=== PATIENT | male | born 1945 | race Caucasian/White ===

== ENCOUNTER → 2016-10-23 | Outpatient (CLI) | payer MEDICARE ==
[~2016-10-23] VITALS: Ht 177.8 cm; Wt 70.3 kg
[~2016-10-23] MED LIST: ACET325T49 PEG; BACI28.4 TOP; CYAN250010 PO; DOCU-143 PO; FAMO20TA5 PEG; FOLI1TAB24 PEG; HYDR-3820 PO; LIDOCAINE 1% INJ 20 ML (XYLOCAINE) VIAL ONE; LISI10TA2 PO; MAGN420T PO; NYST15CR TP; POTA20PA28 PO; PYRI50TA10 PO; SERT50TA2 PO; TAMS0.4C98 PO; THIA100T12 PO; TRAM-42 PO
--- NOTE | 2016-10-23 16:08 | Diagnostic Imaging Report ---
EXAMINATION: Ultrasound guided thoracentesis-right. INDICATION: Right pleural effusion. CONSENT: Informed consent was obtained from the patient. The risks, benefits, potential complications and alternatives were reviewed and all questions answered to the patient's satisfaction. FINDINGS: Moderate right pleural effusion with mild degree and minimal septation seen. PROCEDURE: After sterile preparation and draping, 1% lidocaine was utilized for local anesthesia. An appropriate intercostal approach is selected based on preliminary scanning with ultrasound. Under live visualization with ultrasound, 6.5 Maltese drainage catheter is introduced with trocar technique into the right pleural space. Image of proper location of the needle is documented. The needle is removed and the sheath is left in the pleural space. A total of 0.8 L of serous yellow fluid is drained. The sheath is removed at the end of the drainage procedure. The fluid is sent to the lab for Analysis. The patient tolerated the procedure well with no immediate complications. IMPRESSION: Successful ultrasound-guided thoracentesis on the right. Dictated by: Dictated on workstation # [id number]
[2016-10-23 16:26] LABS: GLUCOSE,BODY FLUID 99 MG/DL
[2016-10-23 16:27] LABS: LDH,BODY FLUID 202 U/L; TOTAL PROTEIN,BODY FLUID 2.9 G/DL
--- NOTE | 2016-10-23 18:01 | Diagnostic Imaging Report ---
EXAMINATION: AP and lateral views of the chest. INDICATION: Chronic back pain. Status post thoracentesis. FINDINGS: There is a mild opacity in the right lung base may relate to atelectasis. The left lung is clear. The heart size is normal. No effusion or pneumothorax. The mediastinum and nicolas appear unremarkable. IMPRESSION: Mild right basilar opacity might relate to atelectasis. Dictated by: Dictated on workstation # [id number]
== END ==
LOC: RAD 14:59 → EDBD 14:59
PROVIDERS: ATTEND Internal Medicine Critical Care Medicine
DX: J90 Pleural effusion, not elsewhere classified (principal); R91.8 Other nonspecific abnormal finding of lung field; M54.9 Dorsalgia, unspecified
CPT/HCPCS: 32555; 71020; 82945; 83615; 84157; 87070; 87075; 87205; 88112; 88305; 89051

== ENCOUNTER → 2016-10-30 | Outpatient (CLI) | payer MEDICARE, OTHER ==
[~2016-10-30] MED LIST changes: +CATHETER FLUSH 10 ML SYR IV PRN; +IOHEXOL 350 MG/ML 100 ML (OMNIPAQUE 350) VIAL IV ONE; -LIDOCAINE 1% INJ 20 ML (XYLOCAINE) VIAL ONE; +NS 100 ML (IVPB) BAG IV ONE
[2016-10-30 10:12] LABS: BLOOD UREA NITROGEN 6 MG/DL (7-18); BUN/CREATININE RATIO 12; CREATININE SERUM 0.51 MG/DL (0.60-1.30); GFR ESTIMATED > 60
--- NOTE | 2016-10-30 11:08 | Diagnostic Imaging Report ---
PROCEDURE: CT chest with contrast only. TECHNIQUE: Multiple contiguous axial images were obtained through the chest after administration of intravenous contrast. INDICATION: Lung nodule, pleural fluid. Thoracentesis one week ago. There is no pneumothorax. Comparison limited to an outside study performed 10/12/2016 with only its coronal and sagittal reconstructions. The axial data not submitted. When differing modalities taken into account the right pleural fluid volume present today is likely at least mildly decreased from the previous. Layers to an AP depth of 3.1 cm subjacent dependent basilar atelectasis noted. Ectasia in the ascending aorta 4.4 cm present. The arch and descending thoracic aorta nonaneurysmal. No dissection, mural hemorrhage or vessel rupture. There is no pericardial effusions. Coronary arterial calcifications chronic. There is no hilar or mediastinal lymphadenopathy. Some air trapping and features of COPD. A few scattered micronodules are noted in the right middle lobe. Tiny nodule measuring 3 mm present. An additional right upper lobe nodule anteriorly is 3.8 mm. A few minute 2-3 mm subpleural nodular foci bilaterally are noted. There was no dominant or spiculated lung mass. No acute soft tissue or osseous chest wall pathology. The visualized upper abdomen shows no focal acute abnormality. IMPRESSION: Pleural fluid probably decreased in volume from recent outside study. There is no pneumothorax. There is no thoracic adenopathy. There is mild basilar atelectasis. There are a few tiny micronodules in the lungs with no dominant or suspicious appearing mass. Followup in 6-12 months recommended. Ascending aortic ectasia 4.4 cm without rupture or dissection. Coronary arterial atherosclerotic vascular calcifications noted. Dictated by: Dictated on workstation # [id number]
== END ==
LOC: RAD 09:39
PROVIDERS: ATTEND Internal Medicine Critical Care Medicine
DX: R91.8 Other nonspecific abnormal finding of lung field (principal); I25.10 Atherosclerotic heart disease of native coronary artery without angina pectoris; I77.811 Abdominal aortic ectasia; J90 Pleural effusion, not elsewhere classified
CPT/HCPCS: 36415; 71260; 82565; 84520

== ENCOUNTER 2016-11-11 09:55 | Outpatient (CLI) | payer MEDICARE, OTHER ==
[~2016-11-11] VITALS: Ht 177.8 cm; Wt 65.8 kg
[2016-11-11 10:05] VITALS: BP 103/55
[2016-11-11 10:47] LABS: BASOPHILS % (AUTO) 1 % (0-10); EOSINOPHILS # (AUTO) 0.2 10^3/uL (0.0-0.3); EOSINOPHILS % (AUTO) 3 % (0-10); LYMPHOCYTES # (AUTO) 1.1 X 10^3 (1.0-4.0); LYMPHOCYTES % (AUTO) 18 % (12-44); MEAN CORPUSCULAR HEMOGLOBIN 29 PG (25-34); MEAN CORPUSCULAR HGB CONC 33 G/DL (32-36); MEAN CORPUSCULAR VOLUME 86 FL (80-99); MEAN PLATELET VOLUME 9.6 FL (7.4-10.4); MONOCYTES # (AUTO) 0.7 X 10^3 (0.0-1.0); MONOCYTES % (AUTO) 11 % (0-12); NEUTROPHILS # (AUTO) 4.1 X 10^3 (1.8-7.8); NEUTROPHILS % (AUTO) 66 % (42-75); PLATELET COUNT 364 10^3/uL (130-400); RED BLOOD COUNT 3.98 10^6/uL (4.35-5.85); RED CELL DISTRIBUTION WIDTH 13.7 % (10.0-14.5); WHITE BLOOD COUNT 6.2 10^3/uL (4.3-11.0)
[2016-11-11] MEDS ORDERED: SERT50TA2 PO (10:49)
[2016-11-11] MEDS ORDERED: TRAM-42 PO (10:49)
[2016-11-11] MEDS ORDERED: DOCU-143 PO (10:49)
[2016-11-11] MEDS ORDERED: THIA100T12 PO (10:49)
[2016-11-11] MEDS ORDERED: LISI10TA2 PO (10:49)
[2016-11-11] MEDS ORDERED: PYRI50TA10 PO (10:49)
[2016-11-11] MEDS ORDERED: CYAN250010 PO (10:49)
[2016-11-11] MEDS ORDERED: TAMS0.4C98 PO (10:49)
[2016-11-11 11:06] LABS: ANION GAP 11 MMOL/L (5-14); BLOOD UREA NITROGEN 14 MG/DL (7-18); BUN/CREATININE RATIO 25; CALCIUM 8.4 MG/DL (8.5-10.1); CARBON DIOXIDE 23 MMOL/L (21-32); CHLORIDE 102 MMOL/L (98-107); CREATININE SERUM 0.55 MG/DL (0.60-1.30); GFR ESTIMATED > 60; GLUCOSE 105 MG/DL (70-105); POTASSIUM 4.2 MMOL/L (3.6-5.0); SODIUM 136 MMOL/L (135-145)
[2016-11-28] MEDS ORDERED: POTA20PA28 PO (12:35)
[2016-11-28] MEDS ORDERED: FAMO20TA5 PEG (12:35)
[2016-11-28] MEDS ORDERED: FOLI1TAB24 PEG (12:35)
[2016-11-28] MEDS ORDERED: BACI28.4 TOP (12:35)
[2016-11-28] MEDS ORDERED: NYST15CR TP (12:35)
[2016-11-28] MEDS ORDERED: ACET325T49 PEG (12:35)
== END 2016-11-11 10:35 | disposition home or self-care (01) ==
LOC: PREOP 09:55
PROVIDERS: ATTEND Orthopaedic Surgery Orthopaedic Surgery of the Spine
DX: Z01.812 Encounter for preprocedural laboratory examination (principal); Z11.2 Encounter for screening for other bacterial diseases; M48.02 Spinal stenosis, cervical region; Z22.322 Carrier or suspected carrier of Methicillin resistant Staphylococcus aureus
CPT/HCPCS: 36415; 80048; 85025; 87081

== ENCOUNTER 2016-11-17 09:32 | Inpatient (IN) | payer MEDICARE, OTHER ==
[~2016-11-17] VITALS: Ht 177.8 cm; Wt 65.8 kg
[~2016-11-17 09:32] MED LIST changes: -ACET325T49 PEG; -BACI28.4 TOP; -CATHETER FLUSH 10 ML SYR IV PRN; -FAMO20TA5 PEG; -FOLI1TAB24 PEG; -HYDR-3820 PO; -IOHEXOL 350 MG/ML 100 ML (OMNIPAQUE 350) VIAL IV ONE; -MAGN420T PO; -NS 100 ML (IVPB) BAG IV ONE; -NYST15CR TP; -POTA20PA28 PO
--- OUTSIDE RECORDS SUMMARY | 2016-11-17 09:38 | XMS REPORT | Continuity of Care Document ---
Author Author [facility] Organization [facility] Address Unknown Phone Unavailable Care Team Providers Care Machine Bender Name Role Phone MARIANA GIBBS DO PCP Insurance Providers Payer Name Policy Number Subscriber Name Relationship [employer] [id number] Anthony Grider 20 Self / Same As Patient [facility] [id number] Anthony Grider Self / Same As Patient Advance Directives Directive Response Recorded Date/Time Advance Directives Yes 11/11/16 10:06am Health Care Power of Repairer Helper Yes 11/11/16 10:06am Organ Donor Yes 11/11/16 10:06am Resuscitation Status Full Code 11/11/16 10:06am Problems No problem information available. Medications Current Home Medications Medication Dose Units Route Directions Days/Qty Instructions Start Date Cyanocobalamin (Vitamin B-12) Unknown Strength 1,000 Mcg Oral Daily 11/11/16 Docusate Sodium 100 Mg 100 Mg Oral Twice A Day 11/11/16 Lisinopril 10 Mg 10 Mg Oral Daily 11/11/16 Pyridoxine Hcl 50 Mg 50 Mg Oral Daily 11/11/16 Sertraline Hcl 50 Mg 50 Mg Oral Daily 11/11/16 Thiamine Hcl 100 Mg 100 Mg Oral Daily 11/11/16 Tramadol Hcl 50 Mg 100 Mg Oral Three Times A Day take 2 (50mg) tabs Tamsulosin Hcl 0.4 Mg 0.4 Mg Oral Bedtime 11/11/16 Social History Social History Problem Response Recorded Date/Time Alcohol Use Denies Use 11/11/2016 10:07am Recreational Drug Use No 11/11/2016 10:07am Recent Foreign Travel No 11/11/2016 10:04am Recent Infectious Disease Exposure No 11/11/2016 10:04am Smoking Status Former Smoker 11/11/2016 10:06am Recent Hopitalizations No 11/11/2016 10:07am Query Response Start Date Stop Date Smoking Status Former Smoker Hospital Discharge Instructions No hospital discharge instructions. Plan of Care Discharge Date 11/11/16 10:35am Prescriptions See Medication Section Functional Status No functional status results. Allergies, Adverse Reactions, Alerts Allergen Type Severity Reaction Status Last Updated Morphine Allergy Unknown HIVES Active 11/11/16 adhesive tape Allergy Unknown Active 11/11/16 Immunizations No immunization records. Vital Signs Acute Vital Signs Vital Response Date/Time Pulse Rate (adult) 73 bpm (60 - 90) 11/11/2016 10:05am O2 Sat by Pulse Oximetry 97 % (88 - 100) 11/11/2016 10:05am Blood Pressure 103/55 mm Hg 11/11/2016 10:05am Blood Pressure Mean 71 mm Hg 11/11/2016 10:05am Pain Numeric Pain Scale 10-Worst Possible Pain 11/11/2016 10:05am Height (Feet) 5 feet 11/11/2016 10:04am Height (Inches) 10.00 inches 11/11/2016 10:04am Height (Calculated Centimeters) 177.357298 cm 11/11/2016 10:04am Weight (Pounds) 145 pounds 11/11/2016 10:04am Weight (Ounces) 0.0 oz 11/11/2016 10:04am Weight (Calculated Grams) 09030.89 gm 11/11/2016 10:04am Weight (Calculated Kilograms) 65.281677 kilograms 11/11/2016 10:04am Calculated BMI 20.8 11/11/2016 10:04am Results Laboratory Results Test Name Result Units Flags Reference Collection Date/Time Result Date/ Time Comments Body Fluid Source PLEURAL 10/23/2016 3:50pm 10/23/2016 4:38pm Body Fluid Color PALE YELLOW 10/23/2016 3:50pm 10/23/2016 4:38pm Body Fluid Appearance MOD CLDY 10/23/2016 3:50pm 10/23/2016 4:38pm Body Fluid WBC 550 /uL 10/23/2016 3:50pm 10/23/2016 4:38pm Body Fluid RBC 5500 /uL 10/23/2016 3:50pm 10/23/2016 4:38pm Body Fluid Polynuclear WBCs 21 % 10/23/2016 3:50pm 10/23/2016 7:07pm Body Fluid Mononuclear WBCs 26 % 10/23/2016 3:50pm 10/23/2016 7:07pm Body Fluid Lymphocytes 53 % 10/23/2016 3:50pm 10/23/2016 7:07pm Body Fluid Other Cells 0 % 10/23/2016 3:50pm 10/23/2016 7:07pm Body Fluid Glucose 99 MG/DL 10/23/2016 3:50pm 10/23/2016 4:27pm BODY FLUID SOURCE PLEURAL FLUID. Body Fluid Total Protein 2.9 G/DL 10/23/2016 3:50pm 10/23/2016 4: 27pm BODY FLUID SOURCE PLEURAL FLUID. Body Fluid Lactate Dehydrogenase 202 U/L 10/23/2016 3:50pm 2016 4:27pm BODY FLUID SOURCE PLEURAL FLUID. Pending Laboratory Results Test Name Collection Date/Time Microbiology Results Procedure Source Result Collection Date/Time Result Date/Time Anaerobic Culture Pleural Fluid No growth 10/23/2016 3:50pm 10/25/2016 1: 25pm Body Fluid Culture Pleural Fluid No growth 10/23/2016 3:50pm 10/24/2016 8: 57am Procedures Procedure Status Date Provider(s) ASPIRATE PLEURA W/ IMAGING Completed 10/23/16 SANIYA JESUS MD Encounters Encounter Location Arrival/Admit Date Discharge/Depart Date Attending Provider Departed Clinic [facility] 11/11/16 9:55am 11/11/16 10: 35am JUDY MERLOS MD Registered Clinic [facility] 10/30/16 9:39am VIDAL TOMLINSON DO Registered Clinic [facility] 10/23/16 2:59pm VIDAL TOMLINSON DO
[2016-11-17] MEDS: LACTATED RINGERS 1,000 ML IV PRN ×2 (09:50→12:23)
[2016-11-17] MEDS ORDERED: ceFAZolin 1 GM/NS 50 ML IVPB IV ONE ×2 (10:00)
[2016-11-17] MEDS ORDERED: GENTAMICIN 40 MG/ML 2 ML INJ SDV ONE (10:11)
[2016-11-17] MEDS ORDERED: DEXMEDETOMIDINE PRE-MIX (OR) 50 ML IV ONE (10:16)
[2016-11-17] MEDS ORDERED: LIDOCAINE JELLY 2% (XYLOCAINE) 5 ML TUBE ONE (10:29)
[2016-11-17] MEDS ORDERED: fentaNYL INJECTION 100 MCG/2 ML AMP ONE (10:29)
[2016-11-17] MEDS ORDERED: LIDOCAINE PF 2% 10 ML (XYLOCAINE) AMP ONE (10:29)
[2016-11-17] MEDS ORDERED: proPOfol 200 MG/20 ML (DIPRIVAN) VIAL IV ONE (10:29)
[2016-11-17] MEDS ORDERED: ONDANSETRON 4 MG/2 ML (SDV) Z0FRAN ONE (10:29)
[2016-11-17] MEDS ORDERED: LACTATED RINGERS 1,000 ML IV ONE ×2 (10:29→12:38)
[2016-11-17] MEDS ORDERED: ROCURONIUM 50 MG/5 ML (ZEMURON) VIAL IV ONE (10:29)
[2016-11-17] MEDS ORDERED: MIDAZOLAM 2 MG/2 ML (VERSED) VIAL ONE (10:30)
[2016-11-17 10:41] VITALS: BP 134/66
[2016-11-17] MEDS ORDERED: DOCUSATE SODIUM 100 MG (COLACE) CAP PO PRN (10:45)
[2016-11-17] MEDS ORDERED: ONDANSETRON 4 MG/2 ML (SDV) Z0FRAN IV PRN (10:45)
[2016-11-17] MEDS ORDERED: PROMETHAZINE 12.5 MG (PHENERGAN) SUPP PR PRN (10:45)
[2016-11-17] MEDS ORDERED: PROMETHAZINE 25 MG (PHENERGAN) TAB PO PRN (10:45)
[2016-11-17] MEDS ORDERED: PROMETHAZINE INJ 25 MG/ML (PHENERGAN) AMP IM PRN (10:45)
[2016-11-17] MEDS ORDERED: ACETAMINOPHEN 325 MG TABLET/CAPLET (TYLENOL) PO PRN (10:45)
[2016-11-17] MEDS ORDERED: SUCCINYLCHOLINE INJ 100 MG/5 ML SYR ONE (12:38)
[2016-11-17] MEDS ORDERED: SEVOFLURANE (ULTANE) 15 ML INHAL SOLN ONE ×10 (12:38→13:05)
--- NOTE | 2016-11-17 12:39 | Progress Note-Post Operative ---
Post-Operative Progess Note Metallurgical Analyst HUEY Miles Pre-Operative Diagnosis Cervical Spondylosis with Myelopathy Post-Operative Diagnosis Same Post-Op Procedure Note Date of Procedure: Nov 17, 2016 Name of Procedure: C5 Corpectomy and C3-4 and C6-7 ACDF and reconstruction Procedure Note/Findings Severe Stenosis Anesthesia Type GETA Estimated blood loss (mL): 100 JUDY MERLOS MD Nov 17, 2016 12:39 pm
[2016-11-17] MEDS ORDERED: morphine INJ 10 MG/ML 1ML (SYR OR VIAL) ONE (12:53)
[2016-11-17] MEDS ORDERED: DEXAMETHASONE PF 10 MG/ML (DECADRON) VIAL ONE (13:05)
[2016-11-17] MEDS: fentaNYL INJECTION 100 MCG/2 ML AMP IVP PRN ×8 (13:06→22:48)
[2016-11-17] MEDS: MEPERIDINE (DEMEROL) INJ 50 MG/ML IVP PRN ×2 (13:14→13:30)
[2016-11-17] MEDS ORDERED: ONDANSETRON 4 MG/2 ML (SDV) Z0FRAN IVP PRN (13:15)
[2016-11-17] MEDS ORDERED: HYDROmorphone (DILAUDID) 2 MG/ML VIAL IVP PRN (13:30)
[2016-11-17] MEDS ORDERED: LORazepam INJ 2 MG/ML (ATIVAN) VIAL IVP ONE (13:45)
[2016-11-17] MEDS: NS IV 1000 ML 1,000 ML IV SCH (14:40)
--- NOTE | 2016-11-17 15:12 | Diagnostic Imaging Report ---
EXAMINATION: Fluoroscopy. INDICATION: Cervical spine fusion. TECHNIQUE: Fluoroscopic assistance was provided for Dr. Alexander Lee during his cervical spine fusion procedure. 7.5 seconds of fluoroscopy time was utilized. FINDINGS: AP and lateral spot films of the cervical spine were received from the OR. There is an orthopedic plate and screw fixation device along the anterior aspect of the cervical spine extending from C3 to what appears to be C7 or T1. The inferior most portion of the orthopedic hardware is not included on the lateral view. There also appears to have been a corpectomy at C4 and C5. IMPRESSION: Fluoroscopic assistance was provided for Dr. Lee during his cervical spine fusion procedure. A followup AP and lateral study would be recommended for continued evaluation. Dictated by: Dictated on workstation # [id number]
[2016-11-17 15:25] VITALS: BP 135/67
[2016-11-17] MEDS: HYDROcodone/APAP 5 MG/325 MG (LORTAB) TAB PO PRN ×2 (15:41→21:08)
[2016-11-17] MEDS ORDERED: FAMOTIDINE 20MG/2ML IV (PEPCID) ONE (15:41)
[2016-11-17] MEDS ORDERED: FAMOTIDINE 20MG/2ML IV (PEPCID) IV PRN (16:15)
[2016-11-17] MEDS ORDERED: MAGN420T PO (16:25)
[2016-11-17] MEDS: FAMOTIDINE 20MG/2ML IV (PEPCID) IV SCH ×2 (16:50→20:03)
[2016-11-17] MEDS ORDERED: FAMOTIDINE 20 MG (PEPCID) TABLET PO SCH (18:00)
[2016-11-17] MEDS: ceFAZolin INJECTION 1,000 MG in NS (IVPB) 50 ML IV SCH (18:07)
[2016-11-17 19:01] VITALS: BP 144/67
[2016-11-17 23:59] VITALS: BP 141/65
[2016-11-18] MEDS: ceFAZolin INJECTION 1,000 MG in NS (IVPB) 50 ML IV SCH ×2 (01:08→09:26)
[2016-11-18] MEDS: HYDROcodone/APAP 5 MG/325 MG (LORTAB) TAB PO PRN ×4 (01:49→18:55)
[2016-11-18 04:00] VITALS: BP 161/71
[2016-11-18] MEDS: NS IV 1000 ML 1,000 ML IV SCH ×2 (04:19→16:10)
[2016-11-18] MEDS: MULTIVIT W/MINERALS TAB (THERAGRAN M) PO SCH (06:03)
--- NOTE | 2016-11-18 07:29 | OPERATIVE REPORT ---
PROCEDURE PHYSICIAN: JUDY LEE DATE OF PROCEDURE: 11/17/3016 PREOPERATIVE DIAGNOSES: 1. Severe cervical stenosis, neural canal and neural foramina due to disk and osseous structures. 2. Cervical spondylosis with myelopathy. 3. Previous cervical fusion and cervical myelomalacia. 4. Gait disturbance. 5. Bladder incontinence. POSTOPERATIVE DIAGNOSES: 1. Severe cervical stenosis, neural canal and neural foramina due to disk and osseous structures. 2. Cervical spondylosis with myelopathy. 3. Previous cervical fusion and cervical myelomalacia. 4. Gait disturbance. 5. Bladder incontinence. PROCEDURE PERFORMED: 1. C5 corpectomy with decompression of the 4-5 and C5-6 levels. 2. C5 cage reconstruction for corpectomy defect. 3. C3-4 anterior cervical diskectomy and fusion. 4. C6-7 anterior cervical diskectomy and fusion. 5. C3-4 and C6-7 interbody cage instrumentation without interval fixation. 6. Removal of C2-3 anterior instrumentation. 7. C3-7 anterior cervical plate instrumentation. 8. Autograph for spine surgery local. DATE AND TIME OF SURGERY: Please see anesthesia record. IMPLANTS USED: 1. Medtronic [place] elite plate. 2. Medtronic pure mesh cage. 3. K2M peek cervical cages. SURGEON: Dr. Lee. STALLION KEEPER: KATY Miles. ROLE OF SAP BASIS CONSULTANT: Aid in retraction of procedure, aid in implantation of instrumentation and wound closure. ANESTHESIA: General endotracheal. ESTIMATED BLOOD LOSS: 100 mL. IV FLUIDS: Please see anesthesia record. ANTIBIOTICS: Ancef. COMPLICATIONS: None. INDICATION FOR PROCEDURE: Mr. Grider is a 71-year-old male with progressively intolerable myelopathy features, high-grade cervical stenosis with cord compression, myelomalacia, failure of conservative therapy, desires operative treatment. DESCRIPTION OF PROCEDURE: The patient was taken to the preoperative holding area and brought back to the operating suite. After adequate induction of general anesthetic, preoperative antibiotics were placed, and spinal monitoring, sterile prep and draped, the anterior cervical spine, standard. Left-sided Mack-Swan approach through an oblique incision from C2-C7 was carried out. Full exposure performed and starting at C4-5 and 5-6 [place] [facility] pins were placed from C4-6 and a full midline corpectomy and vertebrectomy greater than 16 mm wide was performed of C5, full decompression down the posterior longitudinal ligament was carried out. Significant stenosis was removed and then a Pyramesh 60 mm round was fashioned and fit into the defect, filled with allograft bone and impacted in position to replace the entire C5 body. Once this was performed then a C3-4 and C6-7 anterior cervical diskectomy and fusion was carried out. Peek cage was filled with allograft bone were packed in to these levels well. Plate was removed from the 2-3 level and then a new Larrabee elite plate was fixed to the spine from C3-7 with variable angle screws. Locking mechanism was deployed. Wound was copiously irrigated. Deep drain was placed. The wound was closed in layers. Neural monitoring was stable. The patient was transferred to the recovery room in stable condition having tolerated the procedure well. Job ID: [id number] Dictated Date: 11/17/2016 12:42:57 Social Worker Clinical Date: 11/17/2016 13:02:36 / mare
[2016-11-18 08:00] VITALS: BP 161/71
[2016-11-18] MEDS: FAMOTIDINE 20 MG (PEPCID) TABLET PO SCH ×2 (09:25→20:06)
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
--- NOTE | 2016-11-18 10:12 | Consultation-Hospitalist ---
HPI History of Present Illness: HPI/Chief Complaint CC: Cervical spine surgery POD # 1 HPI: This is a 71yoWM pt with hx of COPD that presents after extensive cervical spine surgery that was uncomplicated by Dr. Lee. I have reconciled all home meds and will order Duoneb TID. Patient Interview: Pt states that he did not speak with Dr. Malik yesterday. Dr. Devine informs pt that she has reconciled all home meds. Pt states that he has been using IS. Pt does not wear O2 or nivia breathing treatments at home. Pt states that he is a former smoker. Pt states that PCP is Dr. Bolanos. Pt states that he worked at the [employer] department for 30 years in [place]. Physical exam stable. Pt states that he lives with his son and daughter-in- law. Pt requests pain medicine Scribed by Talib Walker under the direct supervision of Dr. Devine. Source: patient Exam Limitations: no limitations Date Seen 11/18/16 Attending Physician Alexander Lee MD PCP Vishal Bolanos DO Referring Physician Date of Admission Nov 17, 2016 at 09:32 Home Medications & Allergies Home Medications Reviewed patient Home Medication Reconciliation Form Allergies Coded Allergies: adhesive tape (Verified Allergy, Unknown, 11/11/16) morphine (Verified Allergy, Unknown, HIVES, 11/11/16) Past Ydhuwbb-Tgjkrk-Sqbbse Hx Patient Social History Marrital Status: Employed/Student: retired ([employer] for 30 years) Alcohol Use: Denies Use Recreational Drug Use: No Smoking Status: Former Smoker Type Used: Cigarettes Physical Abuse Screen: No Sexual Abuse: No Recent Foreign Travel: No Contact w/other who traveled: No Recent Hopitalizations: No Recent Infectious Disease Expo: No Immunizations Up To Date Date of Pneumonia Vaccine: Oct 20, 2012 Date of Influenza Vaccine: Jun 18, 2017 Seasonal Allergies Seasonal Allergies: No Surgeries HX Surgeries: Yes Respiratory Hx Respiratory Disorders: Yes Respiratory Disorders: COPD Cardiovascular Hx Cardiovascular Disorders: Yes Cardiac Disorders: High Cholesterol, Hypertension Neurological Hx Neurological Disorders: Yes Neurological Disorders: Neuropathy Genitourinary Hx Genitourinary Disorders: Yes Genitourinary Disorders: Benign Prostatic Hyperpl Gastrointestinal Hx Gastrointestinal Disorders: No Musculoskeletal Hx Musculoskeletal Disorders: Yes Musculoskeletal Disorders: Arthritis, Chronic Back Pain Endocrine Hx Endocrine Disorders: No HEENT HEENT Disorders: Cataract Cancer Hx Cancer: No Psychosocial Hx Psychiatric Problems: No Family Medical History Family Hx: Arthritis 19 MOTHER G8 SISTER Completed stroke 19 MOTHER Hypertension 19 FATHER 19 MOTHER G8 BROTHER G8 SISTER Myocardial infarction G8 SISTER Review of Systems Constitutional: see HPI EENTM: no symptoms reported Respiratory: no symptoms reported Cardiovascular: no symptoms reported Gastrointestinal: no symptoms reported Genitourinary: no symptoms reported Musculoskeletal: no symptoms reported Skin: no symptoms reported Psychiatric/Neurological: No Symptoms Reported All Other Systems Reviewed Negative Unless Noted: Yes Physical Exam Physical Exam Vital Signs Vital Sign - Last 12Hours 11/17/16 11/17/16 10:41 15:25 Temp 98.2 Pulse 68 Resp 16 B/P 134/66 Pulse Ox 99 O2 Delivery Room Air O2 Flow Rate 1.50 Capillary Refill : General Appearance: No Apparent Distress WD/WN Chronically ill Thin Eyes: Bilateral Eye Normal Inspection, Bilateral Eye PERRL HEENT: PERRL/EOMI Normal ENT Inspection Pharynx Normal Neck: Full Range of Motion Normal Inspection Non Tender Supple Carotid Bruit Respiratory: Chest Non Tender Lungs Clear No Accessory Muscle Use No Respiratory Distress Decreased Breath Sounds Cardiovascular: Regular Rate, Rhythm No Edema No Gallop No JVD No Murmur Normal Peripheral Pulses Gastrointestinal: Normal Bowel Sounds No Organomegaly No Pulsatile Mass Non Tender Soft Back: Normal Inspection No CVA Tenderness No Vertebral Tenderness Extremity: Normal Capillary Refill Normal Inspection Normal Range of Motion Non Tender No Calf Tenderness No Pedal Edema Neurologic/Psychiatric: Alert Oriented x3 No Motor/Sensory Deficits Normal Mood/Affect Skin: Normal Color Warm/Dry Lymphatic: No Adenopathy Assessment/Plan Admission Diagnosis Assessment: Cervical spine surgery uncomplicated performed by Dr. Lee POD # 1 COPD Hypertension BPH Assessment and Plan Plan: Pain meds Reconciled all home meds Duoneb TID Monitor BP Monitor for urinary retention since he does have a catheter Clinical Quality Measures DVT/VTE Risk/Contraindication: Risk Factor Score Per Nursin RFS Level Per Nursing on Admit: 4+=Very High BRIJESH DEVINE DO Nov 18, 2016 10:11
[2016-11-18] MEDS: fentaNYL INJECTION 100 MCG/2 ML AMP IVP PRN ×2 (11:22→16:10)
--- NOTE | 2016-11-18 11:29 | Diagnostic Imaging Report ---
INDICATION: Postoperative neck fusion. COMPARISON STUDY: Intraoperative fluoroscopy from November 17. FINDINGS: There is 5 mm of anterolisthesis of C2 on C3. This appears to be fused. Corpectomy of C5 and C6 is present. ACDF of C3 and C4 with a bar connecting the ACDF of C7 and T1 are present. The hardware appears to be well-positioned. IMPRESSION: There are post operative changes of the cervical spine as above. Dictated by: Dictated on workstation # [id number]
--- NOTE | 2016-11-18 11:38 | Anesthesia-General Post-Op ---
General Patient Condition Mental Status/LOC: Same as Preop Cardiovascular: Satisfactory Nausea/Vomiting: Absent Respiratory: Satisfactory Pain: Controlled Complications: Absent Post Op Complications Complications None Follow Up Care/Instructions Patient Instructions None needed. Anesthesia/Patient Condition Patient Condition Patient is doing well, no complaints, stable vital signs, no apparent adverse anesthesia problems. No complications reported per nursing. LOBITO ACOSTA CRNA Nov 18, 2016 11:38
[2016-11-18 12:00] VITALS: BP 145/67
--- NOTE | 2016-11-18 12:56 | Occupational Therapy Eval ---
OT Evaluation-General/PLF Medical Diagnosis Admission Date Nov 17, 2016 at 09:32 Medical Diagnosis: cervical spondylosis with myelopathy Onset Date: Nov 17, 2016 Therapy Diagnosis Therapy Diagnosis: impaired self care skills Height/Weight Height (Feet): 5 Height (Inches): 10.00 Weight (Pounds): 145 Weight (Ounces): 0.0 Precautions Precautions/Isolations: Fall Prevention, Standard Precautions Safety Interventions: None Comments cervical collar Weight Bear Status Weight Bearing Restriction: Weight Bearing/Tolerated Location Restriction: LE Bilateral Referral Physician: Rosa Medical History Pertinent Medical History: Arthritis, COPD, CVA, HTN Additional Medical History high cholesterol, neuropathy, chronic back pain, arthritis Current History s/p C3-4 and C6-7 ACDF; C5 Corpectomy Reviewed History: Yes Social History Home: Senior Living Current Living Status: Children (son and daughter in law) Pt states he was recently at [facility] for 3 weeks, but had returned home for 1.5 weeks prior to surgery. ADL-Prior Level of Function ADL PLOF Comments Pt states he required assist for all ADLs and was mostly in bed at home. Pt states he has been non-ambulatory. Was getting home health care. DME/Equipment: Bath Chair, Bedside Commode, Shower, Toilet/Riser DME/Equipment Comments Hospital bed, w/c, FWW OT Current Status Subjective Pt sitting in chair, agrees to therapy. Pt reports 9/10 back pain, RN present and aware. Mental Status/Objective Patient Orientation: Person, Place Attachments: Drains, Jones Catheter, IV Current Dentures/Partials: Yes (upper) Hand Dominance: Right Upper Extremity ROM Mildly decreased right shoulder ROM. Upper Extremity Coordination Impaired Upper Extremity Sensation Impaired Upper Extremity Strength Pt has impaired strength bilateral UE ADL-Treatment ADL-Current Pt participated in UE assessment while seated. Pt has difficulty picking up or holding onto items. Pt states he has been using built up utensils. Pt was issued red foam for eating utensils while in hospital. Pt performed sit to stand x2 with moderate assistance. Pt stood with FWW. Pt requires cues for safety during mobility. Pt sitting in chair with needs met and brother present after session. Functional [place] Measure 0=Not Assessed/NA 4=Minimal Assistance 1=Total Assistance 5=Supervision or Setup 2=Maximal Assistance 6=Modified [place] 3=Moderate Assistance 7=Complete IndependenceIRFPAI Quality Coding Scale 6 Independent with activity with or without an assistive device 5 Patient requires set up or clean up by helper. Patient completes activity by themselves 4 Supervision or touching assist (CGA). [place] provide cues , steadying assist 3 The helper provides less than half the effort to complete the activity 2 The helper provides more than half the effort to complete the activity 1 Dependent. The helper does all the effort to complete an activity 7 Patient refused to complete or attempt activity 9 The patient did not perform the activity before the current illness or injury 88 Not attempted due to Medical conditions or safety concerns Education OT Patient Education: Rehab process Teaching Recipient: Patient Teaching Methods: Discussion Response to Teaching: Verbalize Understanding OT Short Term Goals Short Term Goals 1=Demonstrate adherence to instructed precautions during ADL tasks. 2=Patient will verbalize/demonstrate understanding of assistive devices/ modifications for ADL. 3=Patient will improve strength/tolerance for activity to enable patient to perform ADL's. OT Deputy Sheriff Generalist/Bailiff Goals Deputy Sheriff Generalist/Bailiff Goals Time Frame: Dec 02, 2016 Eating (FIM): 5 Grooming(FIM): 5 Upper Body Dressing(FIM): 4 Lower Body Dressing(FIM): 3 Toilet/Commode Transfer(FIM): 4 Additional Goals: 1-Demonstrate ADL Tasks, 2-Verbalize Understanding, 3- ImproveStrength/Xochilt 1=Demonstrate adherence to instructed precautions during ADL tasks. 2=Patient will verbalize/demonstrate understanding of assistive devices/ modifications for ADL. 3=Patient will improve strength/tolerance for activity to enable patient to perform ADL's. OT Education/Plan Problem List/Assessment Assessment: Decreased Activ Tolerance, Decreased Safety Aware, Decreased UE Strength, Dependent Transfers, Impaired Coordination, Impaired Funct Balance, Impaired Self-Care Skills Pt s/p C3-4 and C6-7 ACDF; C5 Corpectomy. Pt demonstrates impaired bilateral UE strength, coordination, transfers,and ADL functioning. Pt to benefit from skilled OT intervention for ADL training, transfers, strengthening, coordination , and safety education to maximize level of function and allow safe discharge plan. Discharge Recommendations Plan/Recommendations: Continue POC Treatment Plan/Plan of Care Treatment,Training & Education: Yes Patient would benefit from OT for education, treatment and training to promote independence in ADL's, mobility, safety and/or upper extremity function for ADL' s. Plan of Care: ADL Retraining, Functional Mobility, UE Funct Exercise/Act, UE Neuromus Re-Ed/Coord Treatment Duration: Dec 09, 2016 # of days/week 5 Visits Per Week: 5 Agreement: Yes Rehab Potential: Fair Time/GCodes Start Time: 10:57 Stop Time: 11:25 Total Time Billed (hr/min): 28 Billed Treatment Time 1 visit, LANDON(28minutes) GEE GOMEZ OT Nov 18, 2016 12:56
[2016-11-18] MEDS: SERTRALINE 50 MG (ZOLOFT) TABLET PO SCH (14:15)
[2016-11-18] MEDS: MAGNESIUM OXIDE (MAG-OX)400 MG TAB PO SCH (14:15)
--- NOTE | 2016-11-18 14:23 | Progress Note (SOAP) ---
Subjective Subjective/Events-last exam Feeling hands better already and walking better Objective Exam Vital Signs Date Time Temp Pulse Resp B/P Pulse Ox O2 Delivery O2 Flow Rate FiO2 11/18/16 12:00 98.7 80 20 145/67 100 Nasal Cannula 1.00 11/18/16 09:22 Nasal Cannula 1.00 11/18/16 08:24 1.00 11/18/16 08:00 98.0 78 16 161/71 99 Nasal Cannula 1.00 11/18/16 04:00 98.0 78 16 161/71 99 Nasal Cannula 1.00 11/17/16 23:59 97.9 76 20 141/65 98 Room Air 11/17/16 21:00 Nasal Cannula 1.00 11/17/16 19:01 98.4 76 18 144/67 97 Nasal Cannula 1.50 11/17/16 15:25 97.0 59 18 135/67 98 Nasal Cannula 1.50 I & O 11/18/16 07:00 Intake Total 4270 ml Output Total 2310 ml Balance 1960 ml Capillary Refill : General Appearance: No Apparent Distress HEENT: Other (Phonation normal, no stridor, ROSA in place) Neck: Supple Respiratory: No Accessory Muscle Use No Respiratory Distress Cardiovascular: Normal Peripheral Pulses Neurologic/Psychiatric: Alert Oriented x3 Other (Neuro unchanged) Assessment/Plan Assessment/Plan Assess & Plan/Chief Complaint Cervical Myelopathy Cervical Stenosis Plan: Continue current care Clinical Quality Measures DVT/VTE Risk/Contraindication: Risk Factor Score Per Nursin RFS Level Per Nursing on Admit: 4+=Very High JUDY MERLOS MD Nov 18, 2016 2:23 pm
--- NOTE | 2016-11-18 14:26 | Physical Therapy Daily Note ---
PT Daily Note-Current Subjective Patient is very agreeable to participate with PT. Pain Numeric Pain Scale: 5-Moderate Pain Location: Lower Location Body Site: Back Pain Description: Ache, Pressure Mental Status Patient Orientation: Normal For Age Attachments: Jones Catheter, IV Transfers Functional [place] Measure 0=Not Assessed/NA 4=Minimal Assistance 1=Total Assistance 5=Supervision or Setup 2=Maximal Assistance 6=Modified [place] 3=Moderate Assistance 7=Complete IndependenceIRFPAI Quality Coding Scale 6 Independent with activity with or without an assistive device 5 Patient requires set up or clean up by helper. Patient completes activity by themselves 4 Supervision or touching assist (CGA). [place] provide cues , steadying assist 3 The helper provides less than half the effort to complete the activity 2 The helper provides more than half the effort to complete the activity 1 Dependent. The helper does all the effort to complete an activity 7 Patient refused to complete or attempt activity 9 The patient did not perform the activity before the current illness or injury 88 Not attempted due to Medical conditions or safety concerns Transfers (B, C, W/C) (FIM): 3 Scootin Sit to/from Stand: 3 mod assist with all mobility Gait Training Gait (FIM): 2 Distance (FIM): 4=818-61 ft Distance: 75' Gait Level of Assist: 3 Gait Persons Needed: 1 Gait Assistive Device: FWW skilled verbal instruction to slow mariano to improve safe mobility Exercises Seated Therapy Exercises: Ankle pumps, Long arc quads, Hip flexion Seated Reps: 15 (x 2 sets) Assessment Patient tolerated treatment well and returned to up in recliner. PT to increase activity as tolerated by patient. PT Curb Supervisor Goals Usp Goals PT Usp Goals Time Frame: Nov 25, 2016 Transfers (B,C,W/C) (FIM): 3 Gait (FIM): 1 Gait distance (FIM): 1=up to 49 ft Distance: 15' Gait Level of Assist: 3 Gait Assistive Device: FWW PT Plan Treatment/Plan Treatment Plan: Continue Plan of Care Treatment Plan: Bed Mobility, Education, Functional Activity Xochilt, Functional Strength, Gait, Safety, Therapeutic Exercise, Transfers Treatment Duration: Nov 25, 2016 Visits Per Week: 11 Time/GCodes Time In: 1335 Time Out: 1358 Total Billed Treatment Time: 23 Total Billed Treatment 1 visit GT 15 min EX 8 min GALLITO WOODARD PT Nov 18, 2016 14:26
[2016-11-18] MEDS: RT-ALBUTEROL/IPRATROPIUM 3 ML (DUONEB) VIAL INH SCH ×3 (14:38→19:55)
[2016-11-18 16:28] VITALS: BP 171/76
[2016-11-18] MEDS: ALFUZOSIN HCL 10 MG TAB (UROXATRAL) PO SCH (18:52)
[2016-11-18] MEDS: DOCUSATE SODIUM 100 MG (COLACE) CAP PO SCH ×2 (20:06→22:13)
[2016-11-18 20:45] VITALS: BP 141/66
[2016-11-18 23:01] VITALS: BP 127/60
[2016-11-19] MEDS: NS IV 1000 ML 1,000 ML IV SCH ×3 (03:10→19:25)
[2016-11-19] MEDS: HYDROcodone/APAP 5 MG/325 MG (LORTAB) TAB PO PRN (03:10)
[2016-11-19] MEDS: MULTIVIT W/MINERALS TAB (THERAGRAN M) PO SCH (06:10)
[2016-11-19] MEDS: MAGNESIUM OXIDE (MAG-OX)400 MG TAB PO SCH ×2 (06:10→15:21)
--- NOTE | 2016-11-19 07:28 | Progress Note (SOAP) ---
Subjective Subjective/Events-last exam Pt continues to improve. States that he is walking better and the feeling is coming back into his hands. Objective Exam Vital Signs Date Time Temp Pulse Resp B/P Pulse Ox O2 Delivery O2 Flow Rate FiO2 11/18/16 23:01 98.3 89 20 127/60 96 Room Air 11/18/16 20:45 98.7 87 18 141/66 98 Nasal Cannula 1.00 11/18/16 20:15 Room Air 11/18/16 19:55 94 11/18/16 16:28 98.8 82 18 171/76 98 Nasal Cannula 1.00 11/18/16 14:38 1.00 11/18/16 12:00 98.7 80 20 145/67 100 Nasal Cannula 1.00 11/18/16 09:22 Nasal Cannula 1.00 11/18/16 08:24 1.00 11/18/16 08:00 98.0 78 16 161/71 99 Nasal Cannula 1.00 I & O 11/19/16 07:00 Intake Total 3602 ml Output Total 2400 ml Balance 1202 ml Capillary Refill : General Appearance: No Apparent Distress WD/WN Respiratory: No Accessory Muscle Use Extremity: Normal Capillary Refill Normal Range of Motion Neurologic/Psychiatric: Oriented x3 Sensory Deficit Skin: Normal Color Assessment/Plan Assessment/Plan Assess & Plan/Chief Complaint Cervical Myelopathy Cervical Stenosis Continue PT and pain control Probably transfer to inpatient rehab tomorrow Clinical Quality Measures DVT/VTE Risk/Contraindication: Risk Factor Score Per Nursin RFS Level Per Nursing on Admit: 4+=Very High HARRIET ORTEGA Nov 19, 2016 07:28
[2016-11-19] MEDS: RT-ALBUTEROL/IPRATROPIUM 3 ML (DUONEB) VIAL INH SCH ×3 (07:55→19:50)
[2016-11-19 08:00] VITALS: BP 159/72
[2016-11-19] MEDS ORDERED: MAGNESIUM OXIDE (MAG-OX)400 MG TAB PO SCH (08:00)
[2016-11-19] MEDS: DOCUSATE SODIUM 100 MG (COLACE) CAP PO SCH ×2 (09:46→20:19)
[2016-11-19] MEDS: FAMOTIDINE 20 MG (PEPCID) TABLET PO SCH ×2 (09:46→20:19)
[2016-11-19] MEDS: PYRIDOXINE (VITAMIN B-6) 50 MG TABLET PO SCH (09:46)
[2016-11-19] MEDS: CYANOCOBALAMIN 500 MCG TAB (VITAMIN B-12) PO SCH (09:46)
[2016-11-19] MEDS: THIAMINE 100 MG (VITAMIN B-1) TAB PO SCH (09:46)
[2016-11-19] MEDS: THERAPEUTIC MULTIVITAMINS LIQUID 5 ML UDC PO SCH (09:46)
[2016-11-19] MEDS: FOLIC ACID 1 MG TAB PO SCH (09:47)
[2016-11-19] MEDS: lisINopril 10 MG (PRINIVIL) TAB PO SCH (09:47)
--- NOTE | 2016-11-19 10:59 | Occupational Ther Daily Note ---
OT Current Status-Daily Note Subjective Pt sitting in chair, agrees to treatment. Pt reports 9/10 pain in back/hips. RN is present and provided pain medication. Mental Status/Objective Functional [place] Measure 0=Not Assessed/NA 4=Minimal Assistance 1=Total Assistance 5=Supervision or Setup 2=Maximal Assistance 6=Modified [place] 3=Moderate Assistance 7=Complete [place] Other Treatment Pt performed bilateral UE activity while seated to increase strength and activity tolerance. Pt performed AROM x15 reps at elbows, forearm, wrist, and fingers. Pt attempted to perform opposition exercises to increase coordination. Pt unable to oppose 4th and 5th digits to thumb and pt has impaired coordination during task. Pt used bilateral UE to stack small cones to increase coordination and grasp/release skills. Pt has difficulty fully opening right hand for grasp/release, but is able to do so with increased time. Bilateral hand woodwork teacher exercises x20 reps with minimal resistance therapy foam to increase woodwork teacher strength. Pt then used bilateral hands to orange picker machine operator and stack small blocks to increase coordination skills. Pt requires increased time for task, but is able to stack 8 blocks. Pt sitting in chair with needs met after session. OT Short Term Goals Short Term Goals 1=Demonstrate adherence to instructed precautions during ADL tasks. 2=Patient will verbalize/demonstrate understanding of assistive devices/ modifications for ADL. 3=Patient will improve strength/tolerance for activity to enable patient to perform ADL's. OT Prison Goals Prison Goals Time Frame: Dec 02, 2016 Eating (FIM): 5 Grooming(FIM): 5 Upper Body Dressing(FIM): 4 Lower Body Dressing(FIM): 3 Toilet/Commode Transfer(FIM): 4 Additional Goals: 1-Demonstrate ADL Tasks, 2-Verbalize Understanding, 3- ImproveStrength/Xochilt 1=Demonstrate adherence to instructed precautions during ADL tasks. 2=Patient will verbalize/demonstrate understanding of assistive devices/ modifications for ADL. 3=Patient will improve strength/tolerance for activity to enable patient to perform ADL's. OT Education/Plan Problem List/Assessment Pt s/p C3-4 and C6-7 ACDF; C5 Corpectomy. Pt demonstrates impaired bilateral UE strength, coordination, transfers,and ADL functioning. Pt to benefit from skilled OT intervention for ADL training, transfers, strengthening, coordination , and safety education to maximize level of function and allow safe discharge plan. Discharge Recommendations Plan/Recommendations: Continue POC Treatment Plan/Plan of Care Patient would benefit from OT for education, treatment and training to promote independence in ADL's, mobility, safety and/or upper extremity function for ADL' s. Plan of Care: ADL Retraining, Functional Mobility, UE Funct Exercise/Act, UE Neuromus Re-Ed/Coord Treatment Duration: Dec 09, 2016 Visits Per Week: 5 Agreement: Yes Rehab Potential: Fair Time/GCodes Start Time: 09:26 Stop Time: 09:55 Total Time Billed (hr/min): 29 Billed Treatment Time 1 visit, EXx2(29minutes) GEE GOMEZ OT Nov 19, 2016 10:59
--- NOTE | 2016-11-19 11:31 | Physical Therapy Daily Note ---
PT Daily Note-Current Subjective Pt sitting in recliner upon arrival. Pt reports pain of 6/10 in back. Pt agrees to PT. Pain Numeric Pain Scale: 6 Location: Dorsal Location Body Site: Back Pain Description: Ache Mental Status Patient Orientation: Person, Place, Situation Attachments: Jones Catheter, IV Transfers Functional [place] Measure 0=Not Assessed/NA 4=Minimal Assistance 1=Total Assistance 5=Supervision or Setup 2=Maximal Assistance 6=Modified [place] 3=Moderate Assistance 7=Complete IndependenceIRFPAI Quality Coding Scale 6 Independent with activity with or without an assistive device 5 Patient requires set up or clean up by helper. Patient completes activity by themselves 4 Supervision or touching assist (CGA). [place] provide cues , steadying assist 3 The helper provides less than half the effort to complete the activity 2 The helper provides more than half the effort to complete the activity 1 Dependent. The helper does all the effort to complete an activity 7 Patient refused to complete or attempt activity 9 The patient did not perform the activity before the current illness or injury 88 Not attempted due to Medical conditions or safety concerns Transfers (B, C, W/C) (FIM): 4 Scootin Sit to/from Stand: 4 Weight Bearing Weight Bearing Restriction: Full Weight Bearing Location Restriction: LE Bilateral Gait Training Gait (FIM): 4 Distance (FIM): 3=150 ft Distance: 150' Gait Level of Assist: 4 Gait Persons Needed: 1 Gait Assistive Device: FWW Pt's mariano is slow and pt fatigues easy. Pt flops in chair upon return due to fatigue. Treatments Pt transfers using FWW at CGA as well as ambulates CGA for safety and fatigues easy. Pt flops into recliner due to fatigue. Pt discusses wanting to come to ARU and what that would take. Pt will speak with Conference Center Coordinator. Pt is left in recliner with all needs met at end of tx. Assessment Current Status: Fair Progress Pt fatigues easy with ambulation. Pt is wanting to come to ARU for continued tx. Pt discussed with PT what that would mean. PT Residential Goals Residential Goals PT Residential Goals Time Frame: Nov 25, 2016 Transfers (B,C,W/C) (FIM): 3 Gait (FIM): 1 Gait distance (FIM): 1=up to 49 ft Distance: 15' Gait Level of Assist: 3 Gait Assistive Device: FWW PT Plan Problem List Problem List: Activity Tolerance, Functional Strength, Safety, Balance, Gait, Transfer Treatment/Plan Treatment Plan: Continue Plan of Care Treatment Plan: Bed Mobility, Education, Functional Activity Xochilt, Functional Strength, Gait, Safety, Therapeutic Exercise, Transfers Treatment Duration: Nov 25, 2016 Visits Per Week: 11 Safety Risks/Education Patient Education: Gait Training, Transfer Techniques, Correct Positioning, Safety Issues Teaching Recipient: Patient Teaching Methods: Discussion Response to Teaching: Verbalize Understanding Time/GCodes Time In: 825 Time Out: 848 Total Billed Treatment Time: 23 Total Billed Treatment visit, FA (10m) & GT (13m) GARCIA CEJA PTA Nov 19, 2016 11:31
--- NOTE | 2016-11-19 12:00 | Progress Note-Hospitalist ---
Progress Note HPI/CC on Admission CC: Cervical spine surgery POD # 1 HPI: This is a 71yoWM pt with hx of COPD that presents after extensive cervical spine surgery that was uncomplicated by Dr. Lee. I have reconciled all home meds and will order Duoneb TID. Patient Interview: Pt states that he did not speak with Dr. Malik yesterday. Dr. Devine informs pt that she has reconciled all home meds. Pt states that he has been using IS. Pt does not wear O2 or nivia breathing treatments at home. Pt states that he is a former smoker. Pt states that PCP is Dr. Bolanos. Pt states that he worked at the [employer] for 30 years in [place]. Physical exam stable. Pt states that he lives with his son and daughter-in- law. Pt requests pain medicine Scribed by Talib Walker under the direct supervision of Dr. Devine. Progress Notes/Assess & Plan Date Seen 11/19/16 Admission Dx/Process Assessment: Cervical spine surgery uncomplicated performed by Dr. Lee POD # 1 COPD Hypertension BPH Diagonsis/Assessment & Plan Chart Review: No fever Vitals stable BP 127/60 to 159/72 Patient Interview: Pt states that he will be staying for rehab. Pt states that his lungs feel fine. Pt is receiving breathing treatments and using IS. Pt uses a catheter all the time at home due to incontinence. Pt changes catheter once a month, and last change was 3 weeks ago. Pt does not have a leg bag. Pt cannot remember urologist, but thinks that his name is Conor. Pt reports having regular BMs. Physical exam stable. Pt has no requests at this time. AFVSS, pleasant, oriented 3, improved, up in chair Regular rate and rhythm, clear to auscultation bilaterally Assessment: Cervical spine surgery uncomplicated performed by Dr. Lee POD # 2 COPD Hypertension BPH with chronic urinary retention and neurogenic bladder requiring indwelling catheter hopefully to DC and future after cervical spine issues resolve Plan: 2nd floor rehab Pain meds Reconciled all home meds Duoneb TID Monitor BP Scribed by Talib Walker under the direct supervision of Dr. Devine. BRIJESH DEVINE DO Nov 19, 2016 11:59
[2016-11-19] MEDS: SERTRALINE 50 MG (ZOLOFT) TABLET PO SCH (15:21)
--- NOTE | 2016-11-19 16:03 | Physical Therapy Daily Note ---
PT Daily Note-Current Subjective Pt sitting in recliner upon arrival. Pt agrees to Seated Ex. Pain Numeric Pain Scale: 6 Location Body Site: Back Pain Description: Ache Mental Status Patient Orientation: Person, Place, Time, Situation Attachments: Jones Catheter Transfers Functional [place] Measure 0=Not Assessed/NA 4=Minimal Assistance 1=Total Assistance 5=Supervision or Setup 2=Maximal Assistance 6=Modified [place] 3=Moderate Assistance 7=Complete IndependenceIRFPAI Quality Coding Scale 6 Independent with activity with or without an assistive device 5 Patient requires set up or clean up by helper. Patient completes activity by themselves 4 Supervision or touching assist (CGA). [place] provide cues , steadying assist 3 The helper provides less than half the effort to complete the activity 2 The helper provides more than half the effort to complete the activity 1 Dependent. The helper does all the effort to complete an activity 7 Patient refused to complete or attempt activity 9 The patient did not perform the activity before the current illness or injury 88 Not attempted due to Medical conditions or safety concerns Exercises Seated Therapy Exercises: Ankle pumps, Long arc quads, Hip flexion, Kicking activity, Hip abd/add Seated Reps: 20 Treatments Pt completes Seated Ex in recliner. Pt is left with all needs met at end of tx. Assessment Current Status: Good Progress Pt completes Ex and informs PT that he is excited about coming to [facility] tomorrow. Pt is motivated to get better and get home. PT Halfway Goals Shoe Stitcher Odd Goals PT Shoe Stitcher Odd Goals Time Frame: Nov 25, 2016 Transfers (B,C,W/C) (FIM): 3 Gait (FIM): 1 Gait distance (FIM): 1=up to 49 ft Distance: 15' Gait Level of Assist: 3 Gait Assistive Device: FWW PT Plan Problem List Problem List: Activity Tolerance, Functional Strength, Safety, Balance, Gait, Transfer Treatment/Plan Treatment Plan: Continue Plan of Care Treatment Plan: Bed Mobility, Education, Functional Activity Xochilt, Functional Strength, Gait, Safety, Therapeutic Exercise, Transfers Treatment Duration: Nov 25, 2016 Visits Per Week: 11 Safety Risks/Education Patient Education: Transfer Techniques, Correct Positioning, Safety Issues Teaching Recipient: Patient Teaching Methods: Discussion Response to Teaching: Verbalize Understanding Time/GCodes Time In: 1445 Time Out: 1500 Total Billed Treatment Time: 15 Total Billed Treatment visit, EX (15m) GARCIA CEJA PTA Nov 19, 2016 16:03
[2016-11-19 16:13] VITALS: BP 130/63
[2016-11-19] MEDS: ALFUZOSIN HCL 10 MG TAB (UROXATRAL) PO SCH (18:46)
[2016-11-20] VITALS: BP 117/75
[2016-11-20 04:55] VITALS: BP 136/63
[2016-11-20] MEDS: MULTIVIT W/MINERALS TAB (THERAGRAN M) PO SCH (06:22)
[2016-11-20] MEDS: MAGNESIUM OXIDE (MAG-OX)400 MG TAB PO SCH (06:24)
[2016-11-20] MEDS: RT-ALBUTEROL/IPRATROPIUM 3 ML (DUONEB) VIAL INH SCH (07:20)
[2016-11-20 08:00] VITALS: BP 153/67
[2016-11-20] MEDS: NS IV 1000 ML 1,000 ML IV SCH (08:10)
[2016-11-20] MEDS ORDERED: FAMOTIDINE 20MG/2ML IV (PEPCID) ONE (10:01)
[2016-11-20] MEDS: DOCUSATE SODIUM 100 MG (COLACE) CAP PO SCH (10:06)
[2016-11-20] MEDS: FOLIC ACID 1 MG TAB PO SCH (10:06)
[2016-11-20] MEDS: THERAPEUTIC MULTIVITAMINS LIQUID 5 ML UDC PO SCH (10:06)
[2016-11-20] MEDS: FAMOTIDINE 20 MG (PEPCID) TABLET PO SCH (10:07)
[2016-11-20] MEDS: THIAMINE 100 MG (VITAMIN B-1) TAB PO SCH (10:07)
[2016-11-20] MEDS: CYANOCOBALAMIN 500 MCG TAB (VITAMIN B-12) PO SCH (10:07)
[2016-11-20] MEDS: PYRIDOXINE (VITAMIN B-6) 50 MG TABLET PO SCH (10:07)
[2016-11-20] MEDS: lisINopril 10 MG (PRINIVIL) TAB PO SCH (10:08)
--- NOTE | 2016-11-20 10:41 | Discharge Summary-Hospitalist ---
Diagnosis/Chief Complaint Date of Admission Nov 17, 2016 at 09:32 Date of Discharge Nov 20, 2016 at 10:20 Admission Diagnosis Assessment: Cervical spine surgery uncomplicated performed by Dr. Lee POD # 1 COPD Hypertension BPH Discharge Diagnosis Chart Review: No fever Vitals stable BP 127/60 to 159/72 Patient Interview: Pt states that he will be staying for rehab. Pt states that his lungs feel fine. Pt is receiving breathing treatments and using IS. Pt uses a catheter all the time at home due to incontinence. Pt changes catheter once a month, and last change was 3 weeks ago. Pt does not have a leg bag. Pt cannot remember urologist, but thinks that his name is Conor. Pt reports having regular BMs. Physical exam stable. Pt has no requests at this time. AFVSS, pleasant, oriented 3, improved, up in chair Regular rate and rhythm, clear to auscultation bilaterally Assessment: Cervical spine surgery uncomplicated performed by Dr. Lee POD # 3 COPD Hypertension BPH with chronic urinary retention and neurogenic bladder requiring indwelling catheter hopefully to DC and future after cervical spine issues resolve Postoperative crackles and rales on right lower lobe noted prior to transfer to rehabilitation presumed pneumonia considering severity of COPD Possible aspiration per patient so placed nothing by mouth and speech therapy to work on Severe debility Plan: 2nd floor rehab Pain meds Reconciled all home meds Duoneb TID Monitor BP Scribed by Talib Walker under the direct supervision of Dr. Devine. Reason Hospital Visit/Course CC: Cervical spine surgery POD # 1 HPI: This is a 71yoWM pt with hx of COPD that presents after extensive cervical spine surgery that was uncomplicated by Dr. Lee. I have reconciled all home meds and will order Duoneb TID. Patient Interview: Pt states that he did not speak with Dr. Malik yesterday. Dr. Devine informs pt that she has reconciled all home meds. Pt states that he has been using IS. Pt does not wear O2 or nivia breathing treatments at home. Pt states that he is a former smoker. Pt states that PCP is Dr. Bolanos. Pt states that he worked at the [employer] for 30 years in [place]. Physical exam stable. Pt states that he lives with his son and daughter-in- law. Pt requests pain medicine Scribed by Talib Walker under the direct supervision of Dr. Devine. Notes from 11/20/2016: Patient Interview: Pt states that he is having difficulty with swallowing. Pt is coughing up significant mucus and believes that it is due to the po medication. Physical exam reveals possible right sided pneumonia. No fever, vital signs stable, pleasant but chronically debilitated impale Regular rate and rhythm, clear to auscultation bilaterally but did note new rales and crackles in the right lower lobe but no tachypnea and he is coughing up yellow sputum No edema Plan: npo CXR Blood Cx Antibiotics Speech therapist Scribed by Talib Walker under the direct supervision of Dr. Devine. Hospital course: Patient had an uneventful hospital course after cervical spine surgery but overall chronic debility along with now acute lung issues required rehabilitation placement in close monitoring. Crackles noted on right lower lobe prior to transfer to rehabilitation so will empirically lace-on antibiotics for presumed pneumonia in addition adding on inhaled corticosteroids along with nothing by mouth status since he thinks he is aspirating his food. overall his very debilitated status will require close monitoring and close lung checks along with chest x-ray and labs today and repeat tomorrow with incentive spirometer to try to minimize risk of further lung complications. Discharge Summary Discharge Physical Examination Allergies: Coded Allergies: adhesive tape (Verified Allergy, Unknown, 11/11/16) morphine (Verified Allergy, Unknown, HIVES, 11/11/16) Vitals & I&Os Vital Signs Date Time Temp Pulse Resp B/P Pulse Ox O2 Delivery O2 Flow Rate FiO2 11/20/16 09:00 96 2.00 11/20/16 08:00 96.5 86 20 153/67 Nasal Cannula Discharge Home Medications: Active Scripts Active Reported Magnesium Oxide 420 Mg Tablet 420 Mg PO DAILY Flomax (Tamsulosin HCl) 0.4 Mg Cap 0.4 Mg PO HS Ultram (Tramadol HCl) 50 Mg Tablet 100 Mg PO TID take 2 (50mg) tabs Thiamine HCl 100 Mg Tablet 100 Mg PO DAILY Zoloft (Sertraline HCl) 50 Mg Tablet 50 Mg PO DAILY@1400 Vitamin B-6 (Pyridoxine HCl) 50 Mg Tablet 50 Mg PO DAILY Lisinopril 10 Mg Tablet 10 Mg PO DAILY Colace (Docusate Sodium) 100 Mg Capsule 100 Mg PO BID Vitamin B12 (Cyanocobalamin (Vitamin B-12)) Unknown Strength Tablet 1,000 Mcg PO DAILY Instructions to patient/family Please see electonic discharge instructions given to patient. Clinical Quality Measures DVT/VTE Risk/Contraindication: Risk Factor Score Per Nursin RFS Level Per Nursing on Admit: 4+=Very High BRIJESH DEVINE DO Nov 20, 2016 10:41
[2016-11-28] MEDS ORDERED: POTA20PA28 PO (12:35)
[2016-11-28] MEDS ORDERED: ACET325T49 PEG (12:35)
[2016-11-28] MEDS ORDERED: FAMO20TA5 PEG (12:35)
[2016-11-28] MEDS ORDERED: BACI28.4 TOP (12:35)
[2016-11-28] MEDS ORDERED: NYST15CR TP (12:35)
[2016-11-28] MEDS ORDERED: FOLI1TAB24 PEG (12:35)
== END 2016-11-20 10:20 | DRG 472 ==
LOC: 4TH 09:32 → SURG 09:33 → 4TH 14:10
PROVIDERS: ADMIT Orthopaedic Surgery Orthopaedic Surgery of the Spine; ATTEND Orthopaedic Surgery Orthopaedic Surgery of the Spine
PROC: 00NW0ZZ Release Cervical Spinal Cord, Open Approach (ICD-10-PCS; 2016-11-17)
PROC: 0RP104Z Removal of Internal Fixation Device from Cervical Vertebral Joint, Open Approach (ICD-10-PCS; 2016-11-17)
PROC: 0RH104Z Insertion of Internal Fixation Device into Cervical Vertebral Joint, Open Approach (ICD-10-PCS; 2016-11-17)
PROC: 0RG20A0 Fusion of 2 or more Cervical Vertebral Joints with Interbody Fusion Device, Anterior Approach, Anterior Column, Open Approach (ICD-10-PCS; principal; 2016-11-17 10:30)
DX: M50.021 Cervical disc disorder at C4-C5 level with myelopathy (principal); M50.022 Cervical disc disorder at C5-C6 level with myelopathy; M50.023 Cervical disc disorder at C6-C7 level with myelopathy; M47.12 Other spondylosis with myelopathy, cervical region; M48.02 Spinal stenosis, cervical region; M48.06 Spinal stenosis, lumbar region; G95.89 Other specified diseases of spinal cord; M99.51 Intervertebral disc stenosis of neural canal of cervical region; M99.31 Osseous stenosis of neural canal of cervical region; M99.61 Osseous and subluxation stenosis of intervertebral foramina of cervical region; R26.9 Unspecified abnormalities of gait and mobility; N40.1 Benign prostatic hyperplasia with lower urinary tract symptoms; R32 Unspecified urinary incontinence; J44.9 Chronic obstructive pulmonary disease, unspecified; M54.16 Radiculopathy, lumbar region; M43.17 Spondylolisthesis, lumbosacral region; I10 Essential (primary) hypertension; E78.00 Pure hypercholesterolemia, unspecified; R33.9 Retention of urine, unspecified; Z86.73 Personal history of transient ischemic attack (TIA), and cerebral infarction without residual deficits; Z87.891 Personal history of nicotine dependence
CPT/HCPCS: 72040; 87081; 94640; 94664; 94760

== ENCOUNTER 2016-11-20 10:20 | Inpatient (IN) | payer MEDICARE, OTHER ==
[~2016-11-20] VITALS: Ht 177.8 cm; Wt 64.6 kg
[~2016-11-20 10:20] MED LIST changes: +MAGN420T PO
[2016-11-20 11:00] VITALS: BP 147/75
--- OUTSIDE RECORDS SUMMARY | 2016-11-20 11:11 | XMS REPORT | Continuity of Care Document ---
Author Author [facility] Organization [facility] Address Unknown Phone Unavailable Care Team Providers Care Pick Up Driver Name Role Phone MARIANA GIBBS DO PCP Insurance Providers Payer Name Policy Number Subscriber Name Relationship s Medicare [id number] Anthony Grider 20 Self / Same As Patient [facility] [id number] Anthony Grider Self / Same As Patient Advance Directives Directive Response Recorded Date/Time Advance Directives Yes 11/17/16 10:44am Health Care Power of Warehouse Logistics Manager Yes 11/17/16 10:44am Organ Donor Yes 11/17/16 10:44am Resuscitation Status Full Code 11/17/16 10:44am Problems No problem information available. Medications Current Home Medications Medication Dose Units Route Directions Days/Qty Instructions Start Date Cyanocobalamin (Vitamin B-12) Unknown Strength 1,000 Mcg Oral Daily 11/11/16 Docusate Sodium 100 Mg 100 Mg Oral Twice A Day 11/11/16 Lisinopril 10 Mg 10 Mg Oral Daily 11/11/16 Pyridoxine Hcl 50 Mg 50 Mg Oral Daily 11/11/16 Sertraline Hcl 50 Mg 50 Mg Oral Daily@1400 11/11/16 Thiamine Hcl 100 Mg 100 Mg Oral Daily 11/11/16 Tramadol Hcl 50 Mg 100 Mg Oral Three Times A Day take 2 (50mg) tabs Tamsulosin Hcl 0.4 Mg 0.4 Mg Oral Bedtime 11/11/16 Magnesium Oxide 420 Mg 420 Mg Oral Daily 11/17/16 Social History Social History Problem Response Recorded Date/Time Alcohol Use Denies Use 11/17/2016 10:41am Recreational Drug Use No 11/17/2016 10:41am Recent Foreign Travel No 11/17/2016 10:38am Recent Infectious Disease Exposure No 11/17/2016 10:38am Smoking Status Former Smoker 11/17/2016 10:44am Type Used Cigarettes 11/17/2016 10:44am Recent Hopitalizations No 11/17/2016 10:41am Query Response Start Date Stop Date Smoking Status Former Smoker Hospital Discharge Instructions No hospital discharge instructions. Plan of Care Discharge Date 11/20/16 10:20am Disposition 09 ADMITTED INPATIENT Prescriptions See Medication Section Functional Status Query Response Date Recorded Patient Orientation Person Place Time Situation November 19, 2016 4:03pm Patient Orientation Person Place Time Situation Eyes Open November 20, 2016 10:37am Comprehension Ability Understands Concepts November 20, 2016 9:00am Allergies, Adverse Reactions, Alerts Allergen Type Severity Reaction Status Last Updated Morphine Allergy Unknown HIVES Active 11/11/16 adhesive tape Allergy Unknown Active 11/11/16 Immunizations No immunization records. Vital Signs Acute Vital Signs Vital Response Date/Time Temperature (Fahrenheit) 96.5 degrees F (97.6 - 99.5) 11/20/2016 8:00am Temperature (Calculated Celsius) 35.58322 degrees C (36.4 - 37.5) 11/20/2016 8:00am Temperature Source Tympanic 11/20/2016 8:00am Pulse Rate (adult) 86 bpm (60 - 90) 11/20/2016 8:00am Respiratory Rate 20 bpm (12 - 24) 11/20/2016 8:00am O2 Sat by Pulse Oximetry 96 % (88 - 100) 11/20/2016 9:00am Blood Pressure 153/67 mm Hg 11/20/2016 8:00am Blood Pressure Mean 95 mm Hg 11/20/2016 8:00am Pain Numeric Pain Scale 3 11/20/2016 8:00am Pain Numeric Pain Scale 6 11/20/2016 8:00am Height (Feet) 5 feet 11/17/2016 10:38am Height (Inches) 10.00 inches 11/17/2016 10:38am Height (Calculated Centimeters) 177.153928 cm 11/17/2016 10:38am Weight (Pounds) 145 pounds 11/17/2016 10:38am Weight (Ounces) 0.0 oz 11/17/2016 10:38am Weight (Calculated Grams) 33299.89 gm 11/17/2016 10:38am Weight (Calculated Kilograms) 65.291587 kilograms 11/17/2016 10:38am Calculated BMI 20.8 11/17/2016 10:38am Results Laboratory Results Test Name Result Units [...] No growth 10/23/2016 3:50pm 10/24/2016 8: 57am Pending Microbiology Results Procedure Source Collection Date/Time Procedures Procedure Status Date Provider(s) ASPIRATE PLEURA W/ IMAGING Completed 10/23/16 SANIYA JESUS MD Anterior cervical discectomy with fusion Completed 11/17/16 JUDY MERLOS MD Encounters Encounter Location Arrival/Admit Date Discharge/Depart Date Attending Provider Discharged Inpatient [facility] 11/17/16 9:32am 10:20am JUDY MERLOS MD Departed Clinic [facility] 11/11/16 9:55am 11/11/16 10: 35am JUDY MERLOS MD Registered Clinic [facility] 10/30/16 9:39am VIDAL TOMLINSON DO Registered Clinic [facility] 10/23/16 2:59pm VIDAL TOMLINSON DO
--- NOTE | 2016-11-20 11:45 | ST Dysphagia Evaluation ---
Speech Evaluation-General Medical Diagnosis s/p Cervical Spine Surgery Onset Date: Nov 17, 2016 Therapy Diagnosis Therapy Diagnosis: Severe Pharyngeal Dysphagia/Odynophagia Precautions Precautions: Aspiration Referral Referring Physician: Dr. Seymour Rivas Reason for Referral: Evaluation/Treatment Clinical Bedside Swallowing Evaluation Medical History Pertinent Medical History: Arthritis, COPD, CVA, HTN Reviewed History: Yes Speech PLF/Current-Dysphagia Prior Level of Function The patient denied swallowing challenges with regular consistencies and thin liquids prior to his cervical surgery on 11/17/16. Additionally, the patient denied voice difficulties prior to admission. Subjective The patient was recently admitted to [facility] following a cervical spine procedure/surgery on 11/17/2016. Per patient, he has been "coughing and choking" on all consistencies (thin liquid, puree, solids, and medications) since his procedure on Thursday (11/17/2016). The patient reported he intermittently coughs up medications "hours" after attempting to swallow them. The patient has a c-collar in place. The patient greeted the clinician appropriately and agreed to participate in the dysphagia evaluation. To note: The patient demonstrates diplophonia. Per patient, his voice has been weak since surgery. Due to this report, the clinician has recommended a consult to Otolaryngology for evaluation of the vocal cords. Cognitive Status Patient Orientation: Person, Place, Time, Situation Oral Motor Skills Dentition: Natural Current Food Consistancy: Regular, Thin Liquids Ability to Follow Directions: Excellent Oral Expression Ability: No Impairment Voice Voice Phonatory-Based Quality: Breathy, Weak, Phonation Breaks Voice Pitch: Normal Voice Loudness: Moderately Soft/Quiet Face Facial Symmetry: Symmetrical Oral-Facial Assessment Oral-Facial Dentition: Normal Labial Seal Description: Normal Smile: Normal Puff Cheeks: Normal Lingual Protrusion: Normal Lingual ROM: Normal Lingual Strength: Normal Pharynx Velopharyngeal Move.: Normal Volitional Dry Swallow: Yes (Odynophagia reported.) Dysphagia Evaluation Consistencies Presented: Thin Liquid, Honey Thick Liquid, Pureed 1. No oral impairments were noted throughout the evaluation. Pharyngeal Phase: Multiple Swallow Attempts, Clears Throat, C/O Globus Sensation 1. The patient grimaced and reported odynophagia upon all swallowing. The patient demonstrated multiple (three) swallows per bolus (thin, honey-thick, puree), as well as, throat clearing and coughing. Funct. Velo/Pharyngeal Symptom: Clears Throat, Cough After Swallow, Wet Voice 1. Thin liquid (via teaspoon), honey-thick liquid (via teaspoon), puree: The patient demonstrated immediate throat clearing, coughing, and a "wet" vocal quality following all boluses provided. Dietary Recommendations: NPO Liquid Recommendations: NPO The patient should remain NPO pending the results of a video swallow. The video swallow is scheduled for 11/21/16 at 9:30. Dysphagia Evaluation Summary The patient demonstrated severe pharyngeal dysphagia characterized by multiple swallow attempts per bolus, odynophagia, and reduced airway protection in the presence of bolus material. Speech Short Term Goals Short Term Goals Short Term Goals 1. The patient will participate in a modified barium swallow to definitively rule out aspiration with all consistencies tested. Time Frame-STG: Three Days Speech Penitentiary Goals Grade Setter Goals 1. The patient will tolerate the least restrictive diet without signs/symptoms of aspiration or laryngeal penetration. Time Frame: Three Weeks Speech-Plan Treatment Plan Speech Therapy Treatment Plan: Continue Plan of Care Skilled speech services to target severe pharyngeal dysphagia. Treatment Duration: Dec 11, 2016 # of days/week Five. Visits Per Week: Five. Minutes/Day (M-F): 30 Rehab Potential: Fair Safety Risks/Education Teaching Recipient: Patient Teaching Methods: Discussion Response to Teaching: Verbalize Understanding Education Topics Provided: Results, Recommendations Time Speech Therapy Time In: 10:20 Speech Therapy Time Out: 10:35 Total Billed Time: 15 Billed Treatment Time 1 GORDON SEQUEIRA Nov 20, 2016 11:45
--- NOTE | 2016-11-20 11:55 | ST Cognitive Linguistic Eval ---
Speech Evaluation-General Medical Diagnosis s/p Cervical Spine Surgery Onset Date: Nov 17, 2016 Therapy Diagnosis Therapy Diagnosis: Cognitive Linguistic Skills WNL Precautions Precautions: Aspiration Referral Referring Physician: Dr. Seymour Rivas Reason for Referral: Evaluation/Treatment Cognitive Screen Medical History Pertinent Medical History: Arthritis, COPD, CVA, HTN Reviewed History: Yes Speech PLF-Current Status Prior Level of Function The patient denied cognitive or linguistic challenges prior to admission. Subjective The patient was recently admitted to [facility] following a cervical spinal procedure. The patient greeted the clinician appropriately and agreed to participate in the cognitive screen on this date. Language Eval: Auditory Comprehends Simple Yes/No Ques: Functional Indent/Objects Multiple [place]: Functional Ident/Pics in Multiple [place]: Functional Follows 1-Step Commands: Functional Follows Complex Directions: Functional Follows General Conversations: Functional Language Eval: Verbal Language Completes Spontaneous Greeting: Functional Produces Auto, Serial Info: Functional Imitates Simple Words/Phrases: Functional Word Finding: Functional Requests Basic Needs: Functional States Basic Personal Info: Functional Expresses Complex Ideas: Functional Cognitive Patient Orientation The patient was oriented to month, date, year, day of week, and location ( independently). Objective Cognitive Domain Attention: WNL Memory: WNL Problem Solving: Functional Executive Functions: WNL Objective Impression The patient demonstrated cognitive linguistic skills grossly within functional limits for completion of ADL's. Communication/Social Cognition Comprehension: 6 Expression: 6 Social Interaction: 6 Problem Solvin Memory: 6 Speech Patient Assess Expression of Ideas/Wants: Expression (4) Understanding [place] Content: Understands (4) Brief Interview-Mental Status: Yes Repetition of Three Words: Three (3) Temporal Orientation: Year: Correct (3) Temporal Orientation: Month: Accurate within 5 days(2) Temporal Orientation: Day: Correct (1) Recall : Wear to say "Sock": Yes, no cue required (2) Recall : Color: Yes, no cue required (2) Recall : Bed: Yes, no cue required (2) Speech Short Term Goals Short Term Goals Short Term Goals 1. The patient will participate in a modified barium swallow to definitively rule out aspiration with all consistencies tested. Time Frame-STG: Three Days Speech Alf Goals Quality Control Analyst Goals 1. The patient will tolerate the least restrictive diet without signs/symptoms of aspiration or laryngeal penetration. Time Frame: Three Weeks Speech-Plan Treatment Plan Speech Therapy Treatment Plan: Discontinue ST Discontinue ST for cognition, only. Continue skilled services for dysphagia. Treatment Duration: Dec 11, 2016 Rehab Potential: Fair Safety Risks/Education Teaching Recipient: Patient Teaching Methods: Discussion Response to Teaching: Verbalize Understanding Education Topics Provided: Plan of Care Time Speech Therapy Time In: 10:35 Speech Therapy Time Out: 10:50 Total Billed Time: 15 Billed Treatment Time 1, GORDON KURTZ Nov 20, 2016 11:55
[2016-11-20] MEDS: NS IV 1000 ML 1,000 ML IV SCH (12:00)
[2016-11-20] MEDS ORDERED: PIPERACILLIN SODIUM/TAZOBACTAM 4.5 GM in NS (IVPB) 100 ML IV SCH (12:00)
[2016-11-20] MEDS ORDERED: NITROGLYCERIN 2% OINT 1 GM UNIT DOSE PACKET TOP PRN (12:00)
[2016-11-20 12:40] LABS: BASOPHILS % (AUTO) 0 % (0-10); EOSINOPHILS # (AUTO) 0.1 10^3/uL (0.0-0.3); EOSINOPHILS % (AUTO) 1 % (0-10); LYMPHOCYTES # (AUTO) 1.2 X 10^3 (1.0-4.0); LYMPHOCYTES % (AUTO) 12 % (12-44); MEAN CORPUSCULAR HEMOGLOBIN 29 PG (25-34); MEAN CORPUSCULAR HGB CONC 32 G/DL (32-36); MEAN CORPUSCULAR VOLUME 89 FL (80-99); MEAN PLATELET VOLUME 10.3 FL (7.4-10.4); MONOCYTES % (AUTO) 10 % (0-12); NEUTROPHILS # (AUTO) 7.9 X 10^3 (1.8-7.8); NEUTROPHILS % (AUTO) 77 % (42-75); PLATELET COUNT 203 10^3/uL (130-400); RED BLOOD COUNT 3.26 10^6/uL (4.35-5.85); RED CELL DISTRIBUTION WIDTH 15.1 % (10.0-14.5); WHITE BLOOD COUNT 10.3 10^3/uL (4.3-11.0)
[2016-11-20 13:02] LABS: ALANINE AMINOTRANSFERASE 20 U/L (0-55); ALBUMIN 3.3 G/DL (3.2-4.5); ANION GAP 11 MMOL/L (5-14); ASPARTATE AMINO TRANSFERASE 21 U/L (5-34); BILIRUBIN,TOTAL 0.7 MG/DL (0.1-1.0); BLOOD UREA NITROGEN 7 MG/DL (7-18); BUN/CREATININE RATIO 13; CALCIUM 8.6 MG/DL (8.5-10.1); CARBON DIOXIDE 24 MMOL/L (21-32); CHLORIDE 103 MMOL/L (98-107); CREATININE SERUM 0.53 MG/DL (0.60-1.30); GFR ESTIMATED > 60; GLUCOSE 91 MG/DL (70-105); POTASSIUM 3.9 MMOL/L (3.6-5.0); SODIUM 138 MMOL/L (135-145)
--- NOTE | 2016-11-20 13:50 | Physical Therapy Evaluation ---
PT Evaluation-General Medical Diagnosis Admission Date Nov 20, 2016 at 10:20 Medical Diagnosis: s/p Cervical Spine Surgery Onset Date: Nov 17, 2016 Therapy Diagnosis Therapy Diagnosis: general debility Height/Weight Height (Feet): 5 Height (Inches): 10.00 Weight (Pounds): 145 Weight (Ounces): 0.0 Weight Bear Status Location Restriction: LE Bilateral Referral Physician: Rob Reason for Referral: Evaluation/Treatment Medical History Pertinent Medical History: Arthritis, COPD, CVA, HTN Additional Medical History multiple back surgeries Current History transfer to ARU Reviewed History: Yes Social History Home: Single Level Current Living Status: Spouse Entry Into Home: Ramp Prior/Core FIM Prior Level of Function Functional [place] Measure 0=Not Assessed/NA 4=Minimal Assistance 1=Total Assistance 5=Supervision or Setup 2=Maximal Assistance 6=Modified Bryan 3=Moderate Assistance 7=Complete Bryan Bed Mobility: 4 Transfers (B,C,W/C) (FIM): 3 Gait: 1 Wheelchair Mobility: 4 Patient has been limited with mobility secondary to CVA and multiple back surgeries PT Evaluation-Current Subjective Patient is very agreeable to participate with PT. Pain Numeric Pain Scale: 0-No Pain Location: No Pain Reported Objective Patient Orientation: Normal For Age Problem Solving: Fair Attachments: Jones Catheter, IV ROM/Strength ROM Lower Extremities bilateral LE WFL Strenght Lower Extremities right knee flexion/extension 3-/5; hip flexion 2/5; ankle dorsi/plantarflexion 2 -/5 left knee flexion/extension 3/5; hip flexion 3/5; ankle dorsi/plantarflexion 3/5 Integumentary/Posture Integumentary refer to nursing notes Bowel Incontinence: Yes Bladder Incontinence: Jones Cath Posture flexed hip posture Neuromuscular (Tone, Coordination, Reflexes) extremely diminished tone, coordination and reflexes Sensory Vision: diminished peripherial vision right and left Hearing: Impaired Sensation Right Lower Extremit: Impaired Sensation Left Lower Extremity: Impaired Transfers Functional Bryan Measure 0=Not Assessed/NA 4=Minimal Assistance 1=Total Assistance 5=Supervision or Setup 2=Maximal Assistance 6=Modified Bryan 3=Moderate Assistance 7=Complete IndependenceIRFPAI Quality Coding Scale 6 Independent with activity with or without an assistive device 5 Patient requires set up or clean up by helper. Patient completes activity by themselves 4 Supervision or touching assist (CGA). [place] provide cues , steadying assist 3 The helper provides less than half the effort to complete the activity 2 The helper provides more than half the effort to complete the activity 1 Dependent. The helper does all the effort to complete an activity 7 Patient refused to complete or attempt activity 9 The patient did not perform the activity before the current illness or injury 88 Not attempted due to Medical conditions or safety concerns Transfers (B, C, W/C) (FIM): 4 Scootin Rollin Roll Left to Right (QC): 3 Supine to/from Sit: 4 Sit to/from Stand: 4 bed t/f WC(FIM only if WC use): 4 Sit to Lying (QC): 3 Lying to Sitting/Side of Bed(Q: 3 Sit to Stand (QC): 3 Chair/Eco-jr-Dvluw Xfer(QC): 3 Car Transfer (QC): 3 patient requires assistance for right LE and for safety Gait Does the Patient Walk?: Yes Mode of Locomotion: Both Anticipated Mode of Locomotion: Both Gait (FIM): 4 Distance (FIM): 3=150 ft Walk 10 feet (QC): 4 Walk 50 ft with 2 Turns(QC): 4 Walk 150 ft (QC): 4 Walking 10ft/uneven surface-QC: 4 Distance: 150' x 1; 50' x 1 Gait Level of Assist: 4 Gait Persons Needed: 1 Gait Assistive Device: FWW Comments/Gait Description noted right LE lag and terminal extension with decrease mariano and step length Wheelchair Training Does the Pt Use a Wheelchair?: Yes NT Stairs Stairs (FIM): 1 #of Steps: 1 Level of Assist: 3 1 Step (curb) (QC): 3 4 Steps (QC): 9 Assistive Device: Walker 12 Steps (QC): 9 Balance Sitting Static: Normal Sitting Dynamic: Normal Standing Static: Fair Standing Dynamic: Fair Assessment/Needs 71 y.o. male, will benefit from skilled PT to address functional strength and mobility to improve current LOF and to safely return to home at maximum LOF with family. Rehab Potential: Fair Post Rehab Potential-Barriers: multiple vertebral surgeries PT Short Term Goals Short Term Goals Time Frame: Dec 04, 2016 Transfers (B,C,W/C) (FIM): 5 Gait (FIM): 5 Distance (FIM): 3=150 ft Gait Distance Comment: 150' Gait Level of Assist: 5 Gait Assistive Device: FWW PT Chcf Goals Staff Command And Control Officer Goals PT Staff Command And Control Officer Goals Time Frame: Dec 18, 2016 Transfers (B,C,W/C) (FIM): 6 Sit to Lying (QC): 5 Lying-Sitting on Side/Bed(QC): 5 Sit to Stand (QC): 5 Rollin Roll Left to Right (QC): 5 Chair/Lxd-gt-Ogxsm Xfer(QC): 5 Car Transfer (QC): 5 Does the Patient Walk: Yes Gait (FIM): 6 Gait distance (FIM): 3=150 ft Distance: 150' Walk 10 feet (QC): 5 Walk 10ft-Uneven Surface(QC): 5 Walk 50ft with 2 Turns (QC): 5 Walk 150 ft (QC): 5 Gait Level of Assist: 6 Gait Assistive Device: FWW Stairs (FIM): 2 # of Steps: 4 1 Step (curb) (QC): 5 4 Steps (QC): 5 12 Steps (QC): 9 Stairs Level Of Assist: 5 Picking up an Object (QC): 5 PT Plan Problem List Problem List: Activity Tolerance, Functional Strength, Balance, Gait, Transfer Treatment/Plan Treatment Plan: Continue Plan of Care Treatment Plan: Bed Mobility, Education, Functional Activity [place], Functional Strength, Group Therapy, Gait, Safety, Therapeutic Exercise, Transfers Treatment Duration: Dec 18, 2016 # of days/week 5-6 Minutes/Day (M-F): 60-90 Minutes/Day (Sat/[place]): PRN Pt/Family Agrees w/Plan: Yes Safety Risks/Education Patient Education: Gait Training, Transfer Techniques, Safety Issues Teaching Recipient: Patient Teaching Methods: Demonstration, Discussion Response to Teaching: Verbalize Understanding, Return Demonstration Discharge Recommendations Therapy D/C Recommendations: Home w/ Family Support, Physical Therapy Home Care Time/GCodes Time In: 1010 Time Out: 1020 Total Billed Treatment Time: 10 Total Billed Treatment 1 visit EVModC 10 min GALLITO WOODARD PT Nov 20, 2016 13:50
[2016-11-20] MEDS: SERTRALINE 50 MG (ZOLOFT) TABLET PO SCH (13:58)
--- NOTE | 2016-11-20 13:59 | Physical Therapy Daily Note ---
PT Daily Note-Current Subjective Patient agrees to PT. Pain Numeric Pain Scale: 0-No Pain Location: No Pain Reported Mental Status Patient Orientation: Normal For Age Attachments: Jones Catheter, IV Transfers Functional [place] Measure 0=Not Assessed/NA 4=Minimal Assistance 1=Total Assistance 5=Supervision or Setup 2=Maximal Assistance 6=Modified [place] 3=Moderate Assistance 7=Complete IndependenceIRFPAI Quality Coding Scale 6 Independent with activity with or without an assistive device 5 Patient requires set up or clean up by helper. Patient completes activity by themselves 4 Supervision or touching assist (CGA). [place] provide cues , steadying assist 3 The helper provides less than half the effort to complete the activity 2 The helper provides more than half the effort to complete the activity 1 Dependent. The helper does all the effort to complete an activity 7 Patient refused to complete or attempt activity 9 The patient did not perform the activity before the current illness or injury 88 Not attempted due to Medical conditions or safety concerns Transfers (B, C, W/C) (FIM): 4 Scootin Sit to/from Stand: 4 Sit to Stand (QC): 4 Car Transfer (QC): 4 assist with right LE on simulated car transfer Gait Training Does the Patient Walk?: Yes Gait (FIM): 4 Distance (FIM): 3=150 ft Distance: 150' x 2 Gait Level of Assist: 4 Gait Persons Needed: 1 Gait Assistive Device: FWW right LE lag and demonstration of terminal extension Exercises NuStep Minutes: 15 NuStep Workload: 3 Treatments NuStep to address functional strength to improve current LOF. Assessment Patient is progressing with treatment and is highly motivate with treatment plan. PT Short Term Goals Short Term Goals Time Frame: Dec 04, 2016 Transfers (B,C,W/C) (FIM): 5 Gait (FIM): 5 Distance (FIM): 3=150 ft Gait Distance Comment: 150' Gait Level of Assist: 5 Gait Assistive Device: FWW PT Prison Goals Prison Goals PT Tabulating Machine Mechanic Goals Time Frame: Dec 18, 2016 Transfers (B,C,W/C) (FIM): 6 Sit to Lying (QC): 5 Lying-Sitting on Side/Bed(QC): 5 Sit to Stand (QC): 5 Rollin Roll Left to Right (QC): 5 Chair/Gfd-xe-Wkfkc Xfer(QC): 5 Car Transfer (QC): 5 Does the Patient Walk: Yes Gait (FIM): 6 Gait distance (FIM): 3=150 ft Distance: 150' Walk 10 feet (QC): 5 Walk 10ft-Uneven Surface(QC): 5 Walk 50ft with 2 Turns (QC): 5 Walk 150 ft (QC): 5 Gait Level of Assist: 6 Gait Assistive Device: FWW Stairs (FIM): 2 # of Steps: 4 1 Step (curb) (QC): 5 4 Steps (QC): 5 12 Steps (QC): 9 Stairs Level Of Assist: 5 Picking up an Object (QC): 5 PT Plan Treatment/Plan Treatment Plan: Continue Plan of Care Treatment Plan: Bed Mobility, Education, Functional Activity Xochilt, Functional Strength, Group Therapy, Gait, Safety, Therapeutic Exercise, Transfers Treatment Duration: Dec 18, 2016 Minutes/Day (M-F): 60-90 Minutes/Day (Sat/Lucero): PRN Time/GCodes Time In: 1135 Time Out: 1210 Total Billed Treatment Time: 35 Total Billed Treatment 1 visit GT 20 min EX 15 min GALLITO WOODARD PT Nov 20, 2016 13:59
[2016-11-20] MEDS ORDERED: PIPERACILLIN SODIUM/TAZOBACTAM 4.5 GM in NS (IVPB) 100 ML IV NR (14:00)
--- NOTE | 2016-11-20 14:04 | Occupational Therapy Eval ---
OT Evaluation-General/PLF Medical Diagnosis Admission Date Nov 20, 2016 at 10:20 Medical Diagnosis: s/p Cervical Spine Surgery Onset Date: Nov 17, 2016 Therapy Diagnosis Therapy Diagnosis: Impaired self care skills Height/Weight Height (Feet): 5 Height (Inches): 10.00 Weight (Pounds): 145 Weight (Ounces): 0.0 Weight Bear Status Location Restriction: LE Bilateral Referral Physician: Rob Medical History Pertinent Medical History: Arthritis, COPD, CVA, HTN Additional Medical History High cholesterol, neuropathy, chronic back pain, cervical and lumbar surgery Current History pt s/p C3-4 and C6-7 ACDF and C5 corpectomy Reviewed History: Yes Social History Home: Single Level Current Living Status: Spouse Entry Into Home: Ramp ADL-Prior Level of Function ADL PLOF Comments Pt recently spent 3 weeks in SNF. Had been home for ~1.5 weeks prior to surgery. Pt states he was assisted with all ADLs and transfers. Was getting home therapy. Pt states he has been non-ambulatory for several months. DME/Equipment: Bath Chair, Bedside Commode, Shower, Toilet/Riser DME/Equipment Comments FWW, manual w/c, hospital bed OT Current Status Subjective Pt agreeable to therapy this am. Pt reports 6/10 pain in lumbar area. Mental Status/Objective Patient Orientation: Person, Place, Situation Attachments: Jones Catheter, IV Current Glasses/Contacts: Yes Hearing Aids: No Dentures/Partials: Yes (upper) Hand Dominance: Right (Naturally right handed, but has been using left hand secondary to right side weakness/decreased coordination) Upper Extremity ROM Pt's ROM is grossly functional Upper Extremity Coordination Impaired bilateral UE Right >Left Upper Extremity Sensation Impaired bilateral UE Upper Extremity Strength Pt has impaired strength bilateral UE ADL-Treatment ADL-Current Pt participated in UE assessment while seated in chair. Unable to assess feeding as pt is currently NPO. Sit to stand with minimal assistance. Gait to restroom with FWW. Pt has slow pace and requires cues for safety. Pt stood at sink to brush hair. Pt has decreased balance, leans forward, requires assist to correct. Minimal assistance required to comb back of head. Pt washed face with set up. Pt used mouth swab to complete oral care with SBA. Pt demonstrated ability to perform transfer to [facility] over toilet with minimal assistance. Pt in restroom with PT and RN present after session. Functional [place] Measure 0=Not Assessed/NA 4=Minimal Assistance 1=Total Assistance 5=Supervision or Setup 2=Maximal Assistance 6=Modified [place] 3=Moderate Assistance 7=Complete IndependenceIRFPAI Quality Coding Scale 6 Independent with activity with or without an assistive device 5 Patient requires set up or clean up by helper. Patient completes activity by themselves 4 Supervision or touching assist (CGA). [place] provide cues , steadying assist 3 The helper provides less than half the effort to complete the activity 2 The helper provides more than half the effort to complete the activity 1 Dependent. The helper does all the effort to complete an activity 7 Patient refused to complete or attempt activity 9 The patient did not perform the activity before the current illness or injury 88 Not attempted due to Medical conditions or safety concerns Grooming (FIM): 4 Oral Hygiene (QC): 5 Toilet/Commode Transfer (FIM): 4 Education OT Patient Education: Rehab process Teaching Recipient: Patient Teaching Methods: Discussion Response to Teaching: Verbalize Understanding OT Short Term Goals Short Term Goals Time Frame: Dec 04, 2016 Grooming(FIM): 5 Bathing(FIM): 4 Upper Body Dressing(FIM): 5 Lower Body Dressing(FIM): 4 Toileting(FIM): 3 Toilet/Commode Transfer(FIM): 5 Shower Transfer(FIM): 4 Additional Short Term Goals: 1-Demonstrate ADL Tasks, 2-Verbalize Understanding , 3-ImproveStrength/Xochilt 1=Demonstrate adherence to instructed precautions during ADL tasks. 2=Patient will verbalize/demonstrate understanding of assistive devices/ modifications for ADL. 3=Patient will improve strength/tolerance for activity to enable patient to perform ADL's. OT Penitentiary Goals Field Service Engineer Goals Time Frame: Dec 18, 2016 Eating (FIM): 6 Eating (QC): 6 Groomin Oral Hygiene (QC): 6 Bathing(FIM): 5 Shower/Bathe Self (QC): 4 Upper Body Dressing(FIM): 5 Upper Body Dressing (QC): 5 Lower Body Dressing(FIM): 5 Lower Body Dressing (QC): 5 On/Off Footwear (QC): 5 Toileting(FIM): 6 Toileting Hygiene (QC): 6 Toilet/Commode Transfer(FIM): 6 Shower Transfer(FIM): 5 Additional Goals: 1-Demonstrate ADL Tasks, 2-Verbalize Understanding, 3- ImproveStrength/Xochilt 1=Demonstrate adherence to instructed precautions during ADL tasks. 2=Patient will verbalize/demonstrate understanding of assistive devices/ modifications for ADL. 3=Patient will improve strength/tolerance for activity to enable patient to perform ADL's. Goals established to improve functional independence and allow safe discharge plan. OT Education/Plan Problem List/Assessment Assessment: Decreased Activ Tolerance, Decreased UE Strength, Dependent Transfers, Impaired Coordination, Impaired Funct Balance, Impaired I ADL's, Impaired Self-Care Skills Pt s/p cervical surgery with impaired mobility, strength, coordination, ADL functioning, and balance. Pt to benefit from skilled OT intervention for ADL training, transfers, strengthening, adaptive equipment education as needed, and home safety education to maximize level of function and allow safe discharge plan. Discharge Recommendations Plan/Recommendations: Continue POC Treatment Plan/Plan of Care Treatment,Training & Education: Yes Patient would benefit from OT for education, treatment and training to promote independence in ADL's, mobility, safety and/or upper extremity function for ADL' s. Plan of Care: ADL Retraining, Functional Mobility, Group Exercise/Act as Ind, UE Funct Exercise/Act, UE Neuromus Re-Ed/Coord Treatment Duration: Dec 18, 2016 # of days/week 5-6 Minutes/Day (M-F): 60-90 Minutes/Day (Sat/Lucero): PRN Agreement: Yes Rehab Potential: Fair Time/GCodes Start Time: 10:50 Stop Time: 11:35 Total Time Billed (hr/min): 45 Billed Treatment Time 1 visit, EVM(15minutes), ADLx2(30minutes) GEE GOMEZ OT Nov 20, 2016 14:04
--- NOTE | 2016-11-20 14:18 | Occupational Ther Daily Note ---
OT Current Status-Daily Note Subjective Pt sitting in chair, agrees to treatment. Mental Status/Objective Functional [place] Measure 0=Not Assessed/NA 4=Minimal Assistance 1=Total Assistance 5=Supervision or Setup 2=Maximal Assistance 6=Modified [place] 3=Moderate Assistance 7=Complete [place] ADL-Treatment Pt requests to use restroom. Pt sit to stand with minimal assistance. Gait to restroom with FWW, cues for safety. Transfer to [facility] over toilet with minimal assistance. Pt requires assist for all toileting tasks. Transfer to chair with minimal assistance. Pt completed seated sponge bath. Pt able to wash bilateral UE, chest, abdomen, and jul[place] area. Assist required for all other areas. Pt has decreased coordination and requires increased time for bathing. Don pullover shirt with minimal assistance to chain puller head. Pt requires maximal assistance for LE dressing. Pt able to doff socks, but requires assist to don socks. Pt sitting in chair with needs met after session. Functional [place] Measure 0=Not Assessed/NA 4=Minimal Assistance 1=Total Assistance 5=Supervision or Setup 2=Maximal Assistance 6=Modified [place] 3=Moderate Assistance 7=Complete IndependenceIRFPAI Quality Coding Scale 6 Independent with activity with or without an assistive device 5 Patient requires set up or clean up by helper. Patient completes activity by themselves 4 Supervision or touching assist (CGA). [place] provide cues , steadying assist 3 The helper provides less than half the effort to complete the activity 2 The helper provides more than half the effort to complete the activity 1 Dependent. The helper does all the effort to complete an activity 7 Patient refused to complete or attempt activity 9 The patient did not perform the activity before the current illness or injury 88 Not attempted due to Medical conditions or safety concerns Bathing (FIM): 3 Bathing Location: L Arm, R Arm, Chest, Abdomen, Perineal Area Shower/Bathe Self (QC): 3 Upper Body (FIM): 4 Upper Body Dressing (QC): 3 Lower Body Dressing (FIM): 2 Lower Body Dressing (QC): 2 On/Off Footwear (QC): 2 Toileting (FIM): 1 Toileting Hygiene (QC): 1 Toilet/Commode Transfer (FIM): 4 Toilet Transfer (QC): 3 OT Short Term Goals Short Term Goals Time Frame: Dec 04, 2016 Grooming(FIM): 5 Bathing(FIM): 4 Upper Body Dressing(FIM): 5 Lower Body Dressing(FIM): 4 Toileting(FIM): 3 Toilet/Commode Transfer(FIM): 5 Shower Transfer(FIM): 4 Additional Short Term Goals: 1-Demonstrate ADL Tasks, 2-Verbalize Understanding , 3-ImproveStrength/Xochilt 1=Demonstrate adherence to instructed precautions during ADL tasks. 2=Patient will verbalize/demonstrate understanding of assistive devices/ modifications for ADL. 3=Patient will improve strength/tolerance for activity to enable patient to perform ADL's. OT Nursing Home Goals Human Resources Leader Goals Time Frame: Dec 18, 2016 Eating (FIM): 6 Eating (QC): 6 Groomin Oral Hygiene (QC): 6 Bathing(FIM): 5 Shower/Bathe Self (QC): 4 Upper Body Dressing(FIM): 5 Upper Body Dressing (QC): 5 Lower Body Dressing(FIM): 5 Lower Body Dressing (QC): 5 On/Off Footwear (QC): 5 Toileting(FIM): 6 Toileting Hygiene (QC): 6 Toilet/Commode Transfer(FIM): 6 Shower Transfer(FIM): 5 Additional Goals: 1-Demonstrate ADL Tasks, 2-Verbalize Understanding, 3- ImproveStrength/Xochilt 1=Demonstrate adherence to instructed precautions during ADL tasks. 2=Patient will verbalize/demonstrate understanding of assistive devices/ modifications for ADL. 3=Patient will improve strength/tolerance for activity to enable patient to perform ADL's. OT Education/Plan Discharge Recommendations Plan/Recommendations: Continue POC Treatment Plan/Plan of Care Patient would benefit from OT for education, treatment and training to promote independence in ADL's, mobility, safety and/or upper extremity function for ADL' s. Plan of Care: ADL Retraining, Functional Mobility, Group Exercise/Act as Ind, UE Funct Exercise/Act, UE Neuromus Re-Ed/Coord Treatment Duration: Dec 18, 2016 Minutes/Day (M-F): 60-90 Minutes/Day (Sat/Lucero): PRN Agreement: Yes Rehab Potential: Fair Time/GCodes Start Time: 13:00 Stop Time: 13:40 Total Time Billed (hr/min): 40 Billed Treatment Time 1 visit, ADLx3(40minutes) GEE GOMEZ OT Nov 20, 2016 14:18
--- NOTE | 2016-11-20 14:36 | Physical Therapy Daily Note ---
PT Daily Note-Current Subjective Patient agrees to PT. No c/o at this time. Pain Numeric Pain Scale: 0-No Pain Location: No Pain Reported Mental Status Patient Orientation: Normal For Age Attachments: Jones Catheter Transfers Functional [place] Measure 0=Not Assessed/NA 4=Minimal Assistance 1=Total Assistance 5=Supervision or Setup 2=Maximal Assistance 6=Modified [place] 3=Moderate Assistance 7=Complete IndependenceIRFPAI Quality Coding Scale 6 Independent with activity with or without an assistive device 5 Patient requires set up or clean up by helper. Patient completes activity by themselves 4 Supervision or touching assist (CGA). [place] provide cues , steadying assist 3 The helper provides less than half the effort to complete the activity 2 The helper provides more than half the effort to complete the activity 1 Dependent. The helper does all the effort to complete an activity 7 Patient refused to complete or attempt activity 9 The patient did not perform the activity before the current illness or injury 88 Not attempted due to Medical conditions or safety concerns Transfers (B, C, W/C) (FIM): 4 Scootin Sit to/from Stand: 4 Sit to Stand (QC): 4 minimal assist from low seat Gait Training Does the Patient Walk?: Yes Gait (FIM): 4 Distance (FIM): 3=150 ft Distance: 300' x 2; 100' x 2 Gait Level of Assist: 4 Gait Persons Needed: 1 Gait Assistive Device: FWW right LE lag Assessment Patient tolerated treatment well and is highly motivated with progress. PT to continue to increase activity as tolerated by patient. PT Short Term Goals Short Term Goals Time Frame: Dec 04, 2016 Gait (FIM): 5 Distance (FIM): 3=150 ft Gait Distance Comment: 150' Gait Level of Assist: 5 Gait Assistive Device: FWW PT Bacteriology Technician Goals Detention Goals PT Detention Goals Time Frame: Dec 18, 2016 Transfers (B,C,W/C) (FIM): 6 Sit to Lying (QC): 5 Lying-Sitting on Side/Bed(QC): 5 Sit to Stand (QC): 5 Rollin Roll Left to Right (QC): 5 Chair/Tsa-cg-Godds Xfer(QC): 5 Car Transfer (QC): 5 Does the Patient Walk: Yes Gait (FIM): 6 Gait distance (FIM): 3=150 ft Distance: 150' Walk 10 feet (QC): 5 Walk 10ft-Uneven Surface(QC): 5 Walk 50ft with 2 Turns (QC): 5 Walk 150 ft (QC): 5 Gait Level of Assist: 6 Gait Assistive Device: FWW Stairs (FIM): 2 # of Steps: 4 1 Step (curb) (QC): 5 4 Steps (QC): 5 12 Steps (QC): 9 Stairs Level Of Assist: 5 Picking up an Object (QC): 5 PT Plan Treatment/Plan Treatment Plan: Continue Plan of Care Treatment Plan: Bed Mobility, Education, Functional Activity Xochilt, Functional Strength, Group Therapy, Gait, Safety, Therapeutic Exercise, Transfers Treatment Duration: Dec 18, 2016 Minutes/Day (M-F): 60-90 Minutes/Day (Sat/Lucero): PRN Time/GCodes Time In: 1400 Time Out: 1430 Total Billed Treatment Time: 30 Total Billed Treatment 1 visit GT x 2 30 min GALLITO WOODARD PT Nov 20, 2016 14:36
[2016-11-20] MEDS: MEPERIDINE (DEMEROL) INJ 50 MG/ML IVP PRN ×2 (14:57→20:19)
[2016-11-20] MEDS: RT-ALBUTEROL/IPRATROPIUM 3 ML (DUONEB) VIAL INH SCH ×2 (15:10→19:51)
[2016-11-20] MEDS: MAGNESIUM OXIDE (MAG-OX)400 MG TAB PO SCH (17:00)
[2016-11-20] MEDS: ALFUZOSIN HCL 10 MG TAB (UROXATRAL) PO SCH (17:23)
--- NOTE | 2016-11-20 18:10 | Diagnostic Imaging Report ---
INDICATION: Shortness of breath. EXAMINATION: PA and lateral chest at 2:53 p.m. FINDINGS: The heart size is within normal limits and the heart does seem less prominent than noted on the prior exam of 10/23/16. In the interval since the previous study, a small amount of fluid has developed in the right lung base. The right lung, itself, seems generally clear. The right upper lung and left lung are also clear and well aerated. The mediastinum is not widened. The osseous structures are intact. In the interval since the prior study, the patient has had surgical procedure. There is now an orthopedic plate and screw fixation device overlying the cervicothoracic junction. The orthopedic hardware and the battery pack overlying the upper thoracic spine, seen previously, are again evident and no different. IMPRESSION: 1. The appearance of the chest has worsened since the prior study as a small right pleural effusion has developed. There is no acute cardiopulmonary abnormality identified otherwise. 2. There has been an interval surgical procedure involving the cervicothoracic junction. Dictated by: Dictated on workstation # [id number]
[2016-11-20 18:29] VITALS: BP 167/71
--- NOTE | 2016-11-20 19:06 | Progress Note-Standard ---
Standard Progress Note Progress Notes/Assess & Plan Progress/Assessment & Plan ENT-Kael Patient seen and evaluated diffiulcty swalwoing post cervical spine surgery currently NPO-modified swallow scheudled for am Fiberoptic Laryngosocpy-showed the crds to be mobile but the epiglottis is not moving saliva is sliding down to laryngeal inlet which then triggers a cough reflex this may indicate either a temporary (hopefully) or a permanent superior laryngeal nerve abnormality if the modified swallow shows significant aspiration then may need to consider a feeding tube at [facility] temporarily to allow time for the nerve to work-that could take several months and t here is a chance that it would be out permanently Full note dictated Final Diagnosis Dysphagia MEENAKSHI MCKEE MD Nov 20, 2016 7:06 pm
[2016-11-20] MEDS: DOCUSATE SODIUM 100 MG (COLACE) CAP PO SCH (19:31)
[2016-11-20] MEDS: RT-BUDESONIDE NEBS 0.5 MG/2ML (PULMICORT) AMP INH SCH (19:51)
[2016-11-20] MEDS: PIPERACILLIN SODIUM/TAZOBACTAM 4.5 GM in NS (IVPB) 100 ML IV SCH (20:09)
[2016-11-20] MEDS: FAMOTIDINE 20MG/2ML IV (PEPCID) IVP PRN (20:10)
[2016-11-20] MEDS: FAMOTIDINE 20 MG (PEPCID) TABLET PO SCH (20:10)
[2016-11-20] MEDS ORDERED: MAGNESIUM OXIDE (MAG-OX)400 MG TAB PO SCH (21:00)
[2016-11-21] MEDS: NS IV 1000 ML 1,000 ML IV SCH ×2 (01:30→02:20)
[2016-11-21] MEDS: MULTIVIT W/MINERALS TAB (THERAGRAN M) PO SCH (02:21)
[2016-11-21] MEDS: MEPERIDINE (DEMEROL) INJ 50 MG/ML IVP PRN (03:22)
[2016-11-21] MEDS: PIPERACILLIN SODIUM/TAZOBACTAM 4.5 GM in NS (IVPB) 100 ML IV SCH ×3 (04:12→20:32)
[2016-11-21] MEDS: MAGNESIUM OXIDE (MAG-OX)400 MG TAB PO SCH ×2 (04:42→17:00)
[2016-11-21 05:58] VITALS: BP 146/60
[2016-11-21 06:58] LABS: BASOPHILS % (AUTO) 0 % (0-10); EOSINOPHILS # (AUTO) 0.2 10^3/uL (0.0-0.3); EOSINOPHILS % (AUTO) 2 % (0-10); LYMPHOCYTES # (AUTO) 1.3 X 10^3 (1.0-4.0); LYMPHOCYTES % (AUTO) 14 % (12-44); MEAN CORPUSCULAR HEMOGLOBIN 29 PG (25-34); MEAN CORPUSCULAR HGB CONC 32 G/DL (32-36); MEAN CORPUSCULAR VOLUME 89 FL (80-99); MEAN PLATELET VOLUME 11.3 FL (7.4-10.4); MONOCYTES # (AUTO) 0.9 X 10^3 (0.0-1.0); MONOCYTES % (AUTO) 10 % (0-12); NEUTROPHILS % (AUTO) 74 % (42-75); PLATELET COUNT 191 10^3/uL (130-400); RED BLOOD COUNT 2.83 10^6/uL (4.35-5.85); RED CELL DISTRIBUTION WIDTH 14.9 % (10.0-14.5); WHITE BLOOD COUNT 9.5 10^3/uL (4.3-11.0)
[2016-11-21 07:19] LABS: ALANINE AMINOTRANSFERASE 16 U/L (0-55); ALBUMIN 2.9 G/DL (3.2-4.5); ANION GAP 12 MMOL/L (5-14); ASPARTATE AMINO TRANSFERASE 19 U/L (5-34); BILIRUBIN,TOTAL 0.7 MG/DL (0.1-1.0); BLOOD UREA NITROGEN 11 MG/DL (7-18); BUN/CREATININE RATIO 20; CALCIUM 8.1 MG/DL (8.5-10.1); CARBON DIOXIDE 22 MMOL/L (21-32); CHLORIDE 104 MMOL/L (98-107); CREATININE SERUM 0.55 MG/DL (0.60-1.30); GFR ESTIMATED > 60; GLUCOSE 63 MG/DL (70-105); POTASSIUM 3.7 MMOL/L (3.6-5.0); SODIUM 138 MMOL/L (135-145); TOTAL PROTEIN 5.1 G/DL (6.4-8.2)
[2016-11-21] MEDS: RT-ALBUTEROL/IPRATROPIUM 3 ML (DUONEB) VIAL INH SCH ×3 (07:41→20:50)
[2016-11-21] MEDS: RT-BUDESONIDE NEBS 0.5 MG/2ML (PULMICORT) AMP INH SCH ×2 (07:41→20:50)
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
--- NOTE | 2016-11-21 08:38 | CONSULTATION REPORT ---
DATE OF CONSULTATION: REFERRING PHYSICIAN: Dr. Rivas REASON FOR CONSULTATION: Dysphagia. HISTORY OF PRESENT ILLNESS: The patient is a 71-year-old male who had a cervical spinal surgery on Thursday. He is now able to get up and walk and actually walked outside today which is a significant improvement for him. Unfortunately he has had difficulty with his swallowing since surgery. He is currently n.p.o. and is scheduled for a modified barium swallow on Thursday. He coughs his saliva up. His voice has been somewhat raspy. He did not have these symptoms prior to the surgery. The cervical spine surgery was done through an anterior left sided approach. ALLERGIES: ADHESIVE TAPE. PHYSICAL EXAMINATION: NOSE: Normal nasal mucosa. There are no masses or lesions seen. The nose was anesthetized with topical 4% Xylocaine and flexible fiber-optic laryngoscopy was then performed. On evaluation, the nasopharynx was clear. No mass or lesions present. He had good closure of the nasopharynx. MOUTH: The oral cavity showed the tongue with its normal mobility. No fasciculations and strong gag reflex. The hypopharynx and larynx were examined with the flexible scope. On evaluation the vocal cords themselves were mobile. They moved and met in the midline. He had mild pooling of secretions in the piriform sinuses. On swallowing the epiglottis did not close over the larynx in watching him his saliva ran down past the epiglottis to the level of the vocal cords which then initiated a cough reflex. NECK: No mass or adenopathy palpable in the neck. He has a healing incision on the left. He is in a neck brace. IMPRESSION: Dysphagia. RECOMMENDATIONS: Findings were discussed with the patient. At this point his epiglottis is not moving well. 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 We will see what happens when they thicken the liquid for a modified barium swallow. Hopefully this will resolve with time. If it does not and he is not able to get in his nutrition, then he will need a feeding tube placed. I have discussed all this with him and he understands the importance of trying to prevent the occurrence of an aspiration pneumonia. Will follow-up with him after he has had the modified swallow. Job ID: [id number] Dictated Date: 11/21/2016 06:49:37 Machine Pecan Picker Date: 11/21/2016 08:28:30/felicita
[2016-11-21] MEDS: DOCUSATE SODIUM 100 MG (COLACE) CAP PO SCH ×2 (08:39→20:32)
[2016-11-21] MEDS: FOLIC ACID 1 MG TAB PO SCH (08:40)
[2016-11-21] MEDS: lisINopril 10 MG (PRINIVIL) TAB PO SCH (08:41)
[2016-11-21] MEDS: CYANOCOBALAMIN 500 MCG TAB (VITAMIN B-12) PO SCH (08:41)
[2016-11-21] MEDS: FAMOTIDINE 20 MG (PEPCID) TABLET PO SCH ×2 (08:41→20:33)
[2016-11-21] MEDS: THIAMINE 100 MG (VITAMIN B-1) TAB PO SCH (08:41)
[2016-11-21] MEDS: PYRIDOXINE (VITAMIN B-6) 50 MG TABLET PO SCH (08:41)
[2016-11-21] MEDS: FAMOTIDINE 20MG/2ML IV (PEPCID) IVP PRN ×2 (08:46→20:32)
[2016-11-21] MEDS ORDERED: FOLIC ACID 1 MG TAB PO SCH (09:00)
[2016-11-21] MEDS ORDERED: THERAPEUTIC MULTIVITAMINS LIQUID 5 ML UDC PO SCH ×2 (09:00)
--- NOTE | 2016-11-21 09:37 | PM & R (SOAP) Progress Note ---
Subjective Subjective/Events-last exam Patient was seen in his room this AM Having MBS this AM Appreciate DR aWtts note Appreciate therapy notes,Patient min assit for transfers Patient NPO for now. Review of Systems HEENT: Other (dysphagia) Musculoskeletal: : back pain: neck pain Neurological: : Weakness Objective Exam Last Set of Vital Signs Vital Signs Date Time Temp Pulse Resp B/P Pulse Ox O2 Delivery O2 Flow Rate FiO2 11/21/16 07:41 94 11/21/16 05:58 98.6 67 16 146/60 Room Air Capillary Refill : I&O Bad tableGeneral: Alert, Oriented X3, Cooperative, No Acute Distress HEENT: Atraumatic, PERRLA, EOMI, Mucous Memb Moist/[place], Other (dysphagia) Neck: Other (Rigid collar in place) Lungs: Clear to Auscultation Heart: Regular Rate Abdomen: Normal Bowel Sounds, Soft, No Tenderness Neuro: Other (decreased sensation to touch in hands and feet Decreased strength in all 4 limbs) Other physical findings Indwellin beltran catheter to DD Results Lab Laboratory Tests 11/20/16 12:20: Alanine Aminotransferase (ALT/SGPT) 20, Albumin 3.3, Alkaline Phosphatase 77, Anion Gap 11, Aspartate Amino Transf (AST/SGOT) 21, BUN/Creatinine Ratio 13, Basophils # (Auto) 0.0, Basophils (%) (Auto) 0, Blood Urea Nitrogen 7, Calcium Level 8.6, Carbon Dioxide Level 24, Chloride Level 103, Creatinine 0.53L, Eosinophils # (Auto) 0.1, Eosinophils (%) (Auto) 1, Estimat Glomerular Filtration Rate > 60, Glucose Level 91, Hematocrit 29L, Hemoglobin 9.4L, Lactic Acid Level 1.28, Lymphocytes # (Auto) 1.2, Lymphocytes (%) (Auto) 12, Mean Corpuscular Hemoglobin 29, Mean Corpuscular Hemoglobin Concent 32, Mean Corpuscular Volume 89, Mean Platelet Volume 10.3, Monocytes # (Auto) 1.0, Monocytes (%) (Auto) 10, Neutrophils # (Auto) 7.9H, Neutrophils (%) (Auto) 77H, Platelet Count 203, Potassium Level 3.9, Red Blood Count 3.26L, Red Cell Distribution Width 15.1H, Sodium Level 138, Total Bilirubin 0.7, Total Protein 6.0L, White Blood Count 10.3 11/21/16 05:19: Alanine Aminotransferase (ALT/SGPT) 16, Albumin 2.9L, Alkaline Phosphatase 64, Anion Gap 12, Aspartate Amino Transf (AST/SGOT) 19, BUN/Creatinine Ratio 20, Basophils # (Auto) 0.0, Basophils (%) (Auto) 0, Blood Urea Nitrogen 11, Calcium Level 8.1L, Carbon Dioxide Level 22, Chloride Level 104, Creatinine 0.55L, Eosinophils # (Auto) 0.2, Eosinophils (%) (Auto) 2, Estimat Glomerular Filtration Rate > 60, Glucose Level 63L, Hematocrit 25L, Hemoglobin 8.1L, Lymphocytes # (Auto) 1.3, Lymphocytes (%) (Auto) 14, Mean Corpuscular Hemoglobin 29, Mean Corpuscular Hemoglobin Concent 32, Mean Corpuscular Volume 89, Mean Platelet Volume 11.3H, Monocytes # (Auto) 0.9, Monocytes (%) (Auto) 10 , Neutrophils # (Auto) 7.0, Neutrophils (%) (Auto) 74, Platelet Count 191, Potassium Level 3.7, Red Blood Count 2.83L, Red Cell Distribution Width 14.9H, Sodium Level 138, Total Bilirubin 0.7, Total Protein 5.1L, White Blood Count 9.5 Assessment/Plan Assessment Ambulatory dysfunction secondary to Cervical spondylosis s/p decompression orthospine with associated myelopathy due to Nontraumatic Spinal cord dysfunction Dysphagia awaiting MBS results patient currently NPO Neurogenic bladder-managed with Indwelling Beltran catheter PTSD HTN controlled HX of tobaccoism Chronic low back pain s/p spinal surgereies in the past Thoracic and abdominal aortic aneurysm monitored by PCP Plan CONtinue PT/OT/ST F/U re MBS results and ST recs Patient may require Tube feedings if remains NPO F/U with Hospitalist service and Orthospine DAVID LYNN MD Nov 21, 2016 09:37
--- NOTE | 2016-11-21 09:44 | Individualized Plan of Care ---
Individualized Plan of Care Rehab Nursing IPOC Order Admission Date Nov 20, 2016 at 10:20 Current Orders Consult Physician (11/20/16 11:16) Modified Barium Swallow (11/20/16 11:16) Admission-Acute Rehab Unit (11/20/16 10:10) Modified Barium Swallow (11/21/16 09:30) Catheter(Urinary) To Dependent (11/20/16 11:36) Sequential Compression Device 08,20 (11/20/16 11:36) Turn, Cough, And Deep Breathe (11/20/16 11:36) Incentive Spirometry (Nursing) Q2H (11/20/16 11:36) Weight Bearing Status (11/20/16 11:36) Pyridoxine Tablet (Vitamin B-6 Tablet) (11/21/16 09:00) Sertraline Tablet (Zoloft Tablet) (11/20/16 14:00) Therapeutic Multivitamin Tab (Vitamins, (11/21/16 07:00) Famotidine Tablet (Pepcid Tablet) (11/20/16 21:00) Tramadol Tablet (Ultram Tablet) (11/20/16 13:00) Magnesium Oxide Tablet (Mag Ox Tablet) (11/20/16 17:00) Docusate Sodium Capsule (Colace Capsule) (11/20/16 21:00) Folic Acid Tablet (Folic Acid Tablet) (11/21/16 09:00) Thiamine Tablet (Vitamin B-1 Tablet) (11/21/16 09:00) Lisinopril Tablet (Zestril Tablet) (11/21/16 09:00) Alfuzosin Tablet (Uroxatral Tablet) (11/20/16 18:00) Multivitamins Liquid (Certavite Liquid) (11/21/16 09:00) Albuterol/Ipra Inhalation Soln (Duoneb I (11/20/16 14:00) Cyanocobalamin Tablet (Vitamin B-12 Tabl (11/21/16 09:00) Svn Sm Volume Nebulizer Rt-Rfs (11/20/16 11:36) Svn Sm Volume Nebulizer Rt-Rfs (11/20/16 11:36) Pt Evaluate/Treat Request (11/20/16 11:36) Request Ot Evaluate & Treat (11/20/16 11:36) Request For Cognitive Services (11/20/16 11:36) Request For Dysphagia Services (11/20/16 11:36) Consult Physician (11/20/16 11:36) Nothing By Mouth (11/20/16 Dinner) Rehab Nursing Orders-Ipoc (11/20/16 11:52) Patient Visit (11/20/16 ) Speech Sound Lang Comp (11/20/16 ) Patient Visit (11/20/16 ) Dysphagia Evaluation Std (11/20/16 ) Ns Iv 1000 Ml (Sodium Chloride 0.9%) (11/20/16 12:00) Chest Pa/Lat (2 View) (11/20/16 11:59) Blood Culture (11/20/16 11:59) Lactic Acid Analyzer (11/20/16 11:59) Cbc With Automated Diff (11/20/16 11:59) Comprehensive Metabolic Panel (11/20/16 11:59) Nitroglycerin Ointment (Nitrobid Ointme (11/20/16 12:00) Cbc With Automated Diff (11/21/16 06:00) Comprehensive Metabolic Panel (11/21/16 06:00) Budesonide Inhalation Solution (Pulmicor (11/20/16 21:00) Svn Sm Volume Nebulizer Rt-Rfs (11/20/16 11:59) Famotidine Injection (Pepcid Injection) (11/20/16 21:00) Meperidine Injection (Demerol Injection) (11/20/16 13:00) Piperacillin Sodium/Tazobactam (Zosyn Vi (11/20/16 20:00) Piperacillin Sodium/Tazobactam (Zosyn Vi (11/20/16 14:00) Patient Visit (11/20/16 ) Pt Eval Moderate Complexity (11/20/16 ) Exercise Therap, Ea 15 Min (11/20/16 ) Gait Training, Ea 15 Min (11/20/16 ) Consult Physician (11/20/16 15:43) Rehab Nursing Orders: Diseage Management, Edu in Press Rel Techn, Hydration Management, Nutrition Management, Pain Management Other Nursing Orders: Beltran cathere care for Neurogenic bladder PT IPOC Problem List: Activity Tolerance, Functional Strength, Balance, Gait, Transfer Treatment Plan: Continue Plan of Care Bed Mobility, Education, Functional Activity Xochilt, Functional Strength, Group Therapy, Gait, Safety, Therapeutic Exercise, Transfers Treatment Duration: Dec 18, 2016 Visits Per Week: 10-12 Minutes/Day (M-F): 60-90 Minutes/Day (Sat/Lucero): PRN OT IPOC Problems: Decreased Activ Tolerance, Decreased UE Strength, Dependent Transfers , Impaired Coordination, Impaired Funct Balance, Impaired I ADL's, Impaired Self -Care Skills Plan of Care: ADL Retraining, Functional Mobility, Group Exercise/Act as Ind, UE Funct Exercise/Act, UE Neuromus Re-Ed/Coord Treatment Duration: Dec 18, 2016 Visits Per Week: 10-12 Minutes/Day (M-F): 60-90 Minutes/Day (Sat/Lucero): PRN ST IPOC Speech Therapy Treatment Plan: Continue Plan of Care Treatment Duration: Dec 11, 2016 Visits Per Week: 3-5 Minutes/Day (M-F): 30-45 Physician IPOC Medical Issues being managed closely and that require the 24 hour availability of a physician:Postop dysphagia MBS pending Patient currently NPO HTN pain management Neurogenic bladder chronic Medical Issues: Bowel/Bladder Function, DVT Prophylaxis, Falls Precautions, Fluid/Electrolyte/Nutrition Balance, Infection Protection, Pain Management, Swallowing Precautions, Weight Bearing Precautions, Wound Care, Other (List) ( as per above) Brief Synthesis of Preadmission Screen, Post-Admission Evaluation, and Therapy Evaluations:71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 Medical Prognosis: good Anticipated Length of Stay: 330-17 Rehab Goals Modified [place] to supervision for adls and mobility skills Improved swallow or arrangement for tube feeds. Anticipated discharge destinat: Home with son with DAVID BUITRAGO MD Nov 21, 2016 09:43
--- NOTE | 2016-11-21 10:03 | Physical Therapy Daily Note ---
PT Daily Note-Current Subjective Pt sitting in recliner upon arrival. PT agrees to PT. Mental Status Patient Orientation: Person, Place, Time, Situation Attachments: Jones Catheter, IV Transfers Functional [place] Measure 0=Not Assessed/NA 4=Minimal Assistance 1=Total Assistance 5=Supervision or Setup 2=Maximal Assistance 6=Modified [place] 3=Moderate Assistance 7=Complete IndependenceIRFPAI Quality Coding Scale 6 Independent with activity with or without an assistive device 5 Patient requires set up or clean up by helper. Patient completes activity by themselves 4 Supervision or touching assist (CGA). [place] provide cues , steadying assist 3 The helper provides less than half the effort to complete the activity 2 The helper provides more than half the effort to complete the activity 1 Dependent. The helper does all the effort to complete an activity 7 Patient refused to complete or attempt activity 9 The patient did not perform the activity before the current illness or injury 88 Not attempted due to Medical conditions or safety concerns Transfers (B, C, W/C) (FIM): 4 Scootin Sit to/from Stand: 4 Sit to Stand (QC): 4 Weight Bearing Weight Bearing Restriction: Full Weight Bearing Location Restriction: LE Bilateral Gait Training Does the Patient Walk?: Yes Gait (FIM): 4 Distance (FIM): 3=150 ft Distance: 150' Walk 10 feet (QC): 4 Walk 50 ft with 2 Turns(QC): 4 Walk 150 ft (QC): 4 Gait Level of Assist: 4 Gait Persons Needed: 1 Gait Assistive Device: FWW Pt has slow mariano and terminal extension w/LLE. Wheelchair Training Does the Pt Use a Wheelchair?: No Treatments Pt transfers at Min A using FWW. Pt ambulated using FWW at CGA to and from tx. Pt used NuStep for 15m before needing to use restroom so returned to room. Pt left sitting in recliner with all needs met and nurse present at end of tx. Assessment Current Status: Good Progress Pt is motivated and works hard. Pt has some difficulty with ambulation safety so is CGA. PT Short Term Goals Short Term Goals Time Frame: Dec 04, 2016 Gait (FIM): 5 Distance (FIM): 3=150 ft Gait Distance Comment: 150' Gait Level of Assist: 5 Gait Assistive Device: FWW PT Riverboat Captain Goals Riverboat Captain Goals PT Senior Care Goals Time Frame: Dec 18, 2016 Transfers (B,C,W/C) (FIM): 6 Sit to Lying (QC): 5 Lying-Sitting on Side/Bed(QC): 5 Sit to Stand (QC): 5 Rollin Roll Left to Right (QC): 5 Chair/Fkk-nl-Maech Xfer(QC): 5 Car Transfer (QC): 5 Does the Patient Walk: Yes Gait (FIM): 6 Gait distance (FIM): 3=150 ft Distance: 150' Walk 10 feet (QC): 5 Walk 10ft-Uneven Surface(QC): 5 Walk 50ft with 2 Turns (QC): 5 Walk 150 ft (QC): 5 Gait Level of Assist: 6 Gait Assistive Device: FWW Stairs (FIM): 2 # of Steps: 4 1 Step (curb) (QC): 5 4 Steps (QC): 5 12 Steps (QC): 9 Stairs Level Of Assist: 5 Picking up an Object (QC): 5 PT Plan Problem List Problem List: Activity Tolerance, Functional Strength, Safety, Balance, Gait, Transfer Treatment/Plan Treatment Plan: Continue Plan of Care Treatment Plan: Bed Mobility, Education, Functional Activity Xochilt, Functional Strength, Group Therapy, Gait, Safety, Therapeutic Exercise, Transfers Treatment Duration: Dec 18, 2016 Visits Per Week: 10-12 Minutes/Day (M-F): 60-90 Minutes/Day (Sat/Lucero): PRN Safety Risks/Education Patient Education: Gait Training, Transfer Techniques Teaching Recipient: Patient Teaching Methods: Discussion Response to Teaching: Verbalize Understanding Time/GCodes Time In: 815 Time Out: 900 Total Billed Treatment Time: 45 Total Billed Treatment visit, FA (15m), EX (15m) & GT (15m) GARCIA CEJA PTA Nov 21, 2016 10:03
--- NOTE | 2016-11-21 10:59 | Conscious Sedation/ASA ---
Conscious Sedation Pre-Proced Time Reviewed: 10:45 ASA Class: 2 Airway Mallampati Classification: ([place] appropriate class) I. II. III, IV Lungs Heart ASA score ASA 1: a normal healthy patient ASA 2: a patient with a mild systemic disease (mid diabetes, controlled hypertension, obesity ASA 3: a patient with a severe systemic disease that limits activity (angina , COPD, prior Myocardial infarction) ASA 4: a patient with an incapacitating disease that is a constant threat to life (CHF, renal failure) ASA 5: a moribund patient not expected to survive 24 hrs. (ruptured aneurysm) ASA 6: a declared brain patient whose organs are being harvested. For emergent operations, add the letter E after the classification Grade 2 Sedation Plan: Analgesia, Amnesia, Plan communicated to team members, Discussed options with patient/fam, Discussed risks with patient/fam Note The patient is an appropriate candidate to undergo the planned procedure, sedation, and anesthesia. The patient immediately re-assessed prior to indication. ROSEANNA PHILLIPS MD Nov 21, 2016 10:59 am
--- NOTE | 2016-11-21 10:59 | Progress Note-Pre Operative ---
Pre-Operative Progress Note H&P Reviewed The H&P was reviewed, patient examined and no changes noted. Date H&P Reviewed: Nov 21, 2016 Time H&P Reviewed: 10:45 Pre-Operative Diagnosis: severe dysphagia ROSEANNA PHILLIPS MD Nov 21, 2016 10:59 am
--- NOTE | 2016-11-21 11:15 | Occupational Ther Daily Note ---
OT Current Status-Daily Note Subjective Pt sitting in chair, agrees to treatment. Pt reports low back pain. Mental Status/Objective Functional [place] Measure 0=Not Assessed/NA 4=Minimal Assistance 1=Total Assistance 5=Supervision or Setup 2=Maximal Assistance 6=Modified [place] 3=Moderate Assistance 7=Complete [place] Attachments: Jones Catheter, IV ADL-Treatment Pt would like to shower this morning. RN states pt may shower with cervical collar in place and she would change neck dressing after shower. IV was covered during shower to prevent getting wet. Pt sit to stand with minimal assistance. Gait to restroom with FWW. Transfer to walk in shower with minimal assistance using grab bars. Pt doffed clothing with assistance. Seated bathing completed using hand held shower and long handled sponge. Pt able to wash bilateral UE, chest, abdomen, and juliet area. Pt used long handled sponge to wash lower legs and feet, but required assist to dry those areas. RN present to change dressing and cervical collar pads were changed. Don pullover shirt with minimal assistance. Pt required maximal assistance to don Depends and pants. Total assist to don socks. Increased time required for ADL tasks. Pt sitting in chair with needs met after session, daughter present. Functional [place] Measure 0=Not Assessed/NA 4=Minimal Assistance 1=Total Assistance 5=Supervision or Setup 2=Maximal Assistance 6=Modified [place] 3=Moderate Assistance 7=Complete IndependenceIRFPAI Quality Coding Scale 6 Independent with activity with or without an assistive device 5 Patient requires set up or clean up by helper. Patient completes activity by themselves 4 Supervision or touching assist (CGA). [place] provide cues , steadying assist 3 The helper provides less than half the effort to complete the activity 2 The helper provides more than half the effort to complete the activity 1 Dependent. The helper does all the effort to complete an activity 7 Patient refused to complete or attempt activity 9 The patient did not perform the activity before the current illness or injury 88 Not attempted due to Medical conditions or safety concerns Bathing (FIM): 3 Bathing Location: L Arm, R Arm, Chest, Abdomen, Perineal Area Shower/Bathe Self (QC): 3 Upper Body (FIM): 4 Lower Body Dressing (FIM): 2 Shower Transfer(FIM): 4 Education OT Patient Education: Modified ADL techniques Teaching Recipient: Patient Teaching Methods: Discussion Response to Teaching: Verbalize Understanding OT Short Term Goals Short Term Goals Time Frame: Dec 04, 2016 Grooming(FIM): 5 Bathing(FIM): 4 Upper Body Dressing(FIM): 5 Lower Body Dressing(FIM): 4 Toileting(FIM): 3 Toilet/Commode Transfer(FIM): 5 Shower Transfer(FIM): 4 Additional Short Term Goals: 1-Demonstrate ADL Tasks, 2-Verbalize Understanding , 3-ImproveStrength/Xochilt 1=Demonstrate adherence to instructed precautions during ADL tasks. 2=Patient will verbalize/demonstrate understanding of assistive devices/ modifications for ADL. 3=Patient will improve strength/tolerance for activity to enable patient to perform ADL's. OT Usp Goals Usp Goals Time Frame: Dec 18, 2016 Eating (FIM): 6 Eating (QC): 6 Groomin Oral Hygiene (QC): 6 Bathing(FIM): 5 Shower/Bathe Self (QC): 4 Upper Body Dressing(FIM): 5 Upper Body Dressing (QC): 5 Lower Body Dressing(FIM): 5 Lower Body Dressing (QC): 5 On/Off Footwear (QC): 5 Toileting(FIM): 6 Toileting Hygiene (QC): 6 Toilet/Commode Transfer(FIM): 6 Shower Transfer(FIM): 5 Additional Goals: 1-Demonstrate ADL Tasks, 2-Verbalize Understanding, 3- ImproveStrength/Xochilt 1=Demonstrate adherence to instructed precautions during ADL tasks. 2=Patient will verbalize/demonstrate understanding of assistive devices/ modifications for ADL. 3=Patient will improve strength/tolerance for activity to enable patient to perform ADL's. OT Education/Plan Discharge Recommendations Plan/Recommendations: Continue POC Treatment Plan/Plan of Care Patient would benefit from OT for education, treatment and training to promote independence in ADL's, mobility, safety and/or upper extremity function for ADL' s. Plan of Care: ADL Retraining, Functional Mobility, Group Exercise/Act as Ind, UE Funct Exercise/Act, UE Neuromus Re-Ed/Coord Treatment Duration: Dec 18, 2016 Visits Per Week: 10-12 Minutes/Day (M-F): 60-90 Minutes/Day (Sat/[place]): PRN Agreement: Yes Rehab Potential: Fair Time/GCodes Start Time: 10:00 Stop Time: 11:00 Total Time Billed (hr/min): 60 Billed Treatment Time 1 visit, ADLx4(60minutes) GEE GOMEZ OT Nov 21, 2016 11:15
--- NOTE | 2016-11-21 11:43 | Progress Note-Hospitalist ---
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 Dr. Angeles states that epiglottis is paralyzed or stretched, and pt will remain npo currently. Pt is open to the idea of a feeding tube, and Dr. Angeles discussed this with pt last night. Patient Interview: Pt states that he feels ok today. Dr. Devine discusses pts inability to swallow, and pt is concerned about this issue. Pt is open to the idea of a feeding tube, but is unsure if he will regain the ability to swallow. Dr. Devine encourages pt to focus on nutrition currently in order to continue recovery. Pt agrees to speak with Dr. Agrawal regarding the placement of the feeding tube, and would like to have operation done today if possible. Physical exam stable. Lungs much improved. No fever, vital signs stable, pale, frail, thin Regular rate and rhythm, clear to auscultation bilaterally only diminished in the right lower lobe No rales or noted today or wheezing Assessment: Cervical spine surgery uncomplicated performed by Dr. 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 Agrawal today COPD Hypertension BPH with chronic urinary retention and neurogenic bladder requiring indwelling catheter hopefully to DC and future after cervical spine issues resolve Postoperative crackles and rales on right lower lobe with effusion and infiltrate placed on abx empirically to cover for aspiration Severe debility Plan: NPO Feeding tube placement by Dr. Agrawal today Abx Monitor closely Nebs Scribed by Talib Walker under the direct supervision of Dr. Devine. BRIJESH DEVINE DO Nov 21, 2016 11:42
--- NOTE | 2016-11-21 13:21 | ST Mod Barium Swallow ---
Speech Evaluation-General Medical Diagnosis s/p Cervical Spine Surgery Onset Date: Nov 17, 2016 Therapy Diagnosis Therapy Diagnosis: Severe Pharyngeal Dysphagia Precautions Precautions: Aspiration Precautions/Isolations: Aspiration, Fall Prevention, Standard Precautions, Pressure Ulcer Referral Referring Physician: Dr. Seymour Rivas Reason for Referral: Evaluation/Treatment Modified Barium Swallow Evaluation Medical History Pertinent Medical History: Arthritis, COPD, CVA, HTN Reviewed History: Yes Social History Current Living Status: Spouse Speech Mod Barium Swallow Prior Level of Function Prior to the patient's cervical spinal procedure, he was consuming a regular diet without difficulty (signs/symptoms of aspiration) at home. Per patient, since his procedure on 11/21/2016, he has been "coughing and choking on everything, liquids and food." The patient participated in a bedside swallow evaluation on 11/20/2016 and was placed NPO by this clinician as he demonstrated signs/symptoms with all consistencies provided (thin liquid, honey-thick liquid , puree). The patient agreed to participate in the modified barium swallow on this date. To note: Dr. Angeles completed flexible endoscopy with the patient. The endoscopy revealed bilateral, mobile vocal cords, however, absent inversion of the epiglottis during the swallow. CXR (11/20/2016): 1. The appearance of the chest has worsened since the prior study as a small right pleural effusion has developed. There is no acute cardiopulmonary abnormality identified otherwise. Oral Motor Skills Dentition Natural Dentures: Full (Natural) Lingual Protrusion: Normal Lingual ROM: Normal Lingual Strength: Normal Velum: Normal Volitional Dry Swallow: Yes (Odynophagia continues to be reported with dry swallow.) Voluntary Cough: Yes Can Clear Throat Volitionally: Yes Textures-Lateral View Lateral View Food Presentation: Honey Liquid via Spoon, Pureed Solids Oral Phase Labial Closure: No Impairment (WFL) Bolus Formation Pooling L/R: No Impairment (WFL) Bolus Formation Placement: No Impairment (WFL) Solid consistencies were deferred due to consistent aspiration. A/P Lingual Propulsion: No Impairment (WFL) Lingual Movement: No Impairment (WFL) No oral impairmens were noted throughout the assessment. Oral Phase Residue: Minimal Impairment (Minimal residue was noted with honey- thick liquid and puree consistencies tested.) Pharyngeal Phase Swallow Response: Minimal Impairment (The patient triggered the pharyngeal swallow response slightly prior to the vallecular space.) Base of Tongue: Minimal Impairment Epiglottic Movement: Severe Impairment (Limited to absent epiglottic inversion was noted which correlates to severely decreased hyo-laryngeal excursion.) Laryngeal Elevation: Moderate Impairment Vallecular Residue: Moderate (With all consistencies tested.) Pharyngeal Wall Residue: Mild (With all consistencies tested.) Piriform Sinus Residue: Moderate (With all consistencies tested.) Laryngeal Penetration: Moderate (With all consistencies tested.) Aspiration Observations: Severe (With all consistencies tested.) Other Pharyngeal Observations: Consistent moderate aspiration was demonstrated with honey-thick liquid (via teaspoon) and puree consistencies during and following the swallow. An immediate cough was demonstrated in response to the aspiration, however, the aspirated material was not cleared from the airway in its entirety. Additionally, consistent aspiration occurred of residual material (all consistencies) from the pyriform sinuses through the posterior inter-arytenoid space post swallow. Compensatory maneuvers (breath hold, super supra glottic swallow, decrease in bolus size) were not efficient at eliminating aspiration. A chin tuck could not be attempted due to the presence of the C-Collar. Performed-A/P View Not Applicable/Performed Summary/Impressions The patient demonstrated severe pharyngeal dysphagia characterized by mildly reduced base of tongue retraction, moderately reduced pharyngeal wall contraction, a minimal delay of the swallow response (level of the valleculae), and severely reduced hyo-laryngeal excursion (resulting in absent epiglottic inversion). Consistent moderate aspiration was demonstrated with honey-thick liquid (via teaspoon) and puree consistencies. An immediate cough was demonstrated in response to the aspiration, however, the aspirated material was not cleared from the airway in its entirety. Compensatory maneuvers (breath hold , super supra glottic swallow, decrease in bolus size) were not efficient at eliminating aspiration. A chin tuck could not be attempted due to the presence of the C-Collar. Recommendations: - The patient should remain NPO with consideration of alternative, non-oral methods to meet nutrition, hydration, and medication needs (i.e. PEG tube). - Frequent, consistent oral care. - Continued dysphagia therapy to target pharyngeal strengthening. - Repeat video swallow in approximately six to eight weeks to assess for improvement. Speech Short Term Goals Short Term Goals Short Term Goals 1. The patient will participate in a modified barium swallow to definitively rule out aspiration with all consistencies tested. MET. 2. The patient will demonstrate base of tongue, laryngeal, and pharyngeal strengthening exercises with 90% accuracy, independently. Time Frame-STG: Two Weeks Speech Manager Of Sustainability Goals Manager Of Sustainability Goals 1. The patient will tolerate the least restrictive diet without signs/symptoms of aspiration or laryngeal penetration. 2. The patient will participate in an additional modified barium swallow in approximately six to eight weeks. Time Frame: Six to Eight Weeks Speech-Plan Treatment Plan Speech Therapy Treatment Plan: Continue Plan of Care Continue skilled speech pathology services to target pharyngeal strengthening exercises. Treatment Duration: Jan 01, 2017 # of days/week Five. Visits Per Week: Five Minutes/Day (M-F): 30 Rehab Potential: Guarded Safety Risks/Education Teaching Recipient: Patient Teaching Methods: Discussion Response to Teaching: Verbalize Understanding Education Topics Provided: Results, Recommendations Time Speech Therapy Time In: 09:30 Speech Therapy Time Out: 10:00 Total Billed Time: 30 Billed Treatment Time 1, FERNY MISAELDEVYNGORDON Nov 21, 2016 13:21
[2016-11-21] MEDS ORDERED: MIDAZOLAM 2 MG/2 ML (VERSED) VIAL ONE ×6 (13:31→13:53)
[2016-11-21] MEDS ORDERED: LIDOCAINE JELLY 2% (XYLOCAINE) 5 ML TUBE ONE (13:31)
[2016-11-21] MEDS ORDERED: fentaNYL INJECTION 100 MCG/2 ML AMP ONE ×2 (13:31)
[2016-11-21] MEDS ORDERED: HURRICAINE EXT TUBE (BENZOCAINE) ONE (13:32)
[2016-11-21] MEDS: MIDAZOLAM 2 MG/2 ML (VERSED) VIAL IV PRN ×6 (13:35→13:52)
[2016-11-21] MEDS: fentaNYL INJECTION 100 MCG/2 ML AMP IVP PRN ×4 (13:36→13:51)
--- NOTE | 2016-11-21 14:38 | Progress Note-Post Operative ---
Post-Operative Progess Note Pre-Operative Diagnosis severe dysphagia Post-Operative Diagnosis same, reflux esophagitis(class B), no hiatal hernia, mild gastritis, no distal obstructions. Post-Op Procedure Note Date of Procedure: Nov 21, 2016 Name of Procedure: EGD with bx and gastrostomy tube placement. Anesthesia Type CS and local Estimated blood loss (mL): minimal Specimen(s) collected antrum ROSEANNA PHILLIPS MD Nov 21, 2016 2:38 pm
[2016-11-21] MEDS ORDERED: LIDOCAINE JELLY 2% (XYLOCAINE) 5 ML TUBE TOP ONE (14:45)
[2016-11-21] MEDS ORDERED: HURRICAINE EXT TUBE (BENZOCAINE) XX ONE (14:45)
[2016-11-21] MEDS: SERTRALINE 50 MG (ZOLOFT) TABLET PO SCH (15:05)
--- NOTE | 2016-11-21 16:33 | Diagnostic Imaging Report ---
EXAMINATION: Modified barium swallow. INDICATION: Dysphagia. This exam was performed in the presence of a speech pathologist, Mark. FINDINGS: The initial image again shows the postoperative changes seen on the recent cervical spine exam of 11/18/2016. Specifically, there is an orthopedic plate and screw fixation device extending along the anterior aspect of the cervical spine from C3 to T1. There is also metallic strut in place at C5 and C6. As noted on the previous exam, there is approximately 5 mm of anterior translation of C2 with respect to C3 and marked narrowing of the disc space at this level. The patient was given barium impregnated substances to swallow including honey consistency and puree consistency. With the honey consistency, he immediately aspirated. He was then given the puree consistency. He also aspirated a small amount of this material. The patient was then asked to swallow the puree consistency contrast, hold it in his mouth, suspend respiration, and swallow again. When he did this, he was able to swallow the puree consistency without aspiration. IMPRESSION: The swallowing mechanism is compromised as there was aspiration with both the honey consistency and puree impregnated barium substances. Dictated by: Dictated on workstation # [id number]
--- NOTE | 2016-11-21 16:44 | Wound Care Progress Note ---
Subjective Subjective Subjective/Events-last exam Subjective (No Recall) Subjective Subjective Subjective/Events-last exam 61 year old male with pressure ulcer of sacral area present after cervical fusion. Has a history of neurologic deficits following previous lumber decompression, and is currently limited in his ability to reposition self in bed and unable to transfer without assistance. He stated that he can walk with a walker. No c/o voiced of pain related to wounded area. PMH: Neurogenic bladder with suprapubic catheter, COPD, chronic back pain, HTN. FH: Not pertinent. 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 Review of Systems General: No Chills HEENT: No Head Aches, Dysphasia Pulmonary: No Dyspnea Cardiovascular: No: Chest Pain Gastrointestinal: No: Abdominal Pain Genitourinary: Incontinence Retention Musculoskeletal: : back pain: neck pain: other (Diffuse weakness.) Neurological: : Weakness Psych -- No c/o; Endocrine -- No c/o Objective (No Recall) Objective Exam Last Set of Vital Signs Vital Signs Date Time Temp Pulse Resp B/P Pulse Ox O2 Delivery O2 Flow Rate FiO2 11/21/16 14:47 96 3.00 11/21/16 08:00 97.0 88 20 109/59 Nasal Cannula Capillary Refill : I&O Intake and Output 11/21/16 00:00 Intake Total 2690 ml Output Total 3350 ml Balance -660 ml Intake Oral 2690 ml Output Urine Total 3350 ml # Voids 2 # Urine Diapers 1 # Bowel Movements 1 General: Alert, No Acute Distress HEENT: Atraumatic Neck: Other (Hard collar present, no abnormality noted.) Lungs: Normal Air Movement Heart: Regular Rate Abdomen: Soft, No Tenderness Extremities: No Clubbing, No Cyanosis Skin: Other (Sacral wound -- 1.1 x 1.7 x 0.3 cm, base 100% slough, mod. s.s. drainage, periwound OK.) Neuro: Normal Speech Psych/Mental Status: Mental Status NL, Mood NL Results Lab Laboratory Tests 11/21/16 05:36: Basophils # (Auto) 0.1, Basophils (%) (Auto) 1, Eosinophils # (Auto) 0.8H, Eosinophils (%) (Auto) 8, Hematocrit 27L, Hemoglobin 8.4L, Lymphocytes # (Auto) 1.4, Lymphocytes (%) (Auto) 15, Magnesium Level 1.5L, Mean Corpuscular Hemoglobin 30, Mean Corpuscular Hemoglobin Concent 31L, Mean Corpuscular Volume 97, Mean Platelet Volume 9.8, Monocytes # (Auto) 0.9, Monocytes (%) (Auto) 10, Neutrophils # (Auto) 6.1, Neutrophils (%) (Auto) 66, Platelet Count 663H, Red Blood Count 2.77L, Red Cell Distribution Width 14.7H, White Blood Count 9.2 Assessment/Plan (No Recall) Assessment/Plan Assessment/Plan Assessment/Plan 1. Pressure ulcer, sacral, unstageable. 2. Cachexia, due to malnutrition, related to dysphagia. 3. Muscle atrophy, weakness with limited mobility. Plan: Frequent repositioning, avoiding positioning patient on back. Bordered foam dressing, QOD. [id number] mattress. Copy To: Copy MEENAKSHI DAVIS MD Nov 21, 2016 16:30 Objective Exam Last Set of Vital Signs Vital Signs Date Time Temp Pulse Resp B/P Pulse Ox O2 Delivery O2 Flow Rate FiO2 11/21/16 07:41 94 11/21/16 05:58 98.6 67 16 146/60 Room Air Capillary Refill : I&O Bad table Results Lab Laboratory Tests 11/21/16 05:19: Alanine Aminotransferase (ALT/SGPT) 16, Albumin 2.9L, Alkaline Phosphatase 64, Anion Gap 12, Aspartate Amino Transf (AST/SGOT) 19, BUN/Creatinine Ratio 20, Basophils # (Auto) 0.0, Basophils (%) (Auto) 0, Blood Urea Nitrogen 11, Calcium Level 8.1L, Carbon Dioxide Level 22, Chloride Level 104, Creatinine 0.55L, Eosinophils # (Auto) 0.2, Eosinophils (%) (Auto) 2, Estimat Glomerular Filtration Rate > 60, Glucose Level 63L, Hematocrit 25L, Hemoglobin 8.1L, Lymphocytes # (Auto) 1.3, Lymphocytes (%) (Auto) 14, Mean Corpuscular Hemoglobin 29, Mean Corpuscular Hemoglobin Concent 32, Mean Corpuscular Volume 89, Mean Platelet Volume 11.3H, Monocytes # (Auto) 0.9, Monocytes (%) (Auto) 10 , Neutrophils # (Auto) 7.0, Neutrophils (%) (Auto) 74, Platelet Count 191, Potassium Level 3.7, Red Blood Count 2.83L, Red Cell Distribution Width 14.9H, Sodium Level 138, Total Bilirubin 0.7, Total Protein 5.1L, White Blood Count 9.5 Microbiology 11/20/16 Blood Culture - Preliminary, Resulted No growth Assessment/Plan Assessment/Plan Assessment/Plan Assessment/Plan 1. Pressure ulcer, sacral, unstageable. 2. Cachexia, due to malnutrition, related to dysphagia. 3. Muscle atrophy, weakness with limited mobility. Plan: Frequent repositioning, avoiding positioning patient on back. Bordered foam dressing, QOD. [id number] mattress. MEENAKSHI DAVIS MD Nov 21, 2016 16:44
[2016-11-21] MEDS: ALFUZOSIN HCL 10 MG TAB (UROXATRAL) PO SCH (17:09)
[2016-11-21] MEDS ORDERED: ACETAMINOPHEN 325 MG TABLET/CAPLET (TYLENOL) ONE (18:10)
[2016-11-21] MEDS ORDERED: ACETAMINOPHEN 500 MG TAB (TYLENOL) PEG PRN (18:15)
[2016-11-21] MEDS: ACETAMINOPHEN 325 MG TABLET/CAPLET (TYLENOL) PEG PRN (18:29)
[2016-11-21 18:36] VITALS: BP 141/69
--- NOTE | 2016-11-21 18:58 | CONSULTATION REPORT ---
DATE OF CONSULTATION: 11/21/2016 DATE OF ADMISSION: 11/20/2016 REFERRING PHYSICIAN: Mr. Abelardo Grider is a 71-year-old male with a history of degenerative joint disease. He has had issues with lumbar vertebrae requiring open reduction and internal fixation through the anterior and superior approach around 2010. He has also had issues with the cervical spine including requiring a laminectomy as well as C5 corpectomy and C3-C4 and C6-C7 anterior cervical decompression and fusion on 11/17/2016. Since that time, he has had issues with eating and drinking. He has lost weight during the process. 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 The risks and benefits of a percutaneous gastrostomy tube were explained to the patient and he would like to proceed with one for alimentation, medications as well as fluids. PAST MEDICAL HISTORY: 1. BPH. 2. Neurogenic bladder. 3. Urinary retention. 4. Hypertension. 5. COPD. 6. Degenerative joint disease. PAST SURGERIES: 1. Cystoscopy. 2. Catheter placement 09/2016. 3. C5 corpectomy. 4. C3-C4, C6-C7 anterior cervical decompression 11/17/2016. 5. Lumbar ORIF through anterior and posterior approach 1983. 6. Right hip arthroplasty. 7. Placement of suprapubic catheter 10/12/2016. ALLERGIES: 1. Adhesive tape. 2. Morphine. MEDICATIONS: 1. Folic acid 1 mg daily. 2. Thiamine 100 mg daily. 3. Lisinopril 10 mg daily. 4. Pepcid 20 mg b.i.d. 5. Colace 100 mg b.i.d. 6. Pulmicort b.i.d. 7. Uroxatral 10 mg daily. 8. Magnesium 400 mg b.i.d. 9. Zoloft 50 mg daily. 10. DuoNeb t.i.d. 11. Tramadol 100 mg t.i.d. SOCIAL HISTORY: Previous smoke. Previous alcohol. FAMILY HISTORY: Noncontributory. VITAL SIGNS: Temperature 98.6, blood pressure 146/60, pulse 67, respirations 16, pulse oximetry 97% on room air. REVIEW OF SYSTEMS: This is a thin appearing male, currently in no acute distress. He is not experiencing any shortness of breath or difficulty breathing. No chest pain, palpitations, diaphoresis. No nausea or vomiting, with severe dysphagia and inability to swallow liquids and solids. Because of this, he has had recent weight loss. PHYSICAL EXAMINATION: CHEST: Distant breath sounds bilaterally. HEART: Regular. EXTREMITIES: No lower extremity edema. Negative Homans sign. HEENT: No scleral icterus. No cervical lymphadenopathy. ABDOMEN: Soft, nontender, nondistended. ASSESSMENT AND PLAN: 71-year-old male with dysphagia most likely secondary to a neurogenic swallowing mechanism from his recent cervical ORIF. He is in need of long-term alimentation, as well as medications and fluids and will require a percutaneous gastrostomy tube. He is in full understanding of the risks and benefits of the procedure and would like to proceed with the procedure, which we will schedule. Job ID: [id number] Dictated Date: 11/21/2016 11:48:00 Osteopathic Physician Date: 11/21/2016 18:49:27/kae
[2016-11-21] MEDS: BACITRACIN OINTMENT 28 GM TUBE TOP SCH (20:34)
[2016-11-22] MEDS: NS IV 1000 ML 1,000 ML IV SCH (01:16)
[2016-11-22] MEDS: PIPERACILLIN SODIUM/TAZOBACTAM 4.5 GM in NS (IVPB) 100 ML IV SCH ×3 (04:41→20:29)
[2016-11-22 06:00] VITALS: BP 154/67
[2016-11-22] MEDS: MULTIVIT W/MINERALS TAB (THERAGRAN M) PO SCH (06:42)
[2016-11-22] MEDS: MAGNESIUM OXIDE (MAG-OX)400 MG TAB PO SCH (06:42)
[2016-11-22] MEDS: RT-BUDESONIDE NEBS 0.5 MG/2ML (PULMICORT) AMP INH SCH ×2 (07:48→20:24)
[2016-11-22] MEDS: RT-ALBUTEROL/IPRATROPIUM 3 ML (DUONEB) VIAL INH SCH ×2 (07:48→20:24)
--- NOTE | 2016-11-22 08:28 | OPERATIVE REPORT ---
PROCEDURE PHYSICIAN: ROSEANNA AGRAWAL DATE OF ADMISSION: 11/20/2016 DATE OF PROCEDURE: 11/21/2016 ATTENDING PRIMARY CARE PHYSICIAN: Dr. Vishal Bolanos. CONSULTING PHYSICIAN: Dr. Borja. PREOPERATIVE DIAGNOSES: Neurogenic dysphagia and malnutrition. POSTOPERATIVE DIAGNOSIS: 1. Neurogenic dysphagia and malnutrition. 2. Reflux esophagitis, class B. 3. No hiatal hernia. 4. Mild gastritis. 5. And no distal obstructions. PROCEDURE: 1. EGD with biopsy. 2. Percutaneous gastrostomy tube placement. SURGEON: Dr. Agrawal. ANESTHESIA: Conscious sedation and local. ESTIMATED BLOOD LOSS: Minimal. FINDINGS: 1. Reflux esophagitis, class B. 2. No hiatal hernia. 3. Mild gastritis. 4. No distal obstructions. DISPOSITION: The patient tolerated the procedure well. Mr. Abelardo Grider is a 71-year-old male who has had a long-standing history of degenerative joint disease. He has had multiple joint surgeries including lumbar vertebral from the anterior and posterior approach as well as hip and cervical spine surgery x3. His last one was recent. Since that time, he has had significant difficulty including swallowing. He also has a history of neurogenic bladder. He is in rehab and is unable to take in oral liquids and solids and is malnourished. We will proceed with EGD, as well as gastrostomy tube placement. The patient was brought to the endoscopy suite, laid in the left lateral decubitus position. After adequate IV pain and sedative medications and conscious sedation anesthesia, the mouthpiece was applied. The endoscope was placed in the mouth, visualizing the pharynx and hypopharyngeal region. Vocal cords, epiglottis and vallecula identified and appeared to be normal. The endoscope was then gently intubated into the esophagus and the esophagus insufflated. The endoscope was advanced through the first, second, and 3rd portions of the esophagus. At the level of the GE junction a mild reflux esophagitis, class B identified. There were no strictures or ulcers identified in this region. The endoscope was then easily advanced into the stomach and endoscope retroflexed and no hiatal hernia was identified. There was a mild severity gastritis. There were no ulcers, polyps or any neoplasms. A biopsy was taken of the stomach antrum, with visualization of good hemostasis. The endoscope was then advanced through the pylorus and into the first and second portions of the duodenum with no distal obstructions identified. We then proceeded with placement of a percutaneous gastrostomy tube. The light was illuminated along the anterior stomach and visualized due to his body habitus. This was also visibly palpable. This area and epigastric region was then anesthetized including the skin, muscle layers, as well as the stomach using 1% lidocaine. A small transverse skin incision was made using an 11 blade. The needle and sheath were then introduced under direct visualization. The guidewire was then placed under direct visualization and looped through the endoscope and pulled through the mouth. The gastrostomy tube was then placed onto the wire and pulled through intact with minimal resistance. The rubber bolster was firmly abutting the stomach and the external rubber bolster was applied after bacitracin ointment was placed, followed by 2 x 2 sterile gauze. The patient tolerated the procedure well. The gastrostomy tube may be accessed and used at any time. He will also be instructed to keep the area clean and dry and to apply gauze dressing on a b.i.d. as well as p.r.n. basis. Job ID: [id number] Dictated Date: 11/21/2016 14:20:16 Film Reader Date: 11/22/2016 08:15:43 / felicita
[2016-11-22] MEDS: lisINopril 10 MG (PRINIVIL) TAB PO SCH (08:51)
[2016-11-22] MEDS: FOLIC ACID 1 MG TAB PO SCH (08:51)
[2016-11-22] MEDS: THIAMINE 100 MG (VITAMIN B-1) TAB PO SCH (08:51)
[2016-11-22] MEDS: PYRIDOXINE (VITAMIN B-6) 50 MG TABLET PO SCH (08:51)
[2016-11-22] MEDS: CYANOCOBALAMIN 500 MCG TAB (VITAMIN B-12) PO SCH (08:51)
[2016-11-22] MEDS: FAMOTIDINE 20MG/2ML IV (PEPCID) IVP PRN (08:52)
[2016-11-22] MEDS: FAMOTIDINE 20 MG (PEPCID) TABLET PO SCH (08:53)
[2016-11-22] MEDS: DOCUSATE SODIUM 100 MG (COLACE) CAP PO SCH ×2 (09:00→20:30)
[2016-11-22 09:54] LABS: BASOPHILS % (AUTO) 0 % (0-10); EOSINOPHILS # (AUTO) 0.1 10^3/uL (0.0-0.3); EOSINOPHILS % (AUTO) 1 % (0-10); LYMPHOCYTES # (AUTO) 0.8 X 10^3 (1.0-4.0); LYMPHOCYTES % (AUTO) 8 % (12-44); MEAN CORPUSCULAR HEMOGLOBIN 29 PG (25-34); MEAN CORPUSCULAR HGB CONC 33 G/DL (32-36); MEAN CORPUSCULAR VOLUME 88 FL (80-99); MONOCYTES # (AUTO) 0.6 X 10^3 (0.0-1.0); MONOCYTES % (AUTO) 6 % (0-12); NEUTROPHILS # (AUTO) 8.3 X 10^3 (1.8-7.8); NEUTROPHILS % (AUTO) 85 % (42-75); PLATELET COUNT 194 10^3/uL (130-400); RED BLOOD COUNT 2.99 10^6/uL (4.35-5.85); RED CELL DISTRIBUTION WIDTH 14.8 % (10.0-14.5); WHITE BLOOD COUNT 9.7 10^3/uL (4.3-11.0)
[2016-11-22 10:16] LABS: ALANINE AMINOTRANSFERASE 18 U/L (0-55); ALBUMIN 2.7 G/DL (3.2-4.5); ANION GAP 14 MMOL/L (5-14); ASPARTATE AMINO TRANSFERASE 25 U/L (5-34); BILIRUBIN,TOTAL 0.7 MG/DL (0.1-1.0); BLOOD UREA NITROGEN 14 MG/DL (7-18); BUN/CREATININE RATIO 23; CALCIUM 7.6 MG/DL (8.5-10.1); CARBON DIOXIDE 18 MMOL/L (21-32); CHLORIDE 104 MMOL/L (98-107); GFR ESTIMATED > 60; GLUCOSE 163 MG/DL (70-105); POTASSIUM 3.2 MMOL/L (3.6-5.0); SODIUM 136 MMOL/L (135-145); TOTAL PROTEIN 4.9 G/DL (6.4-8.2)
--- NOTE | 2016-11-22 11:29 | Progress Note-Hospitalist ---
Progress Note Progress Notes/Assess & Plan Date Seen 11/22/16 Diagonsis/Assessment & Plan Brothers at the bedside Participating in rehabilitation and doing well Feeding tube placement went uncomplicated by Dr. Agrawal Feeding tube is causing diarrhea so we'll try to find formulation with increase fiber to resolve the issue Very concerned about the epiglottis paralysis and what the next step is and I explained we need to try to strengthen him anyway possible and optimize his nutrition before neurology can have input so we'll support him in any way possible with speech therapy techniques in the meantime Will hep-lock IV fluid No fever, vital signs stable, pale, frail, thin Regular rate and rhythm, clear to auscultation bilaterally crackles in the right lower lobe Assessment: Cervical spine surgery uncomplicated performed by Dr. 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 Agrawal POD # 1 COPD Hypertension BPH with chronic urinary retention and neurogenic bladder requiring indwelling catheter hopefully to DC and future after cervical spine issues resolve Postoperative crackles and rales on right lower lobe with effusion and infiltrate placed on abx empirically to cover for aspiration Zosyn D # 3 Severe debility Plan: NPO Feeding tube nutrition to change to help resolve loose stools Abx Check CXR in am Monitor closely BRIJESH Bledsoe DO Nov 22, 2016 11:29
--- NOTE | 2016-11-22 11:43 | Physical Therapy Daily Note ---
PT Daily Note-Current Subjective Pt supine in bed with head raised upon arrival. Pt agrees to PT but states will need a brief and pants to leave room. Mental Status Patient Orientation: Person, Place, Situation Attachments: Jones Catheter, IV Transfers Functional [place] Measure 0=Not Assessed/NA 4=Minimal Assistance 1=Total Assistance 5=Supervision or Setup 2=Maximal Assistance 6=Modified [place] 3=Moderate Assistance 7=Complete IndependenceIRFPAI Quality Coding Scale 6 Independent with activity with or without an assistive device 5 Patient requires set up or clean up by helper. Patient completes activity by themselves 4 Supervision or touching assist ([facility]). [place] provide cues , steadying assist 3 The helper provides less than half the effort to complete the activity 2 The helper provides more than half the effort to complete the activity 1 Dependent. The helper does all the effort to complete an activity 7 Patient refused to complete or attempt activity 9 The patient did not perform the activity before the current illness or injury 88 Not attempted due to Medical conditions or safety concerns Transfers (B, C, W/C) (FIM): 4 Scootin Rollin Roll Left to Right (QC): 6 Supine to/from Sit: 5 Sit to/from Stand: 4 Sit to Lying (QC): 5 Sit to Stand (QC): 4 Weight Bearing Weight Bearing Restriction: Full Weight Bearing Location Restriction: LE Bilateral Gait Training Does the Patient Walk?: Yes Gait (FIM): 4 Distance (FIM): 3=150 ft Distance: 200' Walk 10 feet (QC): 4 Walk 50 ft with 2 Turns(QC): 4 Walk 150 ft (QC): 4 Gait Level of Assist: 4 Gait Persons Needed: 1 Gait Assistive Device: FWW Pt 's mariano is slow but steady, no LOB. Pt does sway while walking though. Wheelchair Training Does the Pt Use a Wheelchair?: No Exercises Supine Ex: Bridging (To get brief and pants on), Rolling (to assist removing bed pad and clean after incontenence) Treatments Pt rolls side to side so PT and nursing can clean juliet area due to loose BM. Pt bridges to assist PT with donning brief and pants. Pt then transfers from bed at [facility]. Pt ambulates in [facility] using FWW at [facility] for balance and safety. Pt returns to room to rest in recliner with all needs met at end of tx. Assessment Current Status: Fair Progress Pt fatigues easy while ambulating as well as sways while walking. Pt continues to have weakness in BLE. PT Short Term Goals Short Term Goals Time Frame: Dec 04, 2016 Gait (FIM): 5 Distance (FIM): 3=150 ft Gait Distance Comment: 150' Gait Level of Assist: 5 Gait Assistive Device: FWW PT Fpc Goals Forging Die Finisher Goals PT Fpc Goals Time Frame: Dec 18, 2016 Transfers (B,C,W/C) (FIM): 6 Sit to Lying (QC): 5 Lying-Sitting on Side/Bed(QC): 5 Sit to Stand (QC): 5 Rollin Roll Left to Right (QC): 5 Chair/Fvl-tg-Cmxja Xfer(QC): 5 Car Transfer (QC): 5 Does the Patient Walk: Yes Gait (FIM): 6 Gait distance (FIM): 3=150 ft Distance: 150' Walk 10 feet (QC): 5 Walk 10ft-Uneven Surface(QC): 5 Walk 50ft with 2 Turns (QC): 5 Walk 150 ft (QC): 5 Gait Level of Assist: 6 Gait Assistive Device: FWW Stairs (FIM): 2 # of Steps: 4 1 Step (curb) (QC): 5 4 Steps (QC): 5 12 Steps (QC): 9 Stairs Level Of Assist: 5 Picking up an Object (QC): 5 PT Plan Problem List Problem List: Activity Tolerance, Functional Strength, Safety, Balance, Gait, Transfer Treatment/Plan Treatment Plan: Continue Plan of Care Treatment Plan: Bed Mobility, Education, Functional Activity Xochilt, Functional Strength, Group Therapy, Gait, Safety, Therapeutic Exercise, Transfers Treatment Duration: Dec 18, 2016 Visits Per Week: 10-12 Minutes/Day (M-F): 60-90 Minutes/Day (Sat/Lucero): PRN Safety Risks/Education Patient Education: Gait Training, Transfer Techniques, Correct Positioning Teaching Recipient: Patient Teaching Methods: Discussion Response to Teaching: Verbalize Understanding Time/GCodes Time In: 1000 Time Out: 1030 Total Billed Treatment Time: 30 Total Billed Treatment visit, FA (15m) & GT (15m) GARCIA CEJA NETWORK OPERATIONS MANAGER Nov 22, 2016 11:43
[2016-11-22] MEDS: KCL 20 MEQ POWDER FOR ORAL SOLUTION PO SCH (13:04)
[2016-11-22] MEDS: SERTRALINE 50 MG (ZOLOFT) TABLET PEG SCH (13:04)
[2016-11-22] MEDS: BACITRACIN OINTMENT 28 GM TUBE TOP SCH ×2 (13:22→20:33)
[2016-11-22] MEDS: MAGNESIUM OXIDE (MAG-OX)400 MG TAB PEG SCH (16:29)
[2016-11-22] MEDS: ALFUZOSIN HCL 10 MG TAB (UROXATRAL) PO SCH (16:29)
[2016-11-22 18:26] VITALS: BP 101/57
[2016-11-22] MEDS: FAMOTIDINE 20 MG (PEPCID) TABLET PEG SCH (20:29)
--- NOTE | 2016-11-22 21:16 | Progress Note (SOAP) ---
Subjective Subjective/Events-last exam doing ok. pain controlled. g-tube functional. no fever/chills. Objective Exam Vital Signs Date Time Temp Pulse Resp B/P Pulse Ox O2 Delivery O2 Flow Rate FiO2 11/22/16 20:30 93 11/22/16 20:24 92 11/22/16 20:05 Room Air 11/22/16 18:26 99.0 94 18 101/57 95 Room Air 11/22/16 09:00 Room Air 11/22/16 07:48 94 11/22/16 06:00 98.2 65 18 154/67 97 Room Air I & O 11/22/16 07:00 Intake Total 1717 ml Output Total 1700 ml Balance 17 ml Capillary Refill : General Appearance: No Apparent Distress HEENT: PERRL/EOMI Neck: Full Range of Motion Respiratory: Decreased Breath Sounds Cardiovascular: Regular Rate, Rhythm Gastrointestinal: soft other (g-tube intact, no redness/erythemal) Extremity: Normal Capillary Refill Neurologic/Psychiatric: Alert Oriented x3 Skin: Normal Color Lymphatic: No Adenopathy Results Lab Laboratory Tests 11/22/16 09:48: Alanine Aminotransferase (ALT/SGPT) 18, Albumin 2.7L, Alkaline Phosphatase 59, Anion Gap 14, Aspartate Amino Transf (AST/SGOT) 25, BUN/Creatinine Ratio 23, Basophils # (Auto) 0.0, Basophils (%) (Auto) 0, Blood Urea Nitrogen 14, Calcium Level 7.6L, Carbon Dioxide Level 18L, Chloride Level 104, Creatinine 0.60, Eosinophils # (Auto) 0.1, Eosinophils (%) (Auto) 1, Estimat Glomerular Filtration Rate > 60, Glucose Level 163H, Hematocrit 26L, Hemoglobin 8.7L, Lymphocytes # (Auto) 0.8L, Lymphocytes (%) (Auto) 8L, Mean Corpuscular Hemoglobin 29, Mean Corpuscular Hemoglobin Concent 33, Mean Corpuscular Volume 88, Mean Platelet Volume 10.0, Monocytes # (Auto) 0.6, Monocytes (%) (Auto) 6, Neutrophils # (Auto) 8.3H, Neutrophils (%) (Auto) 85H, Platelet Count 194, Potassium Level 3.2L, Red Blood Count 2.99L, Red Cell Distribution Width 14.8H, Sodium Level 136, Total Bilirubin 0.7, Total Protein 4.9L, White Blood Count 9.7 Microbiology 11/20/16 Blood Culture - Preliminary, Resulted No growth Assessment/Plan Assessment/Plan Assess & Plan/Chief Complaint s/p percutaneous gastrostomy tube placement. fever last night however most likely due to pneumonia and atelectasis. WBC normal and feeling better today. Ok to continue to use PEG. Clinical Quality Measures DVT/VTE Risk/Contraindication: Risk Factor Score Per Nursin RFS Level Per Nursing on Admit: 4+=Very High ROSEANNA PHILLIPS MD Nov 22, 2016 9:16 pm
[2016-11-23] MEDS: MAGNESIUM OXIDE (MAG-OX)400 MG TAB PEG SCH ×2 (05:01→17:12)
[2016-11-23] MEDS: PIPERACILLIN SODIUM/TAZOBACTAM 4.5 GM in NS (IVPB) 100 ML IV SCH ×3 (05:01→20:59)
[2016-11-23 05:18] VITALS: BP 135/70
[2016-11-23] MEDS: DOCUSATE SODIUM 100 MG (COLACE) CAP PO SCH ×2 (09:00→21:44)
[2016-11-23] MEDS: FAMOTIDINE 20 MG (PEPCID) TABLET PEG SCH ×2 (09:00→21:44)
[2016-11-23] MEDS: PYRIDOXINE (VITAMIN B-6) 50 MG TABLET PEG SCH (09:17)
[2016-11-23] MEDS: CYANOCOBALAMIN 500 MCG TAB (VITAMIN B-12) PEG SCH (09:17)
[2016-11-23] MEDS: THERAPEUTIC MULTIVITAMINS LIQUID 5 ML UDC PEG SCH (09:17)
[2016-11-23] MEDS: FAMOTIDINE 20MG/2ML IV (PEPCID) IVP PRN (09:17)
[2016-11-23] MEDS: THIAMINE 100 MG (VITAMIN B-1) TAB PEG SCH (09:19)
[2016-11-23] MEDS: lisINopril 10 MG (PRINIVIL) TAB PEG SCH (09:19)
[2016-11-23] MEDS: FOLIC ACID 1 MG TAB PEG SCH (09:19)
[2016-11-23] MEDS: KCL 20 MEQ POWDER FOR ORAL SOLUTION PO SCH (09:20)
[2016-11-23] MEDS: BACITRACIN OINTMENT 28 GM TUBE TOP SCH ×2 (09:20→22:39)
[2016-11-23] MEDS: RT-ALBUTEROL/IPRATROPIUM 3 ML (DUONEB) VIAL INH SCH ×3 (10:45→20:47)
[2016-11-23] MEDS: RT-BUDESONIDE NEBS 0.5 MG/2ML (PULMICORT) AMP INH SCH ×2 (10:45→20:48)
--- NOTE | 2016-11-23 12:27 | Diagnostic Imaging Report ---
INDICATION: Abnormal breath sounds. TECHNIQUE: Two view chest 10:05 AM CORRELATION STUDY: 11/20/2016 FINDINGS: Heart size and vasculature overall relatively stable. Calcification of the aortic arch. Increased markings right lung base could reflect minimal early infiltrate. Small right pleural effusion. Left lung with chronic type change. Upper lung almanza are hyperinflated. Mild pectus excavatum. Surgical spinal fusion hardware with the cervical spine. IMPRESSION: 1. Infiltrate and effusion of the right lung base. Dictated by: Dictated on workstation # [id number]
--- NOTE | 2016-11-23 13:32 | Progress Note-Hospitalist ---
Progress Note Progress Notes/Assess & Plan Date Seen 11/23/16 Diagonsis/Assessment & Plan Brother at the bedside Participating in rehabilitation and doing well Feeding tube is working properly Feeding tube is causing less diarrhea so we will maintain current formulation Very concerned about the epiglottis paralysis and what the next step is and I explained we need to try to strengthen him anyway possible and optimize his nutrition before neurology can have input so we'll support him in any way possible with speech therapy techniques in the meantime 2000 mL of free water will be initiated since hep-locked IV fluid Chest x-ray today stable right lower lobe infiltrate with effusion No fever, vital signs stable, pale, frail, thin Regular rate and rhythm, clear to auscultation bilaterally crackles in the right lower lobe Assessment: Cervical spine surgery uncomplicated performed by Dr. 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 Agrawal POD # 2 COPD Hypertension BPH with chronic urinary retention and neurogenic bladder requiring indwelling catheter hopefully to DC and future after cervical spine issues resolve Postoperative crackles and rales on right lower lobe with effusion and infiltrate placed on abx empirically to cover for aspiration Zosyn D # 4 we'll recheck chest x-ray and labs tomorrow along with a right sided lateral decubitus chest x-ray to evaluate amount of effusion Severe debility Plan: NPO Feeding tube nutrition Abx Check CXR in am Monitor closely Nebs Will confer with Dr. Lee regarding the next step for epiglottis paralysis since he is asking about her neurosurgeon versus neurology BRIJESH DEVINE DO Nov 23, 2016 13:32
[2016-11-23] MEDS: SERTRALINE 50 MG (ZOLOFT) TABLET PEG SCH (14:11)
[2016-11-23] MEDS: ALFUZOSIN HCL 10 MG TAB (UROXATRAL) PO SCH (17:12)
[2016-11-23 18:00] VITALS: BP 127/62
[2016-11-23] MEDS: ACETAMINOPHEN 325 MG TABLET/CAPLET (TYLENOL) PEG PRN (21:44)
[2016-11-24] MEDS: ACETAMINOPHEN 325 MG TABLET/CAPLET (TYLENOL) PEG PRN (03:06)
[2016-11-24] MEDS: PIPERACILLIN SODIUM/TAZOBACTAM 4.5 GM in NS (IVPB) 100 ML IV SCH ×3 (04:50→20:59)
[2016-11-24 05:31] LABS: BASOPHILS % (AUTO) 0 % (0-10); EOSINOPHILS # (AUTO) 0.2 10^3/uL (0.0-0.3); EOSINOPHILS % (AUTO) 4 % (0-10); LYMPHOCYTES # (AUTO) 1.1 X 10^3 (1.0-4.0); LYMPHOCYTES % (AUTO) 18 % (12-44); MEAN CORPUSCULAR HEMOGLOBIN 28 PG (25-34); MEAN CORPUSCULAR HGB CONC 32 G/DL (32-36); MEAN CORPUSCULAR VOLUME 88 FL (80-99); MONOCYTES # (AUTO) 0.5 X 10^3 (0.0-1.0); MONOCYTES % (AUTO) 9 % (0-12); NEUTROPHILS # (AUTO) 4.1 X 10^3 (1.8-7.8); NEUTROPHILS % (AUTO) 69 % (42-75); PLATELET COUNT 181 10^3/uL (130-400); RED BLOOD COUNT 2.82 10^6/uL (4.35-5.85); RED CELL DISTRIBUTION WIDTH 14.5 % (10.0-14.5); WHITE BLOOD COUNT 5.9 10^3/uL (4.3-11.0)
[2016-11-24 05:51] LABS: ALANINE AMINOTRANSFERASE 15 U/L (0-55); ALBUMIN 2.7 G/DL (3.2-4.5); ANION GAP 9 MMOL/L (5-14); ASPARTATE AMINO TRANSFERASE 16 U/L (5-34); BILIRUBIN,TOTAL 0.2 MG/DL (0.1-1.0); BLOOD UREA NITROGEN 10 MG/DL (7-18); BUN/CREATININE RATIO 19; CALCIUM 7.7 MG/DL (8.5-10.1); CARBON DIOXIDE 26 MMOL/L (21-32); CHLORIDE 104 MMOL/L (98-107); CREATININE SERUM 0.52 MG/DL (0.60-1.30); GFR ESTIMATED > 60; GLUCOSE 119 MG/DL (70-105); POTASSIUM 3.5 MMOL/L (3.6-5.0); SODIUM 139 MMOL/L (135-145); TOTAL PROTEIN 4.7 G/DL (6.4-8.2)
[2016-11-24] MEDS: MAGNESIUM OXIDE (MAG-OX)400 MG TAB PEG SCH ×2 (06:28→17:37)
[2016-11-24] MEDS: RT-ALBUTEROL/IPRATROPIUM 3 ML (DUONEB) VIAL INH SCH ×3 (06:28→21:48)
[2016-11-24 06:30] VITALS: BP 139/69
[2016-11-24] MEDS: RT-BUDESONIDE NEBS 0.5 MG/2ML (PULMICORT) AMP INH SCH ×2 (06:31→21:48)
--- NOTE | 2016-11-24 08:18 | Progress Note (SOAP) ---
Subjective Subjective/Events-last exam Still with sore throat, but hands and legs working better. Up with walker, and notes hands are more dexterous. Objective Exam Vital Signs Date Time Temp Pulse Resp B/P Pulse Ox O2 Delivery O2 Flow Rate FiO2 11/24/16 06:35 94 11/24/16 06:30 97.8 74 20 139/69 95 Room Air 11/24/16 06:30 94 11/23/16 21:46 Room Air 11/23/16 20:49 1.00 11/23/16 20:48 94 11/23/16 18:00 99.6 75 16 127/62 96 Room Air 11/23/16 14:41 97.5 11/23/16 14:17 98 11/23/16 09:00 Room Air I & O 11/24/16 07:00 Intake Total 3280 ml Output Total 2750 ml Balance 530 ml Capillary Refill : General Appearance: No Apparent Distress Neck: Supple Other (Incision good) Respiratory: No Accessory Muscle Use No Respiratory Distress Cardiovascular: Regular Rate, Rhythm Neurologic/Psychiatric: Alert Oriented x3 Other (Neuro stable) Results Lab Laboratory Tests 11/24/16 05:23: Alanine Aminotransferase (ALT/SGPT) 15, Albumin 2.7L, Alkaline Phosphatase 53, Anion Gap 9, Aspartate Amino Transf (AST/SGOT) 16, BUN/Creatinine Ratio 19, Basophils # (Auto) 0.0, Basophils (%) (Auto) 0, Blood Urea Nitrogen 10, Calcium Level 7.7L, Carbon Dioxide Level 26, Chloride Level 104, Creatinine 0.52L, Eosinophils # (Auto) 0.2, Eosinophils (%) (Auto) 4, Estimat Glomerular Filtration Rate > 60, Glucose Level 119H, Hematocrit 25L, Hemoglobin 8.0L, Lymphocytes # (Auto) 1.1, Lymphocytes (%) (Auto) 18, Mean Corpuscular Hemoglobin 28, Mean Corpuscular Hemoglobin Concent 32, Mean Corpuscular Volume 88, Mean Platelet Volume 10.0, Monocytes # (Auto) 0.5, Monocytes (%) (Auto) 9, Neutrophils # (Auto) 4.1, Neutrophils (%) (Auto) 69, Platelet Count 181, Potassium Level 3.5L, Red Blood Count 2.82L, Red Cell Distribution Width 14.5, Sodium Level 139, Total Bilirubin 0.2, Total Protein 4.7L, White Blood Count 5.9 Microbiology 11/20/16 Blood Culture - Preliminary, Resulted No growth Assessment/Plan Assessment/Plan Assess & Plan/Chief Complaint Cervical Spondylosis with Myelopathy 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 Discussed with patient, understands it is due to revision surgery and extensive 5 level nature of his disease/treatment. Clinical Quality Measures DVT/VTE Risk/Contraindication: Risk Factor Score Per Nursin RFS Level Per Nursing on Admit: 4+=Very High JUDY MERLOS MD Nov 24, 2016 08:18
--- NOTE | 2016-11-24 08:55 | Physical Therapy Daily Note ---
PT Daily Note-Current Subjective Patient sitting in recliner pre tx, agrees to PT. States he has 6/10 pain in his low back. Appearance Patient in recliner post tx with nurse call, phone, tray, all needs met. Mental Status Patient Orientation: Normal For Age Attachments: Jones Catheter, IV cervical collar Transfers Functional [place] Measure 0=Not Assessed/NA 4=Minimal Assistance 1=Total Assistance 5=Supervision or Setup 2=Maximal Assistance 6=Modified [place] 3=Moderate Assistance 7=Complete IndependenceIRFPAI Quality Coding Scale 6 Independent with activity with or without an assistive device 5 Patient requires set up or clean up by helper. Patient completes activity by themselves 4 Supervision or touching assist ([facility]). [place] provide cues , steadying assist 3 The helper provides less than half the effort to complete the activity 2 The helper provides more than half the effort to complete the activity 1 Dependent. The helper does all the effort to complete an activity 7 Patient refused to complete or attempt activity 9 The patient did not perform the activity before the current illness or injury 88 Not attempted due to Medical conditions or safety concerns Transfers (B, C, W/C) (FIM): 5 Sit to/from Stand: 5 Gait Training Gait (FIM): 5 Distance: 200'x2 Gait Level of Assist: 5 Gait Persons Needed: 1 Gait Assistive Device: FWW weakness on right leg, limps, right knee hyperextension Exercises Standing: Heel/toe raises, Mini squats, Step-ups Standing Reps: 20 NuStep Minutes: 15 NuStep Workload: 4 Treatments transfers, ambulation, functional strengthening Assessment Current Status: Fair Progress Patient could use an AFO on the right side to try to limit his knee hyperextension. PT Short Term Goals Short Term Goals Time Frame: Dec 04, 2016 Gait (FIM): 5 Distance (FIM): 3=150 ft Gait Distance Comment: 150' Gait Level of Assist: 5 Gait Assistive Device: FWW PT Baker Helper Goals Residential Goals PT Residential Goals Time Frame: Dec 18, 2016 Transfers (B,C,W/C) (FIM): 6 Sit to Lying (QC): 5 Lying-Sitting on Side/Bed(QC): 5 Sit to Stand (QC): 5 Rollin Roll Left to Right (QC): 5 Chair/Twf-lz-Vqipz Xfer(QC): 5 Car Transfer (QC): 5 Does the Patient Walk: Yes Gait (FIM): 6 Gait distance (FIM): 3=150 ft Distance: 150' Walk 10 feet (QC): 5 Walk 10ft-Uneven Surface(QC): 5 Walk 50ft with 2 Turns (QC): 5 Walk 150 ft (QC): 5 Gait Level of Assist: 6 Gait Assistive Device: FWW Stairs (FIM): 2 # of Steps: 4 1 Step (curb) (QC): 5 4 Steps (QC): 5 12 Steps (QC): 9 Stairs Level Of Assist: 5 Picking up an Object (QC): 5 PT Plan Problem List Problem List: Activity Tolerance, Functional Strength, Safety, Balance, Gait, Transfer Treatment/Plan Treatment Plan: Continue Plan of Care Treatment Plan: Bed Mobility, Education, Functional Activity Xochilt, Functional Strength, Group Therapy, Gait, Safety, Therapeutic Exercise, Transfers Treatment Duration: Dec 18, 2016 Visits Per Week: 10-12 Minutes/Day (M-F): 60-90 Minutes/Day (Sat/[place]ero): PRN Safety Risks/Education Patient Education: Gait Training, Transfer Techniques, Safety Issues Teaching Recipient: Patient Teaching Methods: Demonstration, Discussion Response to Teaching: Reinforcement Needed Time/GCodes Time In: 805 Time Out: 850 Total Billed Treatment Time: 45 Total Billed Treatment 1 visit GT 15 min EX 30 min DAVIS ZAMARRIPA PT Nov 24, 2016 08:55
[2016-11-24] MEDS: CYANOCOBALAMIN 500 MCG TAB (VITAMIN B-12) PEG SCH (09:47)
[2016-11-24] MEDS: THERAPEUTIC MULTIVITAMINS LIQUID 5 ML UDC PEG SCH (09:47)
[2016-11-24] MEDS: DOCUSATE SODIUM 100 MG (COLACE) CAP PO SCH ×2 (09:47→21:00)
[2016-11-24] MEDS: PYRIDOXINE (VITAMIN B-6) 50 MG TABLET PEG SCH (09:47)
[2016-11-24] MEDS: BACITRACIN OINTMENT 28 GM TUBE TOP SCH ×2 (09:47→21:00)
[2016-11-24] MEDS: FAMOTIDINE 20 MG (PEPCID) TABLET PEG SCH ×2 (09:48→21:00)
[2016-11-24] MEDS: THIAMINE 100 MG (VITAMIN B-1) TAB PEG SCH (09:48)
[2016-11-24] MEDS: lisINopril 10 MG (PRINIVIL) TAB PEG SCH (09:48)
[2016-11-24] MEDS: KCL 20 MEQ POWDER FOR ORAL SOLUTION PO SCH (09:48)
[2016-11-24] MEDS: FOLIC ACID 1 MG TAB PEG SCH (09:48)
--- NOTE | 2016-11-24 10:36 | Occupational Ther Daily Note ---
OT Current Status-Daily Note Subjective Pt sitting in chair, agrees to treatment. Mental Status/Objective Functional Coffee Measure 0=Not Assessed/NA 4=Minimal Assistance 1=Total Assistance 5=Supervision or Setup 2=Maximal Assistance 6=Modified [place] 3=Moderate Assistance 7=Complete Coffee ADL-Treatment Pt requests to wash hair today. Pt does not want to shower today, states he has dry skin and only showers a few days a week because of this. Pt sit to stand with CGA. Gait to restroom with FWW. Assisted pt to wash/dry hair while seated, cervical collar in place to maintain positioning of neck. Cervical collar pads were changed after hair was washed and RN changed dressing on neck. Pt doffed shirt with minimal assistance. Pt able to thread bilateral UE into sleeves, but requires assist to pull shirt over head. Pt combed hair with assistance to reach back of head. Pt declined to change pants, states he has already donned cleaned pants this morning. Instruction provided regarding use of adaptive equipment for doffing/donning socks. Pt doffed socks with SBA and verbal cues using dressing stick. Pt donned socks with minimal assistance and increased time using sock aid. Pt requires increased time for ADL tasks. Pt sitting in chair with needs met and RN present after session. Functional [place] Measure 0=Not Assessed/NA 4=Minimal Assistance 1=Total Assistance 5=Supervision or Setup 2=Maximal Assistance 6=Modified [place] 3=Moderate Assistance 7=Complete IndependenceIRFPAI Quality Coding Scale 6 Independent with activity with or without an assistive device 5 Patient requires set up or clean up by helper. Patient completes activity by themselves 4 Supervision or touching assist (CGA). [place] provide cues , steadying assist 3 The helper provides less than half the effort to complete the activity 2 The helper provides more than half the effort to complete the activity 1 Dependent. The helper does all the effort to complete an activity 7 Patient refused to complete or attempt activity 9 The patient did not perform the activity before the current illness or injury 88 Not attempted due to Medical conditions or safety concerns OT Short Term Goals Short Term Goals Time Frame: Dec 04, 2016 Grooming(FIM): 5 Bathing(FIM): 4 Upper Body Dressing(FIM): 5 Lower Body Dressing(FIM): 4 Toileting(FIM): 3 Toilet/Commode Transfer(FIM): 5 Shower Transfer(FIM): 4 Additional Short Term Goals: 1-Demonstrate ADL Tasks, 2-Verbalize Understanding , 3-ImproveStrength/Xochilt 1=Demonstrate adherence to instructed precautions during ADL tasks. 2=Patient will verbalize/demonstrate understanding of assistive devices/ modifications for ADL. 3=Patient will improve strength/tolerance for activity to enable patient to perform ADL's. OT Usp Goals Casino Assistant Manager Goals Time Frame: Dec 18, 2016 Eating (FIM): 6 Eating (QC): 6 Groomin Oral Hygiene (QC): 6 Bathing(FIM): 5 Shower/Bathe Self (QC): 4 Upper Body Dressing(FIM): 5 Upper Body Dressing (QC): 5 Lower Body Dressing(FIM): 5 Lower Body Dressing (QC): 5 On/Off Footwear (QC): 5 Toileting(FIM): 6 Toileting Hygiene (QC): 6 Toilet/Commode Transfer(FIM): 6 Shower Transfer(FIM): 5 Additional Goals: 1-Demonstrate ADL Tasks, 2-Verbalize Understanding, 3- ImproveStrength/Xochilt 1=Demonstrate adherence to instructed precautions during ADL tasks. 2=Patient will verbalize/demonstrate understanding of assistive devices/ modifications for ADL. 3=Patient will improve strength/tolerance for activity to enable patient to perform ADL's. OT Education/Plan Discharge Recommendations Plan/Recommendations: Continue POC Treatment Plan/Plan of Care Patient would benefit from OT for education, treatment and training to promote independence in ADL's, mobility, safety and/or upper extremity function for ADL' s. Plan of Care: ADL Retraining, Functional Mobility, Group Exercise/Act as Ind, UE Funct Exercise/Act, UE Neuromus Re-Ed/Coord Treatment Duration: Dec 18, 2016 Visits Per Week: 10-12 Minutes/Day (M-F): 60-90 Minutes/Day (Sat/[place]): PRN Agreement: Yes Rehab Potential: Guarded Time/GCodes Start Time: 09:00 Stop Time: 10:00 Total Time Billed (hr/min): 60 Billed Treatment Time 1 visit, ADLx4(60minutes) GEE GOMEZ OT Nov 24, 2016 10:36
--- NOTE | 2016-11-24 10:58 | Speech Therapy Daily Note ---
Speech Daily Progress Note Subjective The patient was seated upright in recliner, C-collar in place upon entrance. The patient greeted the clinician appropriately and agreed to participate in the dysphagia treatment session on this date. Objective Dysphagia Strengthening Exercises: Base of tongue retraction, pharyngeal wall contraction, and laryngeal elevation exercises were initiated and discussed on this date. The patient demonstrated high accuracy with all exercises, completing ten repetitions of each with mild clinician cueing (one initial use of direct modeling). Additionally, the patient's video swallow results were discussed in detail. The patient denied additional questions or concerns regarding the exercises or his recent swallow study at this time. Assessment Assessment Current Status: Good Progress Treatment Plan Continue Plan of Care Communication Comprehension: 5 Expression: 6 Social Cognition Social Interaction: 6 Problem Solvin Memory: 6 Speech Short Term Goals Short Term Goals Short Term Goals 1. The patient will participate in a modified barium swallow to definitively rule out aspiration with all consistencies tested. MET. 2. The patient will demonstrate base of tongue, laryngeal, and pharyngeal strengthening exercises with 90% accuracy, independently. Time Frame-STG: Two Weeks Speech Mcc Goals Mcc Goals 1. The patient will tolerate the least restrictive diet without signs/symptoms of aspiration or laryngeal penetration. 2. The patient will participate in an additional modified barium swallow in approximately six to eight weeks. Time Frame: Six to Eight Weeks Speech-Plan Treatment Plan Speech Therapy Treatment Plan: Continue Plan of Care Continue skilled speech services to target swallowing exercises and maneuvers. Treatment Duration: Jan 01, 2017 # of days/week Five Visits Per Week: Five Minutes/Day (M-F): 30 Rehab Potential: Guarded Safety Risks/Education Teaching Recipient: Patient Teaching Methods: Demonstration, Handout, Discussion Response to Teaching: Return Demonstration, Reinforcement Needed Education Topics Provided: Dysphagia Exercises Time Speech Therapy Time In: 10:00 Speech Therapy Time Out: 10:30 Total Billed Time: 30 Billed Treatment Time 1, GORDON KANG Nov 24, 2016 10:58
--- NOTE | 2016-11-24 12:08 | Diagnostic Imaging Report ---
EXAMINATION: Decubitus chest view. INDICATION: Evaluate for pleural effusion. FINDINGS: The right sided decubitus view demonstrates a small right pleural effusion. A portion of the effusion is probably loculated and relatively thick and is still seen in the base of the right hemithorax. A pulse generator is seen projecting over the upper lumbar spine as well as cervical spine fusion hardware visualized. IMPRESSION: Findings are compatible with a small right pleural effusion. Dictated by: Dictated on workstation # [id number]
--- NOTE | 2016-11-24 12:10 | Diagnostic Imaging Report ---
EXAMINATION: PA and lateral views of the chest. INDICATION: Followup right pleural effusion. COMPARISON: 11/23/2016. FINDINGS: There is a small right pleural effusion and mild patchy infiltrate in the right lung base. The left lung is clear. The heart size is normal. No pneumothorax. The mediastinum and nicolas appear unremarkable. A pulse generator is projecting over the upper lumbar spine. Cervical spine hardware is also seen. IMPRESSION: Mild patchy right basilar infiltrate and small right effusion. Dictated by: Dictated on workstation # [id number]
--- NOTE | 2016-11-24 13:04 | Occupational Ther Daily Note ---
OT Current Status-Daily Note Subjective Pt sitting in chair, agrees to treatment Mental Status/Objective Functional [place] Measure 0=Not Assessed/NA 4=Minimal Assistance 1=Total Assistance 5=Supervision or Setup 2=Maximal Assistance 6=Modified [place] 3=Moderate Assistance 7=Complete [place] ADL-Treatment Functional [place] Measure 0=Not Assessed/NA 4=Minimal Assistance 1=Total Assistance 5=Supervision or Setup 2=Maximal Assistance 6=Modified [place] 3=Moderate Assistance 7=Complete IndependenceIRFPAI Quality Coding Scale 6 Independent with activity with or without an assistive device 5 Patient requires set up or clean up by helper. Patient completes activity by themselves 4 Supervision or touching assist (CGA). [place] provide cues , steadying assist 3 The helper provides less than half the effort to complete the activity 2 The helper provides more than half the effort to complete the activity 1 Dependent. The helper does all the effort to complete an activity 7 Patient refused to complete or attempt activity 9 The patient did not perform the activity before the current illness or injury 88 Not attempted due to Medical conditions or safety concerns Other Treatment Sit to stand with CGA. Gait to therapy gym with FWW, cues for safety. Pt completed peg activity with bilateral hands to increase coordination skills. Pt has difficulty placing pegs into pegboard with right hand, but is able to complete task with increased time. Pt completed fine motor activity with bilateral hands by stringing various sized beads. Pt has decreased ability to manipulate objects with right hand and occasionally drops beads. Pt completed fine motor task with nuts and bolts to increase coordination/manipulation skills. Increased time for activity. Pt returned to room, sitting in chair with needs met after session. OT Short Term Goals Short Term Goals Time Frame: Dec 04, 2016 Grooming(FIM): 5 Bathing(FIM): 4 Upper Body Dressing(FIM): 5 Lower Body Dressing(FIM): 4 Toileting(FIM): 3 Toilet/Commode Transfer(FIM): 5 Shower Transfer(FIM): 4 Additional Short Term Goals: 1-Demonstrate ADL Tasks, 2-Verbalize Understanding , 3-ImproveStrength/Xochilt 1=Demonstrate adherence to instructed precautions during ADL tasks. 2=Patient will verbalize/demonstrate understanding of assistive devices/ modifications for ADL. 3=Patient will improve strength/tolerance for activity to enable patient to perform ADL's. OT Alf Goals Alf Goals Time Frame: Dec 18, 2016 Eating (FIM): 6 Eating (QC): 6 Groomin Oral Hygiene (QC): 6 Bathing(FIM): 5 Shower/Bathe Self (QC): 4 Upper Body Dressing(FIM): 5 Upper Body Dressing (QC): 5 Lower Body Dressing(FIM): 5 Lower Body Dressing (QC): 5 On/Off Footwear (QC): 5 Toileting(FIM): 6 Toileting Hygiene (QC): 6 Toilet/Commode Transfer(FIM): 6 Shower Transfer(FIM): 5 Additional Goals: 1-Demonstrate ADL Tasks, 2-Verbalize Understanding, 3- ImproveStrength/Xochilt 1=Demonstrate adherence to instructed precautions during ADL tasks. 2=Patient will verbalize/demonstrate understanding of assistive devices/ modifications for ADL. 3=Patient will improve strength/tolerance for activity to enable patient to perform ADL's. OT Education/Plan Discharge Recommendations Plan/Recommendations: Continue POC Treatment Plan/Plan of Care Patient would benefit from OT for education, treatment and training to promote independence in ADL's, mobility, safety and/or upper extremity function for ADL' s. Plan of Care: ADL Retraining, Functional Mobility, Group Exercise/Act as Ind, UE Funct Exercise/Act, UE Neuromus Re-Ed/Coord Treatment Duration: Dec 18, 2016 Visits Per Week: 10-12 Minutes/Day (M-F): 60-90 Minutes/Day (Sat/[place]): PRN Agreement: Yes Rehab Potential: Guarded Time/GCodes Start Time: 11:30 Stop Time: 12:00 Total Time Billed (hr/min): 30 Billed Treatment Time 1 visit, FAx2(30minutes) GEE GOMEZ OT Nov 24, 2016 13:04
--- NOTE | 2016-11-24 13:59 | Physical Therapy Daily Note ---
PT Daily Note-Current Subjective Patient in recliner pre tx, agrees to PT, states he has pain of 7/10 in low back. Appearance Patient in recliner post tx with nurse call, phone, tray, all needs met. Mental Status Patient Orientation: Normal For Age Attachments: Jones Catheter, IV Transfers Functional [place] Measure 0=Not Assessed/NA 4=Minimal Assistance 1=Total Assistance 5=Supervision or Setup 2=Maximal Assistance 6=Modified [place] 3=Moderate Assistance 7=Complete IndependenceIRFPAI Quality Coding Scale 6 Independent with activity with or without an assistive device 5 Patient requires set up or clean up by helper. Patient completes activity by themselves 4 Supervision or touching assist (CGA). [place] provide cues , steadying assist 3 The helper provides less than half the effort to complete the activity 2 The helper provides more than half the effort to complete the activity 1 Dependent. The helper does all the effort to complete an activity 7 Patient refused to complete or attempt activity 9 The patient did not perform the activity before the current illness or injury 88 Not attempted due to Medical conditions or safety concerns Transfers (B, C, W/C) (FIM): 5 Sit to/from Stand: 5 Gait Training Gait (FIM): 5 Distance: 500', 200' Gait Level of Assist: 5 Gait Persons Needed: 1 Gait Assistive Device: FWW close SBA, trendelenburg gait, right knee hyperextension Exercises LAQ alternating for 5 min Treatments transfers, ambulation, functional strengthening Assessment Current Status: Fair Progress improving endurance PT Short Term Goals Short Term Goals Time Frame: Dec 04, 2016 Gait (FIM): 5 Distance (FIM): 3=150 ft Gait Distance Comment: 150' Gait Level of Assist: 5 Gait Assistive Device: FWW PT Correction Goals Rubber Boots And Shoes Repairer Goals PT Correction Goals Time Frame: Dec 18, 2016 Transfers (B,C,W/C) (FIM): 6 Sit to Lying (QC): 5 Lying-Sitting on Side/Bed(QC): 5 Sit to Stand (QC): 5 Rollin Roll Left to Right (QC): 5 Chair/Hpl-sp-Obfzw Xfer(QC): 5 Car Transfer (QC): 5 Does the Patient Walk: Yes Gait (FIM): 6 Gait distance (FIM): 3=150 ft Distance: 150' Walk 10 feet (QC): 5 Walk 10ft-Uneven Surface(QC): 5 Walk 50ft with 2 Turns (QC): 5 Walk 150 ft (QC): 5 Gait Level of Assist: 6 Gait Assistive Device: FWW Stairs (FIM): 2 # of Steps: 4 1 Step (curb) (QC): 5 4 Steps (QC): 5 12 Steps (QC): 9 Stairs Level Of Assist: 5 Picking up an Object (QC): 5 PT Plan Problem List Problem List: Activity Tolerance, Functional Strength, Safety, Balance, Gait, Transfer, Bed Mobility, ROM Treatment/Plan Treatment Plan: Continue Plan of Care Treatment Plan: Bed Mobility, Education, Functional Activity Xochilt, Functional Strength, Group Therapy, Gait, Safety, Therapeutic Exercise, Transfers Treatment Duration: Dec 18, 2016 Visits Per Week: 10-12 Minutes/Day (M-F): 60-90 Minutes/Day (Sat/[place]): PRN Safety Risks/Education Patient Education: Gait Training, Transfer Techniques, Safety Issues Teaching Recipient: Patient Teaching Methods: Demonstration, Discussion Response to Teaching: Reinforcement Needed Time/GCodes Time In: 1330 Time Out: 1400 Total Billed Treatment Time: 30 Total Billed Treatment 1 visit GT 30 min DAVIS ZAMARRIPA PT Nov 24, 2016 13:59
[2016-11-24] MEDS: SERTRALINE 50 MG (ZOLOFT) TABLET PEG SCH (15:14)
[2016-11-24] MEDS: ALFUZOSIN HCL 10 MG TAB (UROXATRAL) PO SCH (17:37)
--- NOTE | 2016-11-24 18:04 | PM & R (SOAP) Progress Note ---
Subjective Subjective/Events-last exam Patient was seen in his room earlier today Tolerating Tube feeds well .Appreciate DR Foreman and Tonia notes and orders and current labs and therapy notes Patient remains NPO Bladder managed with Indwelling Jones catheter to DD Objective Exam Last Set of Vital Signs Vital Signs Date Time Temp Pulse Resp B/P Pulse Ox O2 Delivery O2 Flow Rate FiO2 11/24/16 15:30 94 11/24/16 09:00 Room Air 11/24/16 06:30 97.8 74 20 139/69 11/23/16 20:49 1.00 Capillary Refill : I&O Intake and Output 11/24/16 00:00 Intake Total 3520 ml Output Total 1300 ml Balance 2220 ml Intake Oral 0 ml IV Total 100 ml Tube Feeding 2220 ml Other 1200 ml Output Urine Total 1300 ml General: Alert, Oriented X3, Cooperative, No Acute Distress HEENT: Atraumatic, PERRLA, EOMI, Mucous Memb Moist/[place], Other (dysphagia) Neck: Other (Rigid collar in place) Lungs: Clear to Auscultation Heart: Regular Rate Abdomen: Normal Bowel Sounds, Soft, No Tenderness Neuro: Other (decreased sensation to touch in hands and feet Decreased strength in all 4 limbs) Results Lab Laboratory Tests 11/22/16 09:48: Alanine Aminotransferase (ALT/SGPT) 18, Albumin 2.7L, Alkaline Phosphatase 59, Anion Gap 14, Aspartate Amino Transf (AST/SGOT) 25, BUN/Creatinine Ratio 23, Basophils # (Auto) 0.0, Basophils (%) (Auto) 0, Blood Urea Nitrogen 14, Calcium Level 7.6L, Carbon Dioxide Level 18L, Chloride Level 104, Creatinine 0.60, Eosinophils # (Auto) 0.1, Eosinophils (%) (Auto) 1, Estimat Glomerular Filtration Rate > 60, Glucose Level 163H, Hematocrit 26L, Hemoglobin 8.7L, Lymphocytes # (Auto) 0.8L, Lymphocytes (%) (Auto) 8L, Mean Corpuscular Hemoglobin 29, Mean Corpuscular Hemoglobin Concent 33, Mean Corpuscular Volume 88, Mean Platelet Volume 10.0, Monocytes # (Auto) 0.6, Monocytes (%) (Auto) 6, Neutrophils # (Auto) 8.3H, Neutrophils (%) (Auto) 85H, Platelet Count 194, Potassium Level 3.2L, Red Blood Count 2.99L, Red Cell Distribution Width 14.8H, Sodium Level 136, Total Bilirubin 0.7, Total Protein 4.9L, White Blood Count 9.7 11/24/16 05:23: Alanine Aminotransferase (ALT/SGPT) 15, Albumin 2.7L, Alkaline Phosphatase 53, Anion Gap 9, Aspartate Amino Transf (AST/SGOT) 16, BUN/Creatinine Ratio 19, Basophils # (Auto) 0.0, Basophils (%) (Auto) 0, Blood Urea Nitrogen 10, Calcium Level 7.7L, Carbon Dioxide Level 26, Chloride Level 104, Creatinine 0.52L, Eosinophils # (Auto) 0.2, Eosinophils (%) (Auto) 4, Estimat Glomerular Filtration Rate > 60, Glucose Level 119H, Hematocrit 25L, Hemoglobin 8.0L, Lymphocytes # (Auto) 1.1, Lymphocytes (%) (Auto) 18, Mean Corpuscular Hemoglobin 28, Mean Corpuscular Hemoglobin Concent 32, Mean Corpuscular Volume 88, Mean Platelet Volume 10.0, Monocytes # (Auto) 0.5, Monocytes (%) (Auto) 9, Neutrophils # (Auto) 4.1, Neutrophils (%) (Auto) 69, Platelet Count 181, Potassium Level 3.5L, Red Blood Count 2.82L, Red Cell Distribution Width 14.5, Sodium Level 139, Total Bilirubin 0.2, Total Protein 4.7L, White Blood Count 5.9 Microbiology 11/20/16 Blood Culture - Preliminary, Resulted No growth Assessment/Plan Assessment Ambulatory dysfunction secondary to Cervical spondylosis s/p decompression orthospine 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 Neurogenic bladder-managed with Indwelling Jones catheter PTSD HTN controlled HX of tobaccoism Chronic low back pain s/p spinal surgereies in the past Thoracic and abdominal aortic aneurysm monitored by PCP Plan CONtinue PT/OT/ST Continue with Tube feeds F/U with Hospitalist service,Dr Agrawal and Orthospine PRN Team Conference 11/26/16 DAVID MORENO MD Nov 24, 2016 18:04
[2016-11-24 18:13] VITALS: BP 104/61
--- NOTE | 2016-11-24 23:14 | Wound Care Progress Note ---
Subjective Subjective Subjective/Events-last exam 71 year old male with complicated history of spinal difficulties and pressure ulcer of R buttock, improving with current regimen. The patient reports minimal pain in the area. The current dressing is Ravi's Butt paste. PMFSH: No interval change. Review of Systems Pulmonary: No Dyspnea Cardiovascular: No: Chest Pain Objective Exam Last Set of Vital Signs Vital Signs Date Time Temp Pulse Resp B/P Pulse Ox O2 Delivery O2 Flow Rate FiO2 11/24/16 21:53 93 11/24/16 21:00 Room Air 11/24/16 18:13 96.9 89 16 104/61 11/23/16 20:49 1.00 Capillary Refill : I&O Intake and Output 11/24/16 00:00 Intake Total 3520 ml Output Total 1300 ml Balance 2220 ml Intake Oral 0 ml IV Total 100 ml Tube Feeding 2220 ml Other 1200 ml Output Urine Total 1300 ml General: Alert, No Acute Distress Lungs: Normal Air Movement Skin: Other (right buttock wound improved.) Results Lab Laboratory Tests 11/24/16 05:23: Alanine Aminotransferase (ALT/SGPT) 15, Albumin 2.7L, Alkaline Phosphatase 53, Anion Gap 9, Aspartate Amino Transf (AST/SGOT) 16, BUN/Creatinine Ratio 19, Basophils # (Auto) 0.0, Basophils (%) (Auto) 0, Blood Urea Nitrogen 10, Calcium Level 7.7L, Carbon Dioxide Level 26, Chloride Level 104, Creatinine 0.52L, Eosinophils # (Auto) 0.2, Eosinophils (%) (Auto) 4, Estimat Glomerular Filtration Rate > 60, Glucose Level 119H, Hematocrit 25L, Hemoglobin 8.0L, Lymphocytes # (Auto) 1.1, Lymphocytes (%) (Auto) 18, Mean Corpuscular Hemoglobin 28, Mean Corpuscular Hemoglobin Concent 32, Mean Corpuscular Volume 88, Mean Platelet Volume 10.0, Monocytes # (Auto) 0.5, Monocytes (%) (Auto) 9, Neutrophils # (Auto) 4.1, Neutrophils (%) (Auto) 69, Platelet Count 181, Potassium Level 3.5L, Red Blood Count 2.82L, Red Cell Distribution Width 14.5, Sodium Level 139, Total Bilirubin 0.2, Total Protein 4.7L, White Blood Count 5.9 Microbiology 11/20/16 Blood Culture - Preliminary, Resulted No growth Assessment/Plan Assessment/Plan Assessment/Plan 1. Pressure ulcer, right buttock, unstageable. Plan: Continue present dressing. MEENAKSHI DAVIS MD Nov 24, 2016 23:14
[2016-11-25] MEDS: MEPERIDINE (DEMEROL) INJ 50 MG/ML IVP PRN (03:08)
[2016-11-25] MEDS: PIPERACILLIN SODIUM/TAZOBACTAM 4.5 GM in NS (IVPB) 100 ML IV SCH (03:08)
[2016-11-25 05:40] VITALS: BP 127/59
[2016-11-25] MEDS: ACETAMINOPHEN 325 MG TABLET/CAPLET (TYLENOL) PEG PRN (06:37)
[2016-11-25] MEDS: MAGNESIUM OXIDE (MAG-OX)400 MG TAB PEG SCH ×2 (06:37→17:04)
[2016-11-25] MEDS: RT-BUDESONIDE NEBS 0.5 MG/2ML (PULMICORT) AMP INH SCH ×2 (06:48→19:29)
[2016-11-25] MEDS: RT-ALBUTEROL/IPRATROPIUM 3 ML (DUONEB) VIAL INH SCH ×3 (06:48→19:29)
[2016-11-25] MEDS: FOLIC ACID 1 MG TAB PEG SCH (08:37)
[2016-11-25] MEDS: THIAMINE 100 MG (VITAMIN B-1) TAB PEG SCH (08:37)
[2016-11-25] MEDS: PYRIDOXINE (VITAMIN B-6) 50 MG TABLET PEG SCH (08:37)
[2016-11-25] MEDS: CYANOCOBALAMIN 500 MCG TAB (VITAMIN B-12) PEG SCH (08:37)
[2016-11-25] MEDS: THERAPEUTIC MULTIVITAMINS LIQUID 5 ML UDC PEG SCH (08:37)
[2016-11-25] MEDS: DOCUSATE SODIUM 100 MG (COLACE) CAP PO SCH ×2 (08:38→20:55)
[2016-11-25] MEDS: lisINopril 10 MG (PRINIVIL) TAB PEG SCH (08:38)
[2016-11-25] MEDS: KCL 20 MEQ POWDER FOR ORAL SOLUTION PO SCH (08:38)
[2016-11-25] MEDS: FAMOTIDINE 20 MG (PEPCID) TABLET PEG SCH ×2 (08:41→20:54)
[2016-11-25] MEDS: BACITRACIN OINTMENT 28 GM TUBE TOP SCH ×2 (08:41→20:55)
--- NOTE | 2016-11-25 09:20 | Progress Note-Hospitalist ---
Progress Note Progress Notes/Assess & Plan Date Seen 11/25/16 Diagonsis/Assessment & Plan Participating in rehabilitation and doing well Feeding tube is working properly Feeding tube is causing less diarrhea and now slightly constipated so will start Miralax Chest x-ray yesterday stable right lower lobe infiltrate with effusion much improved and not enough fluid to tap Talked to Dr Lee and Dr Angeles yesterday and I appreciate their help No fever, vital signs stable, pale, frail, thin Regular rate and rhythm, clear to auscultation but resolved crackles in the right lower lobe Assessment: Cervical spine surgery uncomplicated performed by Dr. 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 Agrawal POD # 3 COPD Hypertension BPH with chronic urinary retention and neurogenic bladder requiring indwelling catheter hopefully to DC and future after cervical spine issues resolve Postoperative crackles and rales on right lower lobe with effusion and infiltrate placed on abx empirically to cover for aspiration Zosyn D # 5 changing to PO abx Plan: NPO Feeding tube nutrition Abx changed to PO Check CXR in amonitor closely Nebs Will confer with Dr. Lee regarding the next step for epiglottis paralysis since he is asking about her neurosurgeon versus neurology Improved BRIJESH DEVINE DO Nov 25, 2016 09:20
[2016-11-25] MEDS: POLYETHYLENE GLYCOL 17 GM (MIRALAX) PACK PO SCH (11:04)
[2016-11-25] MEDS: AMOX/CLAV 600 MG/5 ML (AUGMENTIN) 75 ML BTL PO SCH ×2 (11:04→20:55)
--- NOTE | 2016-11-25 11:45 | Physical Therapy Daily Note ---
PT Daily Note-Current Subjective Patient in recliner pre tx, agrees to PT, states he has pain of 6-7/10 in his low back. Appearance Patient in recliner post tx with nurse call, phone, tray, all needs met. Mental Status Patient Orientation: Normal For Age Attachments: Jones Catheter cervical collar Transfers Functional [place] Measure 0=Not Assessed/NA 4=Minimal Assistance 1=Total Assistance 5=Supervision or Setup 2=Maximal Assistance 6=Modified [place] 3=Moderate Assistance 7=Complete IndependenceIRFPAI Quality Coding Scale 6 Independent with activity with or without an assistive device 5 Patient requires set up or clean up by helper. Patient completes activity by themselves 4 Supervision or touching assist (CGA). [place] provide cues , steadying assist 3 The helper provides less than half the effort to complete the activity 2 The helper provides more than half the effort to complete the activity 1 Dependent. The helper does all the effort to complete an activity 7 Patient refused to complete or attempt activity 9 The patient did not perform the activity before the current illness or injury 88 Not attempted due to Medical conditions or safety concerns Transfers (B, C, W/C) (FIM): 6 Sit to/from Stand: 6 Gait Training Gait (FIM): 5 Distance: 500'x2 Gait Level of Assist: 5 Gait Persons Needed: 1 Gait Assistive Device: FWW slow ambulation, occasionally will hit obstacles with the wheels on his walker but no LOB Exercises NuStep Minutes: 15 NuStep Workload: 5 Treatments transfers, ambulation, functional strengthening Assessment Current Status: Fair Progress patient progressing well PT Short Term Goals Short Term Goals Time Frame: Dec 04, 2016 Gait (FIM): 5 Distance (FIM): 3=150 ft Gait Distance Comment: 150' Gait Level of Assist: 5 Gait Assistive Device: FWW PT Long-Term Goals Long-Term Goals PT Rubber Curer Goals Time Frame: Dec 18, 2016 Transfers (B,C,W/C) (FIM): 6 Sit to Lying (QC): 5 Lying-Sitting on Side/Bed(QC): 5 Sit to Stand (QC): 5 Rollin Roll Left to Right (QC): 5 Chair/[id number]-Bsuwk Xfer(QC): 5 Car Transfer (QC): 5 Does the Patient Walk: Yes Gait (FIM): 6 Gait distance (FIM): 3=150 ft Distance: 150' Walk 10 feet (QC): 5 Walk 10ft-Uneven Surface(QC): 5 Walk 50ft with 2 Turns (QC): 5 Walk 150 ft (QC): 5 Gait Level of Assist: 6 Gait Assistive Device: FWW Stairs (FIM): 2 # of Steps: 4 1 Step (curb) (QC): 5 4 Steps (QC): 5 12 Steps (QC): 9 Stairs Level Of Assist: 5 Picking up an Object (QC): 5 PT Plan Problem List Problem List: Activity Tolerance, Functional Strength, Safety, Balance, Gait, Transfer Treatment/Plan Treatment Plan: Continue Plan of Care Treatment Plan: Bed Mobility, Education, Functional Activity Xochilt, Functional Strength, Group Therapy, Gait, Safety, Therapeutic Exercise, Transfers Treatment Duration: Dec 18, 2016 Visits Per Week: 10-12 Minutes/Day (M-F): 60-90 Minutes/Day (Sat/[place]ero): PRN Safety Risks/Education Patient Education: Gait Training, Transfer Techniques, Safety Issues Teaching Recipient: Patient Teaching Methods: Demonstration, Discussion Response to Teaching: Reinforcement Needed Time/GCodes Time In: 1100 Time Out: 1145 Total Billed Treatment Time: 45 Total Billed Treatment 1 visit GT 30 min EX 15 min DAVIS ZAMARRIPA PT Nov 25, 2016 11:45
--- NOTE | 2016-11-25 13:30 | PM & R (SOAP) Progress Note ---
Subjective Subjective/Events-last exam Patient was seen in his room this AM Patient SBA for transfers Appreciate DR Foreman notes and current labs and therapy notes Patient tolerating Current Tube feeds well Jones to DD -Chronic Objective Exam Last Set of Vital Signs Vital Signs Date Time Temp Pulse Resp B/P Pulse Ox O2 Delivery O2 Flow Rate FiO2 11/25/16 09:00 Room Air 11/25/16 06:51 91 11/25/16 05:40 97.1 82 16 127/59 11/23/16 20:49 1.00 Capillary Refill : I&O Intake and Output 11/25/16 00:00 Intake Total 3380 ml Output Total 2500 ml Balance 880 ml IV Total 200 ml Tube Feeding 2180 ml Other 1000 ml Output Urine Total 2500 ml General: Alert, Oriented X3, Cooperative, No Acute Distress HEENT: Atraumatic, PERRLA, EOMI, Mucous Memb Moist/[place], Other (dysphagia) Neck: Other (Rigid collar in place) Lungs: Clear to Auscultation Heart: Regular Rate Abdomen: Normal Bowel Sounds, Soft, No Tenderness Neuro: Other (decreased sensation to touch in hands and feet Decreased strength in all 4 limbs) Results Lab Laboratory Tests 11/24/16 05:23: Alanine Aminotransferase (ALT/SGPT) 15, Albumin 2.7L, Alkaline Phosphatase 53, Anion Gap 9, Aspartate Amino Transf (AST/SGOT) 16, BUN/Creatinine Ratio 19, Basophils # (Auto) 0.0, Basophils (%) (Auto) 0, Blood Urea Nitrogen 10, Calcium Level 7.7L, Carbon Dioxide Level 26, Chloride Level 104, Creatinine 0.52L, Eosinophils # (Auto) 0.2, Eosinophils (%) (Auto) 4, Estimat Glomerular Filtration Rate > 60, Glucose Level 119H, Hematocrit 25L, Hemoglobin 8.0L, Lymphocytes # (Auto) 1.1, Lymphocytes (%) (Auto) 18, Mean Corpuscular Hemoglobin 28, Mean Corpuscular Hemoglobin Concent 32, Mean Corpuscular Volume 88, Mean Platelet Volume 10.0, Monocytes # (Auto) 0.5, Monocytes (%) (Auto) 9, Neutrophils # (Auto) 4.1, Neutrophils (%) (Auto) 69, Platelet Count 181, Potassium Level 3.5L, Red Blood Count 2.82L, Red Cell Distribution Width 14.5, Sodium Level 139, Total Bilirubin 0.2, Total Protein 4.7L, White Blood Count 5.9 Microbiology 11/20/16 Blood Culture - Preliminary, Resulted No growth Assessment/Plan Assessment Ambulatory dysfunction secondary to Cervical spondylosis s/p decompression orthospine 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 Neurogenic bladder-managed with Indwelling Jones catheter PTSD HTN controlled HX of tobaccoism Chronic low back pain s/p spinal surgereies in the past Thoracic and abdominal aortic aneurysm monitored by PCP Post-op anemia Plan CONtinue PT/OT/ST Continue with cuurent Tube feeds F/U with Hospitalist service,Dr Agrawal and Orthospine PRN Team Conference tomorrow 11/26/16 DAVID MORENO MD Nov 25, 2016 13:30
--- NOTE | 2016-11-25 13:47 | Occupational Ther Daily Note ---
OT Current Status-Daily Note Subjective Pt in bed, agrees to treatment. Mental Status/Objective Functional [place] Measure 0=Not Assessed/NA 4=Minimal Assistance 1=Total Assistance 5=Supervision or Setup 2=Maximal Assistance 6=Modified [place] 3=Moderate Assistance 7=Complete [place] ADL-Treatment Supine to sit with SBA. Pt declined bathing today, states he will take one tomorrow. Pt doffed shirt with minimal assistance to lime puller head. Donned clean shirt with set up. Pt requires assist to thread bilateral feet into pants , but is then able to stand and pull pants up with minimal assistance for balance. Pt donned bilateral socks with SBA and increased time using sock aid. Occasional cues for proper use of adaptive equipment. Pt combed hair, required assist to comb back of head. Sit to stand with supervision. Gait to restroom with FWW. Pt stood at sink for oral care. Pt brushed upper dentures with SBA. Pt brushed teeth and completed oral care with SBA for standing balance at sink. Functional [place] Measure 0=Not Assessed/NA 4=Minimal Assistance 1=Total Assistance 5=Supervision or Setup 2=Maximal Assistance 6=Modified [place] 3=Moderate Assistance 7=Complete IndependenceIRFPAI Quality Coding Scale 6 Independent with activity with or without an assistive device 5 Patient requires set up or clean up by helper. Patient completes activity by themselves 4 Supervision or touching assist (CGA). [place] provide cues , steadying assist 3 The helper provides less than half the effort to complete the activity 2 The helper provides more than half the effort to complete the activity 1 Dependent. The helper does all the effort to complete an activity 7 Patient refused to complete or attempt activity 9 The patient did not perform the activity before the current illness or injury 88 Not attempted due to Medical conditions or safety concerns Grooming (FIM): 5 Upper Body (FIM): 4 Upper Body Dressing (QC): 3 Other Treatment Gait to therapy gym with FWW and cues for safety. Pt completed graded clothespin activity with bilateral UE to increase isotope hydrologist/pinch strength. Pt has difficulty with right > left. Requires use of gross grasp secondary to weakness. Pt returned to room, sitting in chair with needs met after session. OT Short Term Goals Short Term Goals Time Frame: Dec 04, 2016 Grooming(FIM): 5 Bathing(FIM): 4 Upper Body Dressing(FIM): 5 Lower Body Dressing(FIM): 4 Toileting(FIM): 3 Toilet/Commode Transfer(FIM): 5 Shower Transfer(FIM): 4 Additional Short Term Goals: 1-Demonstrate ADL Tasks, 2-Verbalize Understanding , 3-ImproveStrength/Xochilt 1=Demonstrate adherence to instructed precautions during ADL tasks. 2=Patient will verbalize/demonstrate understanding of assistive devices/ modifications for ADL. 3=Patient will improve strength/tolerance for activity to enable patient to perform ADL's. OT Halfway Goals Halfway Goals Time Frame: Dec 18, 2016 Eating (FIM): 6 Eating (QC): 6 Groomin Oral Hygiene (QC): 6 Bathing(FIM): 5 Shower/Bathe Self (QC): 4 Upper Body Dressing(FIM): 5 Upper Body Dressing (QC): 5 Lower Body Dressing(FIM): 5 Lower Body Dressing (QC): 5 On/Off Footwear (QC): 5 Toileting(FIM): 6 Toileting Hygiene (QC): 6 Toilet/Commode Transfer(FIM): 6 Shower Transfer(FIM): 5 Additional Goals: 1-Demonstrate ADL Tasks, 2-Verbalize Understanding, 3- ImproveStrength/Xochilt 1=Demonstrate adherence to instructed precautions during ADL tasks. 2=Patient will verbalize/demonstrate understanding of assistive devices/ modifications for ADL. 3=Patient will improve strength/tolerance for activity to enable patient to perform ADL's. OT Education/Plan Discharge Recommendations Plan/Recommendations: Continue POC Treatment Plan/Plan of Care Patient would benefit from OT for education, treatment and training to promote independence in ADL's, mobility, safety and/or upper extremity function for ADL' s. Plan of Care: ADL Retraining, Functional Mobility, Group Exercise/Act as Ind, UE Funct Exercise/Act, UE Neuromus Re-Ed/Coord Treatment Duration: Dec 18, 2016 Visits Per Week: 10-12 Minutes/Day (M-F): 60-90 Minutes/Day (Sat/Lucero): PRN Agreement: Yes Rehab Potential: Guarded Time/GCodes Start Time: 09:00 Stop Time: 10:00 Total Time Billed (hr/min): 60 Billed Treatment Time 1 visit, ADLx3(45minutes), EX(15minutes) GEE GOMEZ OT Nov 25, 2016 13:47
[2016-11-25] MEDS: SERTRALINE 50 MG (ZOLOFT) TABLET PEG SCH (14:09)
--- NOTE | 2016-11-25 14:55 | Speech Therapy Daily Note ---
Speech Daily Progress Note Subjective The patient was seated upright in recliner, C-collar in place upon entrance. The patient greeted the clinician appropriately and agreed to participate in the dysphagia treatment session on this date. Objective Dysphagia Strengthening Exercises: Base of tongue retraction, pharyngeal wall contraction, and laryngeal elevation exercises were continued on this date. The patient demonstrated high accuracy with all exercises, completing ten repetitions of each with mild clinician cueing (one initial use of direct modeling). Assessment Assessment Current Status: Good Progress Treatment Plan Continue Plan of Care Communication Comprehension: 5 Expression: 5 Social Cognition Social Interaction: 5 Problem Solvin Memory: 4 Speech Short Term Goals Short Term Goals Short Term Goals 1. The patient will participate in a modified barium swallow to definitively rule out aspiration with all consistencies tested. MET. 2. The patient will demonstrate base of tongue, laryngeal, and pharyngeal strengthening exercises with 90% accuracy, independently. Time Frame-STG: Two Weeks Speech Mcc Goals Mcc Goals 1. The patient will tolerate the least restrictive diet without signs/symptoms of aspiration or laryngeal penetration. 2. The patient will participate in an additional modified barium swallow in approximately six to eight weeks. Time Frame: Six to Eight Weeks Speech-Plan Treatment Plan Speech Therapy Treatment Plan: Continue Plan of Care Continue skilled speech therapy to target dysphagia strengthening exercises. Treatment Duration: Jan 01, 2017 # of days/week Five. Visits Per Week: Five Minutes/Day (M-F): 30 Rehab Potential: Guarded Safety Risks/Education Teaching Recipient: Patient Teaching Methods: Demonstration, Handout, Discussion Response to Teaching: Return Demonstration Education Topics Provided: Dysphagia Exercises Time Speech Therapy Time In: 10:00 Speech Therapy Time Out: 10:30 Total Billed Time: 30 Billed Treatment Time 1KI[facility] 14[facility]
--- NOTE | 2016-11-25 15:48 | Therapy Group Daily Note ---
Therapy Daily Group Note Exercises LE Seated Exercise, UE Exercise, Other (Memorization) Other/Notes Pt ambulated to group using FWW at [facility]. Pt participated in PT/OT group which consists of Introduction (Name, Where you are from & Favorite Place to Visit), Socialization, Memorization Activity, UE/LE Seated Ex as well as Words of [place] and Encouragement. PT actively participated in group by completing EX with group as well as trying to pick matches during Memorization Activity and giving Words of [place]. Pt returned to room to rest at end of tx with all needs met. Start Time: 13:00 Stop Time: 14:10 Total Billed Treatment Time: 70 Total Billed Treatment 1, GRP GARCIA CEJA F[employer] JAVA DEVELOPER Nov 25, 2016 15:48
[2016-11-25] MEDS: ALFUZOSIN HCL 10 MG TAB (UROXATRAL) PO SCH (17:04)
[2016-11-25 18:16] VITALS: BP 117/54
[2016-11-26] MEDS: MEPERIDINE (DEMEROL) INJ 50 MG/ML IVP PRN (04:54)
[2016-11-26] MEDS: MAGNESIUM OXIDE (MAG-OX)400 MG TAB PEG SCH ×2 (06:04→17:47)
[2016-11-26 06:19] VITALS: BP 140/56
[2016-11-26] MEDS: RT-BUDESONIDE NEBS 0.5 MG/2ML (PULMICORT) AMP INH SCH ×2 (06:29→20:39)
[2016-11-26] MEDS: RT-ALBUTEROL/IPRATROPIUM 3 ML (DUONEB) VIAL INH SCH ×3 (06:29→20:39)
[2016-11-26] MEDS: FOLIC ACID 1 MG TAB PEG SCH (08:21)
[2016-11-26] MEDS: KCL 20 MEQ POWDER FOR ORAL SOLUTION PO SCH (08:21)
[2016-11-26] MEDS: CYANOCOBALAMIN 500 MCG TAB (VITAMIN B-12) PEG SCH (08:21)
[2016-11-26] MEDS: PYRIDOXINE (VITAMIN B-6) 50 MG TABLET PEG SCH (08:21)
[2016-11-26] MEDS: THERAPEUTIC MULTIVITAMINS LIQUID 5 ML UDC PEG SCH (08:21)
[2016-11-26] MEDS: lisINopril 10 MG (PRINIVIL) TAB PEG SCH (08:21)
[2016-11-26] MEDS: FAMOTIDINE 20 MG (PEPCID) TABLET PEG SCH ×2 (08:21→21:34)
[2016-11-26] MEDS: DOCUSATE SODIUM 100 MG (COLACE) CAP PO SCH ×2 (08:21→21:33)
[2016-11-26] MEDS: POLYETHYLENE GLYCOL 17 GM (MIRALAX) PACK PO SCH (08:21)
[2016-11-26] MEDS: THIAMINE 100 MG (VITAMIN B-1) TAB PEG SCH (08:21)
--- NOTE | 2016-11-26 08:48 | PM & R (SOAP) Progress Note ---
Subjective Subjective/Events-last exam Patient was seen in his room this AM Patient tolerating tube feeds well Patient dependent for Tube feeds and remains NPO Patient SBA for transfers Objective Exam Last Set of Vital Signs Vital Signs Date Time Temp Pulse Resp B/P Pulse Ox O2 Delivery O2 Flow Rate FiO2 11/26/16 06:31 96 11/26/16 06:19 98.2 85 20 140/56 Room Air 11/23/16 20:49 1.00 Capillary Refill : I&O Intake and Output 11/26/16 00:00 Intake Total 3560 ml Output Total 3250 ml Balance 310 ml Intake Oral 0 ml IV Total 100 ml Tube Feeding 1960 ml Other 1500 ml Output Urine Total 3250 ml General: Alert, Oriented X3, Cooperative, No Acute Distress HEENT: Atraumatic, PERRLA, EOMI, Mucous Memb Moist/[place], Other (dysphagia) Neck: Other (Rigid collar in place) Lungs: Clear to Auscultation Heart: Regular Rate Abdomen: Normal Bowel Sounds, Soft, No Tenderness Neuro: Other (decreased sensation to touch in hands and feet Decreased strength in all 4 limbs) Results Lab Laboratory Tests 11/24/16 05:23: Alanine Aminotransferase (ALT/SGPT) 15, Albumin 2.7L, Alkaline Phosphatase 53, Anion Gap 9, Aspartate Amino Transf (AST/SGOT) 16, BUN/Creatinine Ratio 19, Basophils # (Auto) 0.0, Basophils (%) (Auto) 0, Blood Urea Nitrogen 10, Calcium Level 7.7L, Carbon Dioxide Level 26, Chloride Level 104, Creatinine 0.52L, Eosinophils # (Auto) 0.2, Eosinophils (%) (Auto) 4, Estimat Glomerular Filtration Rate > 60, Glucose Level 119H, Hematocrit 25L, Hemoglobin 8.0L, Lymphocytes # (Auto) 1.1, Lymphocytes (%) (Auto) 18, Mean Corpuscular Hemoglobin 28, Mean Corpuscular Hemoglobin Concent 32, Mean Corpuscular Volume 88, Mean Platelet Volume 10.0, Monocytes # (Auto) 0.5, Monocytes (%) (Auto) 9, Neutrophils # (Auto) 4.1, Neutrophils (%) (Auto) 69, Platelet Count 181, Potassium Level 3.5L, Red Blood Count 2.82L, Red Cell Distribution Width 14.5, Sodium Level 139, Total Bilirubin 0.2, Total Protein 4.7L, White Blood Count 5.9 Microbiology 11/20/16 Blood Culture - Preliminary, Resulted No growth Assessment/Plan Assessment Ambulatory dysfunction secondary to Cervical spondylosis s/p decompression orthospine 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 Neurogenic bladder-managed with Indwelling Jones catheter PTSD HTN controlled HX of tobaccoism Chronic low back pain s/p spinal surgereies in the past Thoracic and abdominal aortic aneurysm monitored by PCP Post-op anemia Plan CONtinue PT/OT/ST Continue with cuurent Tube feeds F/U with Hospitalist service,Dr Agrawal and Orthospine PRN Team Conference later today- 11/26/16-See report for full functional update and POC and DAVID MICHELE MD Nov 26, 2016 08:48
--- NOTE | 2016-11-26 09:44 | Occupational Ther Daily Note ---
OT Current Status-Daily Note Subjective Pt in bed, agrees to treatment. Pt requests shower this morning. Mental Status/Objective Functional [place] Measure 0=Not Assessed/NA 4=Minimal Assistance 1=Total Assistance 5=Supervision or Setup 2=Maximal Assistance 6=Modified [place] 3=Moderate Assistance 7=Complete [place] Attachments: Jones Catheter, PEG Tube ADL-Treatment Supine to sit with supervision. Sit to stand with CGA. Gait to restroom with FWW. Transfer to walk in shower with minimal assistance and skilled cues for safety. Uses grab bar for balance. Pt doffed Depends with minimal assistance. Noted redness on right groin/inner thigh; RN notified. Doffed shirt and socks with SBA. IV and PEG tube covered during shower; cervical collar in place. Pt used hand held shower and long handled sponge for bathing. Pt able to wash bilateral UE, chest, abdomen, bilateral upper legs, and jul[place] area. Uses long handled sponge to wash lower legs and feet. Stood with CGA for balance while washing buttocks. RN present to change dressing on incision. Cervical collar pads changed. Pt donned pullover shirt with minimal assistance. Assist to start Depends and pants over right foot, but pt able to thread left foot into pant leg. Stood with CGA for balance during pant hike. Pt donned socks with minimal assistance using sock aid. Combed hair with minimal assistance to reach back of head. Pt sitting in chair with needs met and RN present after session. Functional [place] Measure 0=Not Assessed/NA 4=Minimal Assistance 1=Total Assistance 5=Supervision or Setup 2=Maximal Assistance 6=Modified [place] 3=Moderate Assistance 7=Complete IndependenceIRFPAI Quality Coding Scale 6 Independent with activity with or without an assistive device 5 Patient requires set up or clean up by helper. Patient completes activity by themselves 4 Supervision or touching assist (CGA). [place] provide cues , steadying assist 3 The helper provides less than half the effort to complete the activity 2 The helper provides more than half the effort to complete the activity 1 Dependent. The helper does all the effort to complete an activity 7 Patient refused to complete or attempt activity 9 The patient did not perform the activity before the current illness or injury 88 Not attempted due to Medical conditions or safety concerns Grooming (FIM): 4 Bathing (FIM): 4 Shower/Bathe Self (QC): 3 Upper Body (FIM): 4 Upper Body Dressing (QC): 3 Lower Body Dressing (FIM): 4 Lower Body Dressing (QC): 3 On/Off Footwear (QC): 3 Shower Transfer(FIM): 4 OT Short Term Goals Short Term Goals Time Frame: Dec 04, 2016 Grooming(FIM): 5 Bathing(FIM): 4 Upper Body Dressing(FIM): 5 Lower Body Dressing(FIM): 4 Toileting(FIM): 3 Toilet/Commode Transfer(FIM): 5 Shower Transfer(FIM): 4 Additional Short Term Goals: 1-Demonstrate ADL Tasks, 2-Verbalize Understanding , 3-ImproveStrength/Xochilt 1=Demonstrate adherence to instructed precautions during ADL tasks. 2=Patient will verbalize/demonstrate understanding of assistive devices/ modifications for ADL. 3=Patient will improve strength/tolerance for activity to enable patient to perform ADL's. OT Collar Tacker Goals Collar Tacker Goals Time Frame: Dec 18, 2016 Eating (FIM): 6 Eating (QC): 6 Groomin Oral Hygiene (QC): 6 Bathing(FIM): 5 Shower/Bathe Self (QC): 4 Upper Body Dressing(FIM): 5 Upper Body Dressing (QC): 5 Lower Body Dressing(FIM): 5 Lower Body Dressing (QC): 5 On/Off Footwear (QC): 5 Toileting(FIM): 6 Toileting Hygiene (QC): 6 Toilet/Commode Transfer(FIM): 6 Shower Transfer(FIM): 5 Additional Goals: 1-Demonstrate ADL Tasks, 2-Verbalize Understanding, 3- ImproveStrength/Xochilt 1=Demonstrate adherence to instructed precautions during ADL tasks. 2=Patient will verbalize/demonstrate understanding of assistive devices/ modifications for ADL. 3=Patient will improve strength/tolerance for activity to enable patient to perform ADL's. OT Education/Plan Discharge Recommendations Plan/Recommendations: Continue POC Treatment Plan/Plan of Care Patient would benefit from OT for education, treatment and training to promote independence in ADL's, mobility, safety and/or upper extremity function for ADL' s. Plan of Care: ADL Retraining, Functional Mobility, Group Exercise/Act as Ind, UE Funct Exercise/Act, UE Neuromus Re-Ed/Coord Treatment Duration: Dec 18, 2016 Visits Per Week: 10-12 Minutes/Day (M-F): 60-90 Minutes/Day (Sat/[place]): PRN Agreement: Yes Rehab Potential: Guarded Time/GCodes Start Time: 08:30 Stop Time: 09:30 Total Time Billed (hr/min): 60 Billed Treatment Time 1 visit, ADLx4(60minutes) GEE GOMEZ OT Nov 26, 2016 09:44
[2016-11-26] MEDS: AMOX/CLAV 600 MG/5 ML (AUGMENTIN) 75 ML BTL PO SCH ×2 (10:01→21:35)
[2016-11-26] MEDS: BACITRACIN OINTMENT 28 GM TUBE TOP SCH ×2 (10:01→21:34)
--- NOTE | 2016-11-26 10:30 | Speech Therapy Daily Note ---
Speech Daily Progress Note Subjective The patient was seated upright in recliner, C-collar in place upon entrance. The patient greeted the clinician appropriately and agreed to participate in the dysphagia treatment session on this date. Per patient, he is experiencing reduced odynophagia and is interested in a repeat swallow. The patient reports less "throat clearing" with oral swabs, as well as, increased overall strength. The clinician agrees to attempt a repeat video swallow prior to discharge. Objective Dysphagia Strengthening Exercises: Base of tongue retraction, pharyngeal wall contraction, and laryngeal elevation exercises were continued on this date. The patient demonstrated high accuracy with all exercises, completing ten repetitions of each with mild clinician cueing (one initial use of direct modeling). Additionally, the patient demonstrated the supra-super glottic swallow with 90% accuracy and mild clinician cueing. Per patient, he has completed the exercises independently during his down time. Assessment Assessment Current Status: Excellent Progress Treatment Plan Continue Plan of Care Communication Comprehension: 5 Expression: 5 Social Cognition Social Interaction: 5 Problem Solvin Memory: 4 Speech Short Term Goals Short Term Goals Short Term Goals 1. The patient will participate in a modified barium swallow to definitively rule out aspiration with all consistencies tested. MET. 2. The patient will demonstrate base of tongue, laryngeal, and pharyngeal strengthening exercises with 90% accuracy, independently. Time Frame-STG: Two Weeks Speech Employee Relations Specialist Goals Fpc Goals 1. The patient will tolerate the least restrictive diet without signs/symptoms of aspiration or laryngeal penetration. 2. The patient will participate in an additional modified barium swallow in approximately six to eight weeks. Time Frame: Six to Eight Weeks Speech-Plan Treatment Plan Speech Therapy Treatment Plan: Continue Plan of Care Continue skilled speech therapy to target dysphagia strengthening exercises and compensatory maneuvers. Treatment Duration: Jan 01, 2017 # of days/week Five. Visits Per Week: Five Minutes/Day (M-F): 30 Rehab Potential: Guarded Safety Risks/Education Teaching Recipient: Patient Teaching Methods: Demonstration, Handout, Discussion Response to Teaching: Return Demonstration Education Topics Provided: Dysphagia Exercises, Swallowing Maneuvers Time Speech Therapy Time In: 09:45 Speech Therapy Time Out: 10:15 Total Billed Time: 30 Billed Treatment Time KIARA Espino ELIZABETH Nov 26, 2016 10:30
--- NOTE | 2016-11-26 11:19 | Physical Therapy Daily Note ---
PT Daily Note-Current Subjective Patient in recliner pre tx, agrees to PT. States his low back pain is worse and rates it at 9/10. Appearance Patient in recliner post tx with nurse call, phone, tray, all needs met. Moist hot pack applied to low back. Mental Status Patient Orientation: Normal For Age Attachments: Jones Catheter Transfers Functional [place] Measure 0=Not Assessed/NA 4=Minimal Assistance 1=Total Assistance 5=Supervision or Setup 2=Maximal Assistance 6=Modified [place] 3=Moderate Assistance 7=Complete IndependenceIRFPAI Quality Coding Scale 6 Independent with activity with or without an assistive device 5 Patient requires set up or clean up by helper. Patient completes activity by themselves 4 Supervision or touching assist (CGA). [place] provide cues , steadying assist 3 The helper provides less than half the effort to complete the activity 2 The helper provides more than half the effort to complete the activity 1 Dependent. The helper does all the effort to complete an activity 7 Patient refused to complete or attempt activity 9 The patient did not perform the activity before the current illness or injury 88 Not attempted due to Medical conditions or safety concerns Transfers (B, C, W/C) (FIM): 5 Sit to/from Stand: 5 Gait Training Gait (FIM): 5 Distance: 500', 150' Gait Level of Assist: 5 Gait Persons Needed: 1 Gait Assistive Device: FWW slow, antalgic, right knee hyperextension and trendelenburg gait Exercises NuStep Minutes: 15 NuStep Workload: 5 Treatments transfers, ambulation, functional strengthening, moist hot pack applied to low back in his recliner Assessment Current Status: Fair Progress improving endurance but also worse back pain, patient needed rest breaks between activities due to back pain PT Short Term Goals Short Term Goals Time Frame: Dec 04, 2016 Gait (FIM): 5 Distance (FIM): 3=150 ft Gait Distance Comment: 150' Gait Level of Assist: 5 Gait Assistive Device: FWW PT Pullman Conductor Goals Pullman Conductor Goals PT Pullman Conductor Goals Time Frame: Dec 18, 2016 Transfers (B,C,W/C) (FIM): 6 Sit to Lying (QC): 5 Lying-Sitting on Side/Bed(QC): 5 Sit to Stand (QC): 5 Rollin Roll Left to Right (QC): 5 Chair/Vjr-uo-Qkasc Xfer(QC): 5 Car Transfer (QC): 5 Does the Patient Walk: Yes Gait (FIM): 6 Gait distance (FIM): 3=150 ft Distance: 150' Walk 10 feet (QC): 5 Walk 10ft-Uneven Surface(QC): 5 Walk 50ft with 2 Turns (QC): 5 Walk 150 ft (QC): 5 Gait Level of Assist: 6 Gait Assistive Device: FWW Stairs (FIM): 2 # of Steps: 4 1 Step (curb) (QC): 5 4 Steps (QC): 5 12 Steps (QC): 9 Stairs Level Of Assist: 5 Picking up an Object (QC): 5 PT Plan Problem List Problem List: Activity Tolerance, Functional Strength, Safety, Balance, Gait, Transfer Treatment/Plan Treatment Plan: Continue Plan of Care Treatment Plan: Bed Mobility, Education, Functional Activity Xochilt, Functional Strength, Group Therapy, Gait, Safety, Therapeutic Exercise, Transfers Treatment Duration: Dec 18, 2016 Visits Per Week: 10-12 Minutes/Day (M-F): 60-90 Minutes/Day (Sat/[place]): PRN Safety Risks/Education Patient Education: Gait Training, Transfer Techniques, Safety Issues Teaching Recipient: Patient Teaching Methods: Demonstration, Discussion Response to Teaching: Reinforcement Needed Time/GCodes Time In: 1030 Time Out: 1115 Total Billed Treatment Time: 45 Total Billed Treatment 1 visit EX 15 min GT 30 min DAVIS ZAMARRIPA PT Nov 26, 2016 11:19
[2016-11-26] MEDS: SERTRALINE 50 MG (ZOLOFT) TABLET PEG SCH (13:55)
--- NOTE | 2016-11-26 14:58 | Therapy Group Daily Note ---
Therapy Daily Group Note Other/Notes Pt able to go sit to stand with FWW. Family present in room. Pt ambulated with FWW to [facility] for OT/PT group. Group consisted of introductions (name , place living, what do you do when spring comes), socialization, word association activity. Pt was able to state introduction appropriately. Pt contributed to discussions on topic. Complete word association well and worked in a group to find the correct answer to questions. After group, pt ambulated to room with SBA using FWW then laid down in bed. Call light/phone in reach. All needs met in room. Start Time: 13:00 Stop Time: 14:15 Total Billed Treatment Time: 75 Total Billed Treatment 1-GRP RENU RICHARDS Nov 26, 2016 14:58
[2016-11-26] MEDS: ALFUZOSIN HCL 10 MG TAB (UROXATRAL) PO SCH (17:47)
[2016-11-26] MEDS: ACETAMINOPHEN 325 MG TABLET/CAPLET (TYLENOL) PEG PRN (17:47)
[2016-11-26 18:02] VITALS: BP 137/64
[2016-11-26] MEDS: NYSTATIN CREAM (MYCOSTATIN) 30 GM TUBE TP SCH (21:34)
[2016-11-27 05:16] VITALS: BP 125/63
[2016-11-27] MEDS: MAGNESIUM OXIDE (MAG-OX)400 MG TAB PEG SCH ×2 (05:36→18:01)
[2016-11-27] MEDS: BACITRACIN OINTMENT 28 GM TUBE TOP SCH ×2 (09:00→20:24)
[2016-11-27] MEDS: POLYETHYLENE GLYCOL 17 GM (MIRALAX) PACK PO SCH (09:00)
[2016-11-27] MEDS: NYSTATIN CREAM (MYCOSTATIN) 30 GM TUBE TP SCH ×3 (09:00→20:23)
--- NOTE | 2016-11-27 09:31 | PM & R (SOAP) Progress Note ---
Subjective Subjective/Events-last exam Patient was seen in his room this AM Tolerating Tube feeds well Patient with fungal groin rash Nystatin ordered Discussed case with RN Patient SBA for transfers and gait Bladder managed with Indwelling Jones catheter to DD- Chronic Objective Exam Last Set of Vital Signs Vital Signs Date Time Temp Pulse Resp B/P Pulse Ox O2 Delivery O2 Flow Rate FiO2 11/27/16 05:16 97.7 71 18 125/63 96 Room Air 11/23/16 20:49 1.00 Capillary Refill : I&O Intake and Output 11/27/16 00:00 Intake Total 2700 ml Output Total 4150 ml Balance -1450 ml Intake Oral 0 ml Tube Feeding 1700 ml Other 1000 ml Output Urine Total 4150 ml General: Alert, Oriented X3, Cooperative, No Acute Distress HEENT: Atraumatic, PERRLA, EOMI, Mucous Memb Moist/[place], Other (dysphagia) Neck: Other (Rigid collar in place) Lungs: Clear to Auscultation Heart: Regular Rate Abdomen: Normal Bowel Sounds, Soft, No Tenderness Neuro: Other (decreased sensation to touch in hands and feet Decreased strength in all 4 limbs) Results Lab Microbiology 11/20/16 Blood Culture - Final, Complete No growth Assessment/Plan Assessment Ambulatory dysfunction secondary to Cervical spondylosis s/p decompression orthospine 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 Neurogenic bladder-managed with Indwelling Jones catheter PTSD HTN controlled HX of tobaccoism Chronic low back pain s/p spinal surgereies in the past Thoracic and abdominal aortic aneurysm monitored by PCP Post-op anemia Fungal groin rash Plan CONtinue PT/OT/ST/Peg Tube and Jones catheter and Skin Care Continue with cuurent Tube feeds F/U with Hospitalist service,Dr Agrawal and Orthospine PRN Team Conference held yesterday- 11/26/16-See report for full functional update and POC and DAVID MICHELE MD Nov 27, 2016 09:31
[2016-11-27] MEDS: KCL 20 MEQ POWDER FOR ORAL SOLUTION PO SCH (09:36)
[2016-11-27] MEDS: FOLIC ACID 1 MG TAB PEG SCH (09:36)
[2016-11-27] MEDS: THIAMINE 100 MG (VITAMIN B-1) TAB PEG SCH (09:36)
[2016-11-27] MEDS: lisINopril 10 MG (PRINIVIL) TAB PEG SCH (09:36)
[2016-11-27] MEDS: THERAPEUTIC MULTIVITAMINS LIQUID 5 ML UDC PEG SCH (09:36)
[2016-11-27] MEDS: PYRIDOXINE (VITAMIN B-6) 50 MG TABLET PEG SCH (09:36)
[2016-11-27] MEDS: FAMOTIDINE 20 MG (PEPCID) TABLET PEG SCH ×2 (09:37→20:23)
[2016-11-27] MEDS: CYANOCOBALAMIN 500 MCG TAB (VITAMIN B-12) PEG SCH (09:37)
[2016-11-27] MEDS: DOCUSATE SODIUM 100 MG (COLACE) CAP PO SCH ×2 (09:37→20:23)
[2016-11-27] MEDS: AMOX/CLAV 600 MG/5 ML (AUGMENTIN) 75 ML BTL PO SCH ×2 (09:39→20:25)
[2016-11-27] MEDS: RT-BUDESONIDE NEBS 0.5 MG/2ML (PULMICORT) AMP INH SCH ×2 (09:46→20:13)
[2016-11-27] MEDS: RT-ALBUTEROL/IPRATROPIUM 3 ML (DUONEB) VIAL INH SCH ×3 (09:46→20:13)
--- NOTE | 2016-11-27 10:27 | Progress Note-Hospitalist ---
Progress Note Progress Notes/Assess & Plan Date Seen 11/27/16 Diagonsis/Assessment & Plan Chart Review: No fever Vitals stable Patient Interview: Pt states that he feels better today. Pt reports normal BMs. Pt states that he has a yeast infection developing in his leg, which is being treated. Physical exam stable. Pt has no requests at this time. No fever, vital signs stable, pale, frail, thin Regular rate and rhythm, clear to auscultation no rales noted Assessment: Cervical spine surgery uncomplicated performed by Dr. Lee POD # 9 Complete dysphagia with aspiration of saliva due to epiglottis paralysis requiring feeding tube placement by Dr. Agrawal POD # 5 COPD Hypertension BPH with chronic urinary retention and neurogenic bladder requiring indwelling catheter hopefully to DC and future after cervical spine issues resolve Postoperative crackles and rales on right lower lobe with effusion and infiltrate placed on abx empirically to cover for aspiration Zosyn with D # 5 changed to PO abx until tomorrow Plan: Swallow test today Check stop date on Augmentin Monitor closely due to developing yeast infection in leg NPO Feeding tube nutrition Nebs Improved DC to home with family on Thursday the Scribed by Talib Walker under the direct supervision of Dr. Devine. BRIJESH DEVINE DO Nov 27, 2016 10:27 BRIJESH DEVINE DO Nov 27, 2016 10:27
--- NOTE | 2016-11-27 10:46 | Physical Therapy Daily Note ---
PT Daily Note-Current Subjective Patient in recliner pre tx, agrees to PT. States he has pain of 9/10 in low back, says the moist hot pack yesterday didn't help much. Appearance Patient in recliner post tx with nurse call, phone, tray, all needs met. Mental Status Patient Orientation: Normal For Age cervical collar Transfers Functional [place] Measure 0=Not Assessed/NA 4=Minimal Assistance 1=Total Assistance 5=Supervision or Setup 2=Maximal Assistance 6=Modified [place] 3=Moderate Assistance 7=Complete IndependenceIRFPAI Quality Coding Scale 6 Independent with activity with or without an assistive device 5 Patient requires set up or clean up by helper. Patient completes activity by themselves 4 Supervision or touching assist (CGA). [place] provide cues , steadying assist 3 The helper provides less than half the effort to complete the activity 2 The helper provides more than half the effort to complete the activity 1 Dependent. The helper does all the effort to complete an activity 7 Patient refused to complete or attempt activity 9 The patient did not perform the activity before the current illness or injury 88 Not attempted due to Medical conditions or safety concerns Transfers (B, C, W/C) (FIM): 6 Sit to/from Stand: 6 Gait Training Gait (FIM): 6 Distance: 300', 500' Gait Assistive Device: FWW slow, right knee hyperextension, trendelenberg gait Exercises Seated Therapy Exercises: Ankle pumps, Hip flexion Seated Reps: 20 Standing: Hip Abduction, Hamstring curls, Heel/toe raises, Marching, Mini squats Standing Reps: 20 LAQ alternating for 5 min Treatments ambulation, transfers, functional strengthening Assessment Current Status: Fair Progress steadily improving general mobility and strength PT Short Term Goals Short Term Goals Time Frame: Dec 04, 2016 Gait (FIM): 5 Distance (FIM): 3=150 ft Gait Distance Comment: 150' Gait Level of Assist: 5 Gait Assistive Device: FWW PT Longterm Goals Longterm Goals PT Rocket Engine Component Mechanic Goals Time Frame: Dec 18, 2016 Transfers (B,C,W/C) (FIM): 6 Sit to Lying (QC): 5 Lying-Sitting on Side/Bed(QC): 5 Sit to Stand (QC): 5 Rollin Roll Left to Right (QC): 5 Chair/Avn-eh-Luexz Xfer(QC): 5 Car Transfer (QC): 5 Does the Patient Walk: Yes Gait (FIM): 6 Gait distance (FIM): 3=150 ft Distance: 150' Walk 10 feet (QC): 5 Walk 10ft-Uneven Surface(QC): 5 Walk 50ft with 2 Turns (QC): 5 Walk 150 ft (QC): 5 Gait Level of Assist: 6 Gait Assistive Device: FWW Stairs (FIM): 2 # of Steps: 4 1 Step (curb) (QC): 5 4 Steps (QC): 5 12 Steps (QC): 9 Stairs Level Of Assist: 5 Picking up an Object (QC): 5 PT Plan Problem List Problem List: Activity Tolerance, Functional Strength, Safety, Balance, Gait, Transfer Treatment/Plan Treatment Plan: Continue Plan of Care Treatment Plan: Bed Mobility, Education, Functional Activity Xochilt, Functional Strength, Group Therapy, Gait, Safety, Therapeutic Exercise, Transfers Treatment Duration: Dec 18, 2016 Visits Per Week: 10-12 Minutes/Day (M-F): 60-90 Minutes/Day (Sat/[place]): PRN Safety Risks/Education Patient Education: Gait Training, Transfer Techniques, Safety Issues Teaching Recipient: Patient Teaching Methods: Demonstration, Discussion Response to Teaching: Reinforcement Needed Time/GCodes Time In: 1000 Time Out: 1045 Total Billed Treatment Time: 45 Total Billed Treatment 1 visit GT 30 min EX 15 min DAVIS ZAMARRIPA PT Nov 27, 2016 10:45
--- NOTE | 2016-11-27 11:25 | ST Mod Barium Swallow ---
Speech Evaluation-General Medical Diagnosis s/p Cervical Spine Surgery Onset Date: Nov 17, 2016 Therapy Diagnosis Therapy Diagnosis: Moderate Pharyngeal Dysphagia Precautions Precautions: Aspiration Precautions/Isolations: Aspiration, Fall Prevention, Standard Precautions, Pressure Ulcer Referral Referring Physician: Dr. Seymour Rivas Reason for Referral: Evaluation/Treatment Modified Barium Swallow Evaluation Medical History Pertinent Medical History: Arthritis, COPD, CVA, HTN Current History The patient was recently admitted to [facility] following a cervical spine surgery. The patient participated in a video swallow on 2016 which revealed aspiration of honey-thick liquid and puree. The patient was placed NPO following the video swallow and a PEG tube was placed on the same date. The patient has remained NPO with total nutrition, hydration, and medication delivered via PEG tube. The patient has participated in dysphagia therapy since admittance. CXR: 11/24/16: Mild patchy right basilar infiltrate and small right effusion. Reviewed History: Yes Social History Current Living Status: Spouse Speech Mod Barium Swallow Prior Level of Function The patient is currently NPO, receiving total nutrition, hydration, and medication via PEG tube. Oral Motor Skills Dentition Natural Dentures: Full Lingual Protrusion: Normal Lingual ROM: Normal Lingual Strength: Normal Velum: Normal Volitional Dry Swallow: Yes Voluntary Cough: Yes Can Clear Throat Volitionally: Yes Textures-Lateral View Lateral View Food Presentation: Thin Liquid via Spoon, Honey Liquid via Spoon, Pureed Solids Oral Phase Labial Closure: No Impairment (WFL) Bolus Formation Pooling L/R: No Impairment (WFL) Bolus Formation Placement: No Impairment (WFL) Solid consistencies deferred secondary to visualized aspiration. A/P Lingual Propulsion: No Impairment (WFL) Lingual Movement: No Impairment (WFL) Oral Phase Residue: No Impairment (WFL) Mild posterior bolus loss was visualized on liquid consistencies (thin liquid, honey-thick liquid) to the level of the laryngeal surface of the epiglottis prior to swallow initiation. Pharyngeal Phase Swallow Response: Mild Impairment (A mild to moderate delay of the pharyngeal phase of swallow was demonstrated, as bolus material reach the laryngeal surface prior to onset.) Base of Tongue: Mild Impairment Epiglottic Movement: Moderate Impairment Laryngeal Elevation: Moderate Impairment Vallecular Residue: Mild Pharyngeal Wall Residue: Mild Piriform Sinus Residue: Moderate Laryngeal Penetration: Moderate (All consistencies tested.) Aspiration Observations: Mild (Thin Liquids, only.) Other Pharyngeal Observations: Mild, deep laryngeal penetration with subsequent aspiration (mild) of thin liquids was observed during and following the swallow. The patient was able to clear the aspirate from the upper airway with a cued throat clear. Mild laryngeal penetration occurred with honey-thick liquid and puree during the swallow and following the swallow secondary to pooled pyriform sinus residue. The patient demonstrated a throat clear is response to the penetrated material, which was efficient at clearing the material from the laryngeal vestibule. Performed-A/P View Not Applicable/Performed Summary/Impressions The patient demonstrated moderate pharyngeal dysphagia (improved from severe pharyngeal dysphagia one week ago) characterized by reduced base of tongue retraction, decreased pharyngeal contractions, reduced hyo-laryngeal excursion, and decreased airway protection in the presence of bolus material. Aspiration occurred with thin liquids during the swallow. Penetrated (honey-thick, puree) and aspirated (thin liquid) material was cleared with a cued and, at times, spontaneous throat clear. The patient has demonstrated an improvement from the prior swallow study with a reduction of aspirated material noted, as well as, increased sensation/response to the aspiration. 1. The patient should continue NPO status. 2. Limited (four to five) bolus trials of puree and honey-thick liquid with speech pathology (only), utilizing the below compensatory strategies. - Teaspoon, only. - Swallow, immediate throat clear, subsequent second dry swallow. 3. Continue excellent oral care. 4. Continue dysphagia exercises with speech pathology. 5. Consider re-evaluation of swallowing function via modified barium swallow in approximately two weeks. Speech Short Term Goals Short Term Goals Short Term Goals 1. The patient will participate in a modified barium swallow to definitively rule out aspiration with all consistencies tested. MET. 2. The patient will demonstrate base of tongue, laryngeal, and pharyngeal strengthening exercises with 90% accuracy, independently. Time Frame-STG: Two Weeks Speech Fpc Goals Fpc Goals 1. The patient will tolerate the least restrictive diet without signs/symptoms of aspiration or laryngeal penetration. 2. The patient will participate in an additional modified barium swallow in approximately six to eight weeks. Time Frame: Six to Eight Weeks Speech-Plan Treatment Plan Speech Therapy Treatment Plan: Continue Plan of Care Continue skilled speech therapy to target dysphagia exercises and maneuvers. Treatment Duration: Jan 01, 2017 # of days/week Five Visits Per Week: Five Minutes/Day (M-F): 30 Rehab Potential: Guarded Safety Risks/Education Teaching Recipient: Patient Teaching Methods: Discussion Response to Teaching: Verbalize Understanding Education Topics Provided: Results, Recommendations Time Speech Therapy Time In: 10:45 Speech Therapy Time Out: 11:15 Total Billed Time: 30 Billed Treatment Time FERNY Espino GORDON DOUGLAS Nov 27, 2016 11:25
--- NOTE | 2016-11-27 11:53 | Occupational Ther Daily Note ---
OT Current Status-Daily Note Subjective Pt in bed, agrees to treatment. Pt reports 6/10 low back pain. Mental Status/Objective Functional [place] Measure 0=Not Assessed/NA 4=Minimal Assistance 1=Total Assistance 5=Supervision or Setup 2=Maximal Assistance 6=Modified [place] 3=Moderate Assistance 7=Complete [place] ADL-Treatment Supine to sit with modified independence. Pt completed partial sponge bath while seated EOB. Don pullover shirt with set up. Pt able to thread bilateral LE into pant legs and stand with SBA for pant hike, using FWW for balance. Pt dons bilateral socks with set up using sock aid. Increased time for dressing tasks. Pt stood at sink to complete oral care. Pt brushed teeth and completed denture care with SBA. Toilet transfer completed with SBA. Pt able to manage clothing and toileting hygiene with SBA. Functional [place] Measure 0=Not Assessed/NA 4=Minimal Assistance 1=Total Assistance 5=Supervision or Setup 2=Maximal Assistance 6=Modified [place] 3=Moderate Assistance 7=Complete IndependenceIRFPAI Quality Coding Scale 6 Independent with activity with or without an assistive device 5 Patient requires set up or clean up by helper. Patient completes activity by themselves 4 Supervision or touching assist (CGA). [place] provide cues , steadying assist 3 The helper provides less than half the effort to complete the activity 2 The helper provides more than half the effort to complete the activity 1 Dependent. The helper does all the effort to complete an activity 7 Patient refused to complete or attempt activity 9 The patient did not perform the activity before the current illness or injury 88 Not attempted due to Medical conditions or safety concerns Grooming (FIM): 5 Oral Hygiene (QC): 5 Upper Body (FIM): 5 Upper Body Dressing (QC): 5 Lower Body Dressing (FIM): 5 Lower Body Dressing (QC): 4 On/Off Footwear (QC): 5 Toileting (FIM): 5 Toileting Hygiene (QC): 4 Toilet/Commode Transfer (FIM): 5 Toilet Transfer (QC): 4 Other Treatment Gait to therapy gym with FWW. Pt completed large peg activity with bilateral hands to increase coordination skills. Pt has occasional difficulty with right hand, but able to complete task without assistance. Putty activity with bilateral hands to increase strength. Pt then removed small beads from putty with increased time. Graded clothespin activity to increase recyclable materials sorter strength. Pt able to complete activity with all levels of resistance using gross grasp and lateral pinch. Pt completed 9-hole peg activity with bilateral hands. Pt has difficulty with right hand and often drops pegs. Pt able to complete with left hand without difficulty. Pt completed fine motor activity with small blocks. Pt able to stack small blocks and copy designs with blocks using bilateral hands. Occasional difficulty with manipulation with right hand, but able to complete activity with increased time. Pt returned to room, transferred to chair with SBA. Sitting with needs met and RT present after session. OT Short Term Goals Short Term Goals Time Frame: Dec 04, 2016 Grooming(FIM): 5 Bathing(FIM): 4 Upper Body Dressing(FIM): 5 Lower Body Dressing(FIM): 4 Toileting(FIM): 3 Toilet/Commode Transfer(FIM): 5 Shower Transfer(FIM): 4 Additional Short Term Goals: 1-Demonstrate ADL Tasks, 2-Verbalize Understanding , 3-ImproveStrength/Xochilt 1=Demonstrate adherence to instructed precautions during ADL tasks. 2=Patient will verbalize/demonstrate understanding of assistive devices/ modifications for ADL. 3=Patient will improve strength/tolerance for activity to enable patient to perform ADL's. OT Alf Goals Alf Goals Time Frame: Dec 18, 2016 Eating (FIM): 6 Eating (QC): 6 Groomin Oral Hygiene (QC): 6 Bathing(FIM): 5 Shower/Bathe Self (QC): 4 Upper Body Dressing(FIM): 5 Upper Body Dressing (QC): 5 Lower Body Dressing(FIM): 5 Lower Body Dressing (QC): 5 On/Off Footwear (QC): 5 Toileting(FIM): 6 Toileting Hygiene (QC): 6 Toilet/Commode Transfer(FIM): 6 Shower Transfer(FIM): 5 Additional Goals: 1-Demonstrate ADL Tasks, 2-Verbalize Understanding, 3- ImproveStrength/Xochilt 1=Demonstrate adherence to instructed precautions during ADL tasks. 2=Patient will verbalize/demonstrate understanding of assistive devices/ modifications for ADL. 3=Patient will improve strength/tolerance for activity to enable patient to perform ADL's. OT Education/Plan Discharge Recommendations Plan/Recommendations: Continue POC Treatment Plan/Plan of Care Patient would benefit from OT for education, treatment and training to promote independence in ADL's, mobility, safety and/or upper extremity function for ADL' s. Plan of Care: ADL Retraining, Functional Mobility, Group Exercise/Act as Ind, UE Funct Exercise/Act, UE Neuromus Re-Ed/Coord Treatment Duration: Dec 18, 2016 Visits Per Week: 10-12 Minutes/Day (M-F): 60-90 Minutes/Day (Sat/[place]): PRN Agreement: Yes Rehab Potential: Guarded Time/GCodes Start Time: 08:15 Stop Time: 09:45 Total Time Billed (hr/min): 90 Billed Treatment Time 1 visit, ADLx3(45minutes), FAx3(45minutes) GEE GOMEZ OT Nov 27, 2016 11:53
--- NOTE | 2016-11-27 12:55 | Diagnostic Imaging Report ---
EXAMINATION: Modified barium swallow. Indication: Dysphagia Different consistencies of fluid and food was given mixed with barium and swallowing was visualized under fluoroscopy. FLUOROSCOPY TIME: One minute and 39 seconds FINDINGS: Aspiration is seen within thin liquids and laryngeal penetration seen with thicker consistency. IMPRESSION: Aspiration is seen with thin liquids.. Please refer to speech therapist's report for additional details . Dictated by: Dictated on workstation # [id number]
[2016-11-27] MEDS: SERTRALINE 50 MG (ZOLOFT) TABLET PEG SCH (13:56)
--- NOTE | 2016-11-27 13:57 | Physical Therapy Daily Note ---
PT Daily Note-Current Subjective Patient in recliner pre tx, agrees to PT, states he has pretty back low back pain at 9/10 and requests a moist hot pack after treatment. Appearance Patient in recliner post tx with nurse call, phone, tray, all needs met. Has moist hot pack on low back, has extra towel if he needs it and instructed to call nursing to take it out if it is too hot or when the heat runs out. Mental Status Patient Orientation: Normal For Age Transfers Functional [place] Measure 0=Not Assessed/NA 4=Minimal Assistance 1=Total Assistance 5=Supervision or Setup 2=Maximal Assistance 6=Modified [place] 3=Moderate Assistance 7=Complete IndependenceIRFPAI Quality Coding Scale 6 Independent with activity with or without an assistive device 5 Patient requires set up or clean up by helper. Patient completes activity by themselves 4 Supervision or touching assist (CGA). [place] provide cues , steadying assist 3 The helper provides less than half the effort to complete the activity 2 The helper provides more than half the effort to complete the activity 1 Dependent. The helper does all the effort to complete an activity 7 Patient refused to complete or attempt activity 9 The patient did not perform the activity before the current illness or injury 88 Not attempted due to Medical conditions or safety concerns Transfers (B, C, W/C) (FIM): 6 Sit to/from Stand: 6 Gait Training Gait (FIM): 5 Distance: 600', 200' Gait Level of Assist: 5 Gait Persons Needed: 1 Gait Assistive Device: FWW slow, right knee hyperextension, trendelenburg gait Exercises NuStep Minutes: 15 NuStep Workload: 5 Treatments ambulation, transfers, functional strengthening Assessment Current Status: Fair Progress improving endurance PT Short Term Goals Short Term Goals Time Frame: Dec 04, 2016 Gait (FIM): 5 Distance (FIM): 3=150 ft Gait Distance Comment: 150' Gait Level of Assist: 5 Gait Assistive Device: FWW PT Senior Care Goals Trash Man Goals PT Senior Care Goals Time Frame: Dec 18, 2016 Transfers (B,C,W/C) (FIM): 6 Sit to Lying (QC): 5 Lying-Sitting on Side/Bed(QC): 5 Sit to Stand (QC): 5 Rollin Roll Left to Right (QC): 5 Chair/Xjl-vq-Aocvf Xfer(QC): 5 Car Transfer (QC): 5 Does the Patient Walk: Yes Gait (FIM): 6 Gait distance (FIM): 3=150 ft Distance: 150' Walk 10 feet (QC): 5 Walk 10ft-Uneven Surface(QC): 5 Walk 50ft with 2 Turns (QC): 5 Walk 150 ft (QC): 5 Gait Level of Assist: 6 Gait Assistive Device: FWW Stairs (FIM): 2 # of Steps: 4 1 Step (curb) (QC): 5 4 Steps (QC): 5 12 Steps (QC): 9 Stairs Level Of Assist: 5 Picking up an Object (QC): 5 PT Plan Problem List Problem List: Activity Tolerance, Functional Strength, Safety, Balance, Gait, Transfer Treatment/Plan Treatment Plan: Continue Plan of Care Treatment Plan: Bed Mobility, Education, Functional Activity Xochilt, Functional Strength, Group Therapy, Gait, Safety, Therapeutic Exercise, Transfers Treatment Duration: Dec 18, 2016 Visits Per Week: 10-12 Minutes/Day (M-F): 60-90 Minutes/Day (Sat/Lucero): PRN Safety Risks/Education Patient Education: Gait Training, Transfer Techniques, Safety Issues Teaching Recipient: Patient Teaching Methods: Demonstration, Discussion Response to Teaching: Reinforcement Needed Time/GCodes Time In: 1325 Time Out: 1355 Total Billed Treatment Time: 30 Total Billed Treatment 1 visit GT 15 min EX 15 min DAVIS ZAMARRIPA PT Nov 27, 2016 13:57
[2016-11-27 18:00] VITALS: BP 126/65
[2016-11-27] MEDS: ALFUZOSIN HCL 10 MG TAB (UROXATRAL) PO SCH (18:01)
--- NOTE | 2016-11-27 22:56 | Wound Care Progress Note ---
Subjective Subjective Subjective/Events-last exam 71 year old male with pressure ulcer of R buttock, improved with off-loading and barrier cream. The patient is planning on being discharged soon. He is instructed to contact the wound center at [facility] or [facility] in [place] following his discharge for ongoing wound care. He lives in [place]. PM F S H: No interval change. Review of Systems Pulmonary: No Dyspnea Cardiovascular: No: Chest Pain Objective Exam Last Set of Vital Signs Vital Signs Date Time Temp Pulse Resp B/P Pulse Ox O2 Delivery O2 Flow Rate FiO2 11/27/16 21:13 Room Air 11/27/16 20:13 92 11/27/16 18:00 98.0 76 18 126/65 11/23/16 20:49 1.00 Capillary Refill : I&O Intake and Output 11/27/16 00:00 Intake Total 2700 ml Output Total 4150 ml Balance -1450 ml Intake Oral 0 ml Tube Feeding 1700 ml Other 1000 ml Output Urine Total 4150 ml General: Alert, No Acute Distress Lungs: Normal Air Movement Skin: Other (right buttock wound improved.) Results Lab Microbiology 11/20/16 Blood Culture - Final, Complete No growth Assessment/Plan Assessment/Plan Assessment/Plan 1. Pressure ulcer, right buttock, unstageable. Plan: Continue same dressings. The patient is to arrange follow-up in one of the wound centers in [place]. EMENAKSHI DAVIS MD Nov 27, 2016 22:56
[2016-11-28] MEDS: MAGNESIUM OXIDE (MAG-OX)400 MG TAB PEG SCH ×2 (05:25→18:03)
[2016-11-28 05:32] VITALS: BP 131/61
[2016-11-28] MEDS: RT-ALBUTEROL/IPRATROPIUM 3 ML (DUONEB) VIAL INH SCH ×3 (07:53→19:56)
[2016-11-28] MEDS: RT-BUDESONIDE NEBS 0.5 MG/2ML (PULMICORT) AMP INH SCH ×2 (07:53→19:56)
[2016-11-28] MEDS: PYRIDOXINE (VITAMIN B-6) 50 MG TABLET PEG SCH (08:03)
[2016-11-28] MEDS: KCL 20 MEQ POWDER FOR ORAL SOLUTION PO SCH (08:03)
[2016-11-28] MEDS: POLYETHYLENE GLYCOL 17 GM (MIRALAX) PACK PO SCH (08:03)
[2016-11-28] MEDS: CYANOCOBALAMIN 500 MCG TAB (VITAMIN B-12) PEG SCH (08:03)
[2016-11-28] MEDS: THIAMINE 100 MG (VITAMIN B-1) TAB PEG SCH (08:03)
[2016-11-28] MEDS: lisINopril 10 MG (PRINIVIL) TAB PEG SCH (08:03)
[2016-11-28] MEDS: THERAPEUTIC MULTIVITAMINS LIQUID 5 ML UDC PEG SCH (08:03)
[2016-11-28] MEDS: FAMOTIDINE 20 MG (PEPCID) TABLET PEG SCH ×2 (08:03→20:53)
[2016-11-28] MEDS: DOCUSATE SODIUM 100 MG (COLACE) CAP PO SCH ×2 (08:03→20:53)
[2016-11-28] MEDS: FOLIC ACID 1 MG TAB PEG SCH (08:03)
[2016-11-28] MEDS: NYSTATIN CREAM (MYCOSTATIN) 30 GM TUBE TP SCH ×3 (08:04→20:54)
[2016-11-28] MEDS: BACITRACIN OINTMENT 28 GM TUBE TOP SCH ×2 (08:04→20:54)
--- NOTE | 2016-11-28 09:16 | PM & R (SOAP) Progress Note ---
Subjective Subjective/Events-last exam Patient was seen in his room this AM Discussed case with ST Patient remains NPO and will need to have f/u with PCP and therapist in [place] re onging medical care and dysphagia RX ST indictae that dysphagia gradually improving Patient tolerating Tube feeds well .Discussed case with SW yesterday and order provide for ongoing Tube feeds at home.Patient Modified Independent for transfers Objective Exam Last Set of Vital Signs Vital Signs Date Time Temp Pulse Resp B/P Pulse Ox O2 Delivery O2 Flow Rate FiO2 11/28/16 08:18 Room Air 11/28/16 07:54 92 11/28/16 05:32 98.0 73 18 131/61 11/23/16 20:49 1.00 Capillary Refill : I&O Intake and Output 11/28/16 00:00 Intake Total 3320 ml Output Total 3800 ml Balance -480 ml Intake Oral 0 ml Tube Feeding 1220 ml Other 2100 ml Output Urine Total 3800 ml # Bowel Movements 1 General: Alert, Oriented X3, Cooperative, No Acute Distress HEENT: Atraumatic, PERRLA, EOMI, Mucous Memb Moist/[place], Other (dysphagia) Neck: Other (Rigid collar in place) Lungs: Clear to Auscultation Heart: Regular Rate Abdomen: Normal Bowel Sounds, Soft, No Tenderness Neuro: Other (decreased sensation to touch in hands and feet Decreased strength in all 4 limbs) Results Lab Microbiology 11/20/16 Blood Culture - Final, Complete No growth Assessment/Plan Assessment Ambulatory dysfunction secondary to Cervical spondylosis s/p decompression orthospine 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 Neurogenic bladder-managed with Indwelling Jones catheter PTSD HTN controlled HX of tobaccoism Chronic low back pain s/p spinal surgereies in the past Thoracic and abdominal aortic aneurysm monitored by PCP Post-op anemia Fungal groin rash Plan CONtinue PT/OT/ST/Peg Tube and Jones catheter and Skin Care Continue with cuurent Tube feeds F/U with Hospitalist service,Dr Agrawal and Orthospine PRN Team Conference held 11/26/16- 11/26/16-See report for full functional update and POC and ELOS Discharge remians tentatively set for Thursday12/01/16 to home with Family F/U with PCP DR [place] Co[place] MD Nov 28, 2016 09:16
--- NOTE | 2016-11-28 09:30 | Occupational Ther Daily Note ---
OT Current Status-Daily Note Subjective Pt in bed, agrees to treatment. Pt reports low back pain, states he just had pain medication. Pt states he arms/hands feel stiff this morning. Mental Status/Objective Functional [place] Measure 0=Not Assessed/NA 4=Minimal Assistance 1=Total Assistance 5=Supervision or Setup 2=Maximal Assistance 6=Modified [place] 3=Moderate Assistance 7=Complete [place] ADL-Treatment Supine to sit with modified independence. Pt declined bathing today. Dressing completed at EOB. Don pullover shirt with set up. Pt requires assist to thread catheter through pant leg, but is then able to don pants with CGA for standing balance during pant hike. Pt donned socks with set up and increased time using sock aid. Sit to stand with minimal assistance. Gait to restroom with FWW. Pt stood at sink for grooming tasks. Pt brushed teeth and combed hair, required CGA for balance. Functional [place] Measure 0=Not Assessed/NA 4=Minimal Assistance 1=Total Assistance 5=Supervision or Setup 2=Maximal Assistance 6=Modified [place] 3=Moderate Assistance 7=Complete IndependenceIRFPAI Quality Coding Scale 6 Independent with activity with or without an assistive device 5 Patient requires set up or clean up by helper. Patient completes activity by themselves 4 Supervision or touching assist (CGA). [place] provide cues , steadying assist 3 The helper provides less than half the effort to complete the activity 2 The helper provides more than half the effort to complete the activity 1 Dependent. The helper does all the effort to complete an activity 7 Patient refused to complete or attempt activity 9 The patient did not perform the activity before the current illness or injury 88 Not attempted due to Medical conditions or safety concerns Grooming (FIM): 4 (CGA) Upper Body (FIM): 5 Upper Body Dressing (QC): 5 Lower Body Dressing (FIM): 4 Lower Body Dressing (QC): 4 On/Off Footwear (QC): 5 Other Treatment Gait to therapy gym with FWW. Pt performed fine motor task stringing beads using bilateral hands to promote increased fine motor control needed for functional tasks. Pt had difficulty with small beads, but is able to complete task with increased time. Pt returned to room, transferred to chair with SBA. Pt sitting in chair with needs met after session. OT Short Term Goals Short Term Goals Time Frame: Dec 04, 2016 Grooming(FIM): 5 Bathing(FIM): 4 Upper Body Dressing(FIM): 5 Lower Body Dressing(FIM): 4 Toileting(FIM): 3 Toilet/Commode Transfer(FIM): 5 Shower Transfer(FIM): 4 Additional Short Term Goals: 1-Demonstrate ADL Tasks, 2-Verbalize Understanding , 3-ImproveStrength/Xochilt 1=Demonstrate adherence to instructed precautions during ADL tasks. 2=Patient will verbalize/demonstrate understanding of assistive devices/ modifications for ADL. 3=Patient will improve strength/tolerance for activity to enable patient to perform ADL's. OT Americanization Teacher Goals Intermediate Goals Time Frame: Dec 18, 2016 Eating (FIM): 6 Eating (QC): 6 Groomin Oral Hygiene (QC): 6 Bathing(FIM): 5 Shower/Bathe Self (QC): 4 Upper Body Dressing(FIM): 5 Upper Body Dressing (QC): 5 Lower Body Dressing(FIM): 5 Lower Body Dressing (QC): 5 On/Off Footwear (QC): 5 Toileting(FIM): 6 Toileting Hygiene (QC): 6 Toilet/Commode Transfer(FIM): 6 Shower Transfer(FIM): 5 Additional Goals: 1-Demonstrate ADL Tasks, 2-Verbalize Understanding, 3- ImproveStrength/Xochilt 1=Demonstrate adherence to instructed precautions during ADL tasks. 2=Patient will verbalize/demonstrate understanding of assistive devices/ modifications for ADL. 3=Patient will improve strength/tolerance for activity to enable patient to perform ADL's. OT Education/Plan Discharge Recommendations Plan/Recommendations: Continue POC Treatment Plan/Plan of Care Patient would benefit from OT for education, treatment and training to promote independence in ADL's, mobility, safety and/or upper extremity function for ADL' s. Plan of Care: ADL Retraining, Functional Mobility, Group Exercise/Act as Ind, UE Funct Exercise/Act, UE Neuromus Re-Ed/Coord Treatment Duration: Dec 18, 2016 Visits Per Week: 10-12 Minutes/Day (M-F): 60-90 Minutes/Day (Sat/Lucero): PRN Agreement: Yes Rehab Potential: Guarded Time/GCodes Start Time: 08:00 Stop Time: 09:00 Total Time Billed (hr/min): 60 Billed Treatment Time 1 visit, ADLx3(40minutes), FA(20minutes) GEE GOMEZ OT Nov 28, 2016 09:30
--- NOTE | 2016-11-28 09:43 | Physical Therapy Daily Note ---
PT Daily Note-Current Subjective Patient in recliner pre tx, agrees to PT, states he has a lot of low back pain today 05/24. Nurse notified and she states he had pain meds just a little while ago and they should be working pretty soon. Discussed with patient about making him independent in his room so he can go to the bathroom by himself, he agrees, nurse notified. Appearance Patient in chair post tx with nurse call, phone, tray, all needs met. Mental Status Attachments: Jones Catheter Transfers Functional [place] Measure 0=Not Assessed/NA 4=Minimal Assistance 1=Total Assistance 5=Supervision or Setup 2=Maximal Assistance 6=Modified [place] 3=Moderate Assistance 7=Complete IndependenceIRFPAI Quality Coding Scale 6 Independent with activity with or without an assistive device 5 Patient requires set up or clean up by helper. Patient completes activity by themselves 4 Supervision or touching assist (CGA). [place] provide cues , steadying assist 3 The helper provides less than half the effort to complete the activity 2 The helper provides more than half the effort to complete the activity 1 Dependent. The helper does all the effort to complete an activity 7 Patient refused to complete or attempt activity 9 The patient did not perform the activity before the current illness or injury 88 Not attempted due to Medical conditions or safety concerns Transfers (B, C, W/C) (FIM): 6 Sit to/from Stand: 6 Gait Training Gait (FIM): 6 Distance: 500', 200' Gait Assistive Device: FWW improving endurance but still right knee hyperextension with ambulation. Patient states he would wear an AFO to help correct that if he could get one. I would recommend he get a custom fit AFO to help with right knee hyperextension and a better heel strike and toe clearance during ambulation. Stair Training Stair Training: Handrails/: 1 handrail Stairs (FIM): 2 #of Steps: 4 Stairs: Pattern: Step to Level of Assist: 4 Min assist, patient can only use the handrail on the right side but he only has one handrail at home. He had a lot of trouble coming down the stairs due to his back pain. Exercises NuStep Minutes: 15 NuStep Workload: 4 Treatments transfers, ambulation, functional strengthening, stair training Assessment Current Status: Fair Progress Patient was able to perform stairs today, he was pretty apprehensive about doing them. He could use a custom fit AFO, will notify social media community manager. PT Short Term Goals Short Term Goals Time Frame: Dec 04, 2016 Gait (FIM): 5 Distance (FIM): 3=150 ft Gait Distance Comment: 150' Gait Level of Assist: 5 Gait Assistive Device: FWW PT Mcfp Goals Fleet Operations Manager Goals PT Mcfp Goals Time Frame: Dec 18, 2016 Transfers (B,C,W/C) (FIM): 6 Sit to Lying (QC): 5 Lying-Sitting on Side/Bed(QC): 5 Sit to Stand (QC): 5 Rollin Roll Left to Right (QC): 5 Chair/Jbp-cu-Ebhst Xfer(QC): 5 Car Transfer (QC): 5 Does the Patient Walk: Yes Gait (FIM): 6 Gait distance (FIM): 3=150 ft Distance: 150' Walk 10 feet (QC): 5 Walk 10ft-Uneven Surface(QC): 5 Walk 50ft with 2 Turns (QC): 5 Walk 150 ft (QC): 5 Gait Level of Assist: 6 Gait Assistive Device: FWW Stairs (FIM): 2 # of Steps: 4 1 Step (curb) (QC): 5 4 Steps (QC): 5 12 Steps (QC): 9 Stairs Level Of Assist: 5 Picking up an Object (QC): 5 PT Plan Problem List Problem List: Activity Tolerance, Functional Strength, Safety, Balance, Gait, Transfer Treatment/Plan Treatment Plan: Continue Plan of Care Treatment Plan: Bed Mobility, Education, Functional Activity Xochilt, Functional Strength, Group Therapy, Gait, Safety, Therapeutic Exercise, Transfers Treatment Duration: Dec 18, 2016 Visits Per Week: 10-12 Minutes/Day (M-F): 60-90 Minutes/Day (Sat/[place]ero): PRN Safety Risks/Education Patient Education: Gait Training, Transfer Techniques, Steps, Safety Issues Teaching Recipient: Patient Teaching Methods: Demonstration, Discussion Response to Teaching: Reinforcement Needed Time/GCodes Time In: 900 Time Out: 945 Total Billed Treatment Time: 45 Total Billed Treatment 1 visit EX 15 min GT 30 min DAVIS ZAMARRIPA PT Nov 28, 2016 09:43
--- NOTE | 2016-11-28 11:15 | Speech Therapy Daily Note ---
Speech Daily Progress Note Subjective The patient was sitting upright in recliner upon entrance. The patient greeted the clinician and agreed to participate in the dysphagia session on this date. Objective Dysphagia Exercises: Base of tongue, pharyngeal, and laryngeal elevation exercises were continued on this date. The patient continues to demonstrate high independence and accuracy while strengthening musculature necessary for a safe and appropriate swallow function. Oral trials of pudding were initiated on this date. The swallow maneuver of swallowing, coughing, swallowing was practice prior to bolus presentation. The patient demonstrated the strategy with high accuracy in isolation and throughout five small teaspoons of pudding. Assessment Assessment Current Status: Good Progress Treatment Plan Continue Plan of Care Communication Comprehension: 5 Expression: 6 Social Cognition Social Interaction: 6 Problem Solvin Memory: 4 Speech Short Term Goals Short Term Goals Short Term Goals 1. The patient will participate in a modified barium swallow to definitively rule out aspiration with all consistencies tested. MET. 2. The patient will demonstrate base of tongue, laryngeal, and pharyngeal strengthening exercises with 90% accuracy, independently. Time Frame-STG: Two Weeks Speech Mcc Goals Project Internship Goals 1. The patient will tolerate the least restrictive diet without signs/symptoms of aspiration or laryngeal penetration. 2. The patient will participate in an additional modified barium swallow in approximately six to eight weeks. Time Frame: Six to Eight Weeks Speech-Plan Treatment Plan Speech Therapy Treatment Plan: Continue Plan of Care Continue skilled speech therapy to target dysphagia exercises. Treatment Duration: Jan 01, 2017 # of days/week Five. Visits Per Week: Five Minutes/Day (M-F): 30 Rehab Potential: Guarded Safety Risks/Education Teaching Recipient: Patient Teaching Methods: Demonstration, Handout, Discussion Response to Teaching: Verbalize Understanding, Return Demonstration Education Topics Provided: Dysphagia Exercises Time Speech Therapy Time In: 10:00 Speech Therapy Time Out: 10:30 Total Billed Time: 30 Billed Treatment Time 1 KIARA GORDON DOUGLAS Nov 28, 2016 11:15
[2016-11-28] MEDS ORDERED: POTA20PA28 PO (12:35)
[2016-11-28] MEDS ORDERED: NYST15CR TP (12:35)
[2016-11-28] MEDS ORDERED: FAMO20TA5 PEG (12:35)
[2016-11-28] MEDS ORDERED: BACI28.4 TOP (12:35)
[2016-11-28] MEDS ORDERED: ACET325T49 PEG (12:35)
[2016-11-28] MEDS ORDERED: FOLI1TAB24 PEG (12:35)
--- NOTE | 2016-11-28 13:20 | Occupational Ther Daily Note ---
OT Current Status-Daily Note Subjective Pt agrees to treatment. Mental Status/Objective Functional [place] Measure 0=Not Assessed/NA 4=Minimal Assistance 1=Total Assistance 5=Supervision or Setup 2=Maximal Assistance 6=Modified [place] 3=Moderate Assistance 7=Complete [place] ADL-Treatment Functional [place] Measure 0=Not Assessed/NA 4=Minimal Assistance 1=Total Assistance 5=Supervision or Setup 2=Maximal Assistance 6=Modified [place] 3=Moderate Assistance 7=Complete IndependenceIRFPAI Quality Coding Scale 6 Independent with activity with or without an assistive device 5 Patient requires set up or clean up by helper. Patient completes activity by themselves 4 Supervision or touching assist (CGA). [place] provide cues , steadying assist 3 The helper provides less than half the effort to complete the activity 2 The helper provides more than half the effort to complete the activity 1 Dependent. The helper does all the effort to complete an activity 7 Patient refused to complete or attempt activity 9 The patient did not perform the activity before the current illness or injury 88 Not attempted due to Medical conditions or safety concerns Other Treatment Sit to stand with supervision. Gait to therapy gym with FWW, no LOB noted. Pt completed putty activity with bilateral hands to increase strength and fine motor coordination. Pt able to remove small beads from putty with increased time. Pt occasionally drops beads secondary to impaired coordination and sensation. Pt completed fine motor activity with nuts and bolts. Pt has difficulty using right hand for task, but is able to completed with increased time. Pt completed 9-hole peg activity with good speed with left hand. Increased time for right hand. Pt returned to room, sitting in chair with needs met after session. OT Short Term Goals Short Term Goals Time Frame: Dec 04, 2016 Grooming(FIM): 5 Bathing(FIM): 4 Upper Body Dressing(FIM): 5 Lower Body Dressing(FIM): 4 Toileting(FIM): 3 Toilet/Commode Transfer(FIM): 5 Shower Transfer(FIM): 4 Additional Short Term Goals: 1-Demonstrate ADL Tasks, 2-Verbalize Understanding , 3-ImproveStrength/Xochilt 1=Demonstrate adherence to instructed precautions during ADL tasks. 2=Patient will verbalize/demonstrate understanding of assistive devices/ modifications for ADL. 3=Patient will improve strength/tolerance for activity to enable patient to perform ADL's. OT Pay Station Attendant Goals Halfway Goals Time Frame: Dec 18, 2016 Eating (FIM): 6 Eating (QC): 6 Groomin Oral Hygiene (QC): 6 Bathing(FIM): 5 Shower/Bathe Self (QC): 4 Upper Body Dressing(FIM): 5 Upper Body Dressing (QC): 5 Lower Body Dressing(FIM): 5 Lower Body Dressing (QC): 5 On/Off Footwear (QC): 5 Toileting(FIM): 6 Toileting Hygiene (QC): 6 Toilet/Commode Transfer(FIM): 6 Shower Transfer(FIM): 5 Additional Goals: 1-Demonstrate ADL Tasks, 2-Verbalize Understanding, 3- ImproveStrength/Xochilt 1=Demonstrate adherence to instructed precautions during ADL tasks. 2=Patient will verbalize/demonstrate understanding of assistive devices/ modifications for ADL. 3=Patient will improve strength/tolerance for activity to enable patient to perform ADL's. OT Education/Plan Discharge Recommendations Plan/Recommendations: Continue POC Treatment Plan/Plan of Care Patient would benefit from OT for education, treatment and training to promote independence in ADL's, mobility, safety and/or upper extremity function for ADL' s. Plan of Care: ADL Retraining, Functional Mobility, Group Exercise/Act as Ind, UE Funct Exercise/Act, UE Neuromus Re-Ed/Coord Treatment Duration: Dec 18, 2016 Visits Per Week: 10-12 Minutes/Day (M-F): 60-90 Minutes/Day (Sat/Lucero): PRN Agreement: Yes Rehab Potential: Guarded Time/GCodes Start Time: 11:30 Stop Time: 12:00 Total Time Billed (hr/min): 30 Billed Treatment Time 1 visit, FAx2(30minutes) GEE GOMEZ OT Nov 28, 2016 13:20
[2016-11-28] MEDS: SERTRALINE 50 MG (ZOLOFT) TABLET PEG SCH (13:22)
--- NOTE | 2016-11-28 13:58 | Physical Therapy Daily Note ---
PT Daily Note-Current Subjective Patient is very agreeable to participate with PT. No c/o. Pain Numeric Pain Scale: 0-No Pain Location: No Pain Reported Mental Status Patient Orientation: Normal For Age Transfers Functional [place] Measure 0=Not Assessed/NA 4=Minimal Assistance 1=Total Assistance 5=Supervision or Setup 2=Maximal Assistance 6=Modified [place] 3=Moderate Assistance 7=Complete IndependenceIRFPAI Quality Coding Scale 6 Independent with activity with or without an assistive device 5 Patient requires set up or clean up by helper. Patient completes activity by themselves 4 Supervision or touching assist (CGA). [place] provide cues , steadying assist 3 The helper provides less than half the effort to complete the activity 2 The helper provides more than half the effort to complete the activity 1 Dependent. The helper does all the effort to complete an activity 7 Patient refused to complete or attempt activity 9 The patient did not perform the activity before the current illness or injury 88 Not attempted due to Medical conditions or safety concerns Transfers (B, C, W/C) (FIM): 5 Scootin Sit to/from Stand: 5 Sit to Stand (QC): 5 Car Transfer (QC): 5 simulated car transfer Gait Training Does the Patient Walk?: Yes Gait (FIM): 5 Distance (FIM): 3=150 ft Distance: 350' x 1; 150' x 1 Walk 10 feet (QC): 5 Walk 50 ft with 2 Turns(QC): 5 Walk 150 ft (QC): 5 Walking 10ft/uneven surface-QC: 5 Gait Level of Assist: 5 Gait Assistive Device: FWW functional gait sequence with FWW Exercises NuStep Minutes: 15 NuStep Workload: 4 Treatments NuStep for reciprocal pattern to improve gait sequence Assessment Current Status: Excellent Progress PT Short Term Goals Short Term Goals Time Frame: Dec 04, 2016 Gait (FIM): 5 Distance (FIM): 3=150 ft Gait Distance Comment: 150' Gait Level of Assist: 5 Gait Assistive Device: FWW PT Long-Term Goals Compensation Advisor Goals PT Compensation Advisor Goals Time Frame: Dec 18, 2016 Transfers (B,C,W/C) (FIM): 6 Sit to Lying (QC): 5 Lying-Sitting on Side/Bed(QC): 5 Sit to Stand (QC): 5 Rollin Roll Left to Right (QC): 5 Chair/Daw-fd-Aoqkg Xfer(QC): 5 Car Transfer (QC): 5 Does the Patient Walk: Yes Gait (FIM): 6 Gait distance (FIM): 3=150 ft Distance: 150' Walk 10 feet (QC): 5 Walk 10ft-Uneven Surface(QC): 5 Walk 50ft with 2 Turns (QC): 5 Walk 150 ft (QC): 5 Gait Level of Assist: 6 Gait Assistive Device: FWW Stairs (FIM): 2 # of Steps: 4 1 Step (curb) (QC): 5 4 Steps (QC): 5 12 Steps (QC): 9 Stairs Level Of Assist: 5 Picking up an Object (QC): 5 PT Plan Treatment/Plan Treatment Plan: Continue Plan of Care Treatment Plan: Bed Mobility, Education, Functional Activity Xochilt, Functional Strength, Group Therapy, Gait, Safety, Therapeutic Exercise, Transfers Treatment Duration: Dec 18, 2016 Visits Per Week: 10-12 Minutes/Day (M-F): 60-90 Minutes/Day (Sat/Lucero): PRN Time/GCodes Time In: 1320 Time Out: 1350 Total Billed Treatment Time: 30 Total Billed Treatment 1 visit EX 15 min GT 15 min GALLITO WOODARD PT Nov 28, 2016 13:58
[2016-11-28 17:23] VITALS: BP 137/56
[2016-11-28] MEDS: ALFUZOSIN HCL 10 MG TAB (UROXATRAL) PO SCH (18:02)
[2016-11-29] MEDS: MEPERIDINE (DEMEROL) INJ 50 MG/ML IVP PRN (02:19)
[2016-11-29 05:28] VITALS: BP 118/55
[2016-11-29] MEDS: MAGNESIUM OXIDE (MAG-OX)400 MG TAB PEG SCH ×2 (06:28→16:30)
[2016-11-29] MEDS: THIAMINE 100 MG (VITAMIN B-1) TAB PEG SCH (08:41)
[2016-11-29] MEDS: THERAPEUTIC MULTIVITAMINS LIQUID 5 ML UDC PEG SCH (08:41)
[2016-11-29] MEDS: FOLIC ACID 1 MG TAB PEG SCH (08:42)
[2016-11-29] MEDS: KCL 20 MEQ POWDER FOR ORAL SOLUTION PO SCH (08:42)
[2016-11-29] MEDS: DOCUSATE SODIUM 100 MG (COLACE) CAP PO SCH ×3 (08:42→20:46)
[2016-11-29] MEDS: lisINopril 10 MG (PRINIVIL) TAB PEG SCH (08:42)
[2016-11-29] MEDS: CYANOCOBALAMIN 500 MCG TAB (VITAMIN B-12) PEG SCH (08:42)
[2016-11-29] MEDS: POLYETHYLENE GLYCOL 17 GM (MIRALAX) PACK PO SCH (08:42)
[2016-11-29] MEDS: PYRIDOXINE (VITAMIN B-6) 50 MG TABLET PEG SCH (08:42)
[2016-11-29] MEDS: FAMOTIDINE 20 MG (PEPCID) TABLET PEG SCH ×2 (08:42→20:46)
[2016-11-29] MEDS: NYSTATIN CREAM (MYCOSTATIN) 30 GM TUBE TP SCH ×3 (09:09→20:47)
[2016-11-29] MEDS: BACITRACIN OINTMENT 28 GM TUBE TOP SCH ×2 (09:09→20:47)
--- NOTE | 2016-11-29 10:04 | Physical Therapy Daily Note ---
PT Daily Note-Current Subjective Pt. in bed and agrees to therapy. He has no c/o pain. Mental Status Patient Orientation: Person, Place, Time, Situation cervical collar Transfers Functional [place] Measure 0=Not Assessed/NA 4=Minimal Assistance 1=Total Assistance 5=Supervision or Setup 2=Maximal Assistance 6=Modified [place] 3=Moderate Assistance 7=Complete IndependenceIRFPAI Quality Coding Scale 6 Independent with activity with or without an assistive device 5 Patient requires set up or clean up by helper. Patient completes activity by themselves 4 Supervision or touching assist (CGA). [place] provide cues , steadying assist 3 The helper provides less than half the effort to complete the activity 2 The helper provides more than half the effort to complete the activity 1 Dependent. The helper does all the effort to complete an activity 7 Patient refused to complete or attempt activity 9 The patient did not perform the activity before the current illness or injury 88 Not attempted due to Medical conditions or safety concerns Transfers (B, C, W/C) (FIM): 6 Supine to/from Sit: 6 Sit to/from Stand: 6 SBA to don pants at EOB Gait Training Does the Patient Walk?: Yes Gait (FIM): 6 Distance (FIM): 3=150 ft Distance: 500 ft Gait Level of Assist: 6 Gait Assistive Device: FWW pt. is steady with ambulation Exercises NuStep Minutes: 10 NuStep Workload: 4 Treatments gait training, Nustep Assessment Current Status: Good Progress Pt. continues to be mod (I) with all transfers and gait. He did well with Nustep to improve aerobic capacity for return home. Pt. up in chair post session with call light and all needs met. PT Short Term Goals Short Term Goals Time Frame: Dec 04, 2016 Gait (FIM): 5 Distance (FIM): 3=150 ft Gait Distance Comment: 150' Gait Level of Assist: 5 Gait Assistive Device: FWW PT Financial Consultant Goals Jail Goals PT Jail Goals Time Frame: Dec 18, 2016 Transfers (B,C,W/C) (FIM): 6 Sit to Lying (QC): 5 Lying-Sitting on Side/Bed(QC): 5 Sit to Stand (QC): 5 Rollin Roll Left to Right (QC): 5 Chair/Wbo-pc-Csvze Xfer(QC): 5 Car Transfer (QC): 5 Does the Patient Walk: Yes Gait (FIM): 6 Gait distance (FIM): 3=150 ft Distance: 150' Walk 10 feet (QC): 5 Walk 10ft-Uneven Surface(QC): 5 Walk 50ft with 2 Turns (QC): 5 Walk 150 ft (QC): 5 Gait Level of Assist: 6 Gait Assistive Device: FWW Stairs (FIM): 2 # of Steps: 4 1 Step (curb) (QC): 5 4 Steps (QC): 5 12 Steps (QC): 9 Stairs Level Of Assist: 5 Picking up an Object (QC): 5 PT Plan Treatment/Plan Treatment Plan: Continue Plan of Care Treatment Plan: Bed Mobility, Education, Functional Activity Xochilt, Functional Strength, Group Therapy, Gait, Safety, Therapeutic Exercise, Transfers Treatment Duration: Dec 18, 2016 Visits Per Week: 10-12 Minutes/Day (M-F): 60-90 Minutes/Day (Sat/Lucero): PRN Time/GCodes Time In: 832 Time Out: 858 Total Billed Treatment Time: 26 Total Billed Treatment 1, GT 15', Ex 10' MARLYN ESPARZA PT Nov 29, 2016 10:04
[2016-11-29] MEDS: RT-ALBUTEROL/IPRATROPIUM 3 ML (DUONEB) VIAL INH SCH ×3 (11:48→20:44)
[2016-11-29] MEDS: RT-BUDESONIDE NEBS 0.5 MG/2ML (PULMICORT) AMP INH SCH ×2 (11:48→20:44)
[2016-11-29] MEDS: SERTRALINE 50 MG (ZOLOFT) TABLET PEG SCH (13:45)
[2016-11-29] MEDS: ALFUZOSIN HCL 10 MG TAB (UROXATRAL) PO SCH (16:30)
[2016-11-29 18:04] VITALS: BP 120/64
[2016-11-30] MEDS: MEPERIDINE (DEMEROL) INJ 50 MG/ML IVP PRN ×2 (02:32→19:51)
[2016-11-30 05:08] VITALS: BP 110/56
[2016-11-30] MEDS: MAGNESIUM OXIDE (MAG-OX)400 MG TAB PEG SCH ×2 (06:20→17:15)
[2016-11-30] MEDS: RT-ALBUTEROL/IPRATROPIUM 3 ML (DUONEB) VIAL INH SCH ×3 (08:22→19:55)
[2016-11-30] MEDS: RT-BUDESONIDE NEBS 0.5 MG/2ML (PULMICORT) AMP INH SCH ×2 (08:22→19:55)
[2016-11-30] MEDS: PYRIDOXINE (VITAMIN B-6) 50 MG TABLET PEG SCH (08:54)
[2016-11-30] MEDS: CYANOCOBALAMIN 500 MCG TAB (VITAMIN B-12) PEG SCH (08:54)
[2016-11-30] MEDS: THIAMINE 100 MG (VITAMIN B-1) TAB PEG SCH (08:54)
[2016-11-30] MEDS: FAMOTIDINE 20 MG (PEPCID) TABLET PEG SCH ×2 (08:55→21:12)
[2016-11-30] MEDS: THERAPEUTIC MULTIVITAMINS LIQUID 5 ML UDC PEG SCH (08:55)
[2016-11-30] MEDS: DOCUSATE SODIUM 100 MG (COLACE) CAP PO SCH ×2 (08:55→21:00)
[2016-11-30] MEDS: KCL 20 MEQ POWDER FOR ORAL SOLUTION PO SCH (08:55)
[2016-11-30] MEDS: FOLIC ACID 1 MG TAB PEG SCH (08:55)
[2016-11-30] MEDS: lisINopril 10 MG (PRINIVIL) TAB PEG SCH (08:57)
[2016-11-30] MEDS: POLYETHYLENE GLYCOL 17 GM (MIRALAX) PACK PO SCH (08:58)
[2016-11-30 09:00] VITALS: BP 115/58
[2016-11-30] MEDS: NYSTATIN CREAM (MYCOSTATIN) 30 GM TUBE TP SCH ×3 (09:15→21:13)
[2016-11-30] MEDS: BACITRACIN OINTMENT 28 GM TUBE TOP SCH ×2 (09:15→21:13)
[2016-11-30 13:13] LABS: BASOPHILS % (AUTO) 0 % (0-10); EOSINOPHILS # (AUTO) 0.2 10^3/uL (0.0-0.3); EOSINOPHILS % (AUTO) 1 % (0-10); LYMPHOCYTES % (AUTO) 9 % (12-44); MEAN CORPUSCULAR HEMOGLOBIN 28 PG (25-34); MEAN CORPUSCULAR HGB CONC 33 G/DL (32-36); MEAN CORPUSCULAR VOLUME 86 FL (80-99); MONOCYTES # (AUTO) 0.8 X 10^3 (0.0-1.0); MONOCYTES % (AUTO) 7 % (0-12); NEUTROPHILS # (AUTO) 9.1 X 10^3 (1.8-7.8); NEUTROPHILS % (AUTO) 83 % (42-75); PLATELET COUNT 309 10^3/uL (130-400); RED BLOOD COUNT 3.49 10^6/uL (4.35-5.85); RED CELL DISTRIBUTION WIDTH 14.7 % (10.0-14.5)
[2016-11-30 13:41] VITALS: BP 145/72
[2016-11-30 13:44] LABS: ALANINE AMINOTRANSFERASE 21 U/L (0-55); ALBUMIN 3.3 G/DL (3.2-4.5); ANION GAP 11 MMOL/L (5-14); ASPARTATE AMINO TRANSFERASE 15 U/L (5-34); BILIRUBIN,TOTAL 0.3 MG/DL (0.1-1.0); BLOOD UREA NITROGEN 11 MG/DL (7-18); BUN/CREATININE RATIO 19; CALCIUM 8.6 MG/DL (8.5-10.1); CARBON DIOXIDE 24 MMOL/L (21-32); CHLORIDE 95 MMOL/L (98-107); CREATININE SERUM 0.57 MG/DL (0.60-1.30); GFR ESTIMATED > 60; GLUCOSE 153 MG/DL (70-105); POTASSIUM 4.5 MMOL/L (3.6-5.0); SODIUM 130 MMOL/L (135-145); TOTAL PROTEIN 6.3 G/DL (6.4-8.2)
[2016-11-30] MEDS: SERTRALINE 50 MG (ZOLOFT) TABLET PEG SCH (15:18)
[2016-11-30 17:14] VITALS: BP 119/65
[2016-11-30] MEDS: ALFUZOSIN HCL 10 MG TAB (UROXATRAL) PO SCH (17:15)
[2016-11-30] MEDS: CATHETER FLUSH 10 ML SYR IV PRN (19:59)
[2016-11-30] MEDS ORDERED: CATHETER FLUSH 10 ML SYR IV PRN (20:00)
[2016-12-01 05:18] VITALS: BP 102/52
[2016-12-01] MEDS: MAGNESIUM OXIDE (MAG-OX)400 MG TAB PEG SCH (05:33)
[2016-12-01] MEDS: MEPERIDINE (DEMEROL) INJ 50 MG/ML IVP PRN (05:48)
[2016-12-01] MEDS: CATHETER FLUSH 10 ML SYR IV PRN (05:49)
[2016-12-01] MEDS: RT-ALBUTEROL/IPRATROPIUM 3 ML (DUONEB) VIAL INH SCH (06:43)
[2016-12-01] MEDS: RT-BUDESONIDE NEBS 0.5 MG/2ML (PULMICORT) AMP INH SCH (06:45)
[2016-12-01] MEDS: lisINopril 10 MG (PRINIVIL) TAB PEG SCH (09:55)
[2016-12-01] MEDS: FAMOTIDINE 20 MG (PEPCID) TABLET PEG SCH (09:55)
[2016-12-01] MEDS: THERAPEUTIC MULTIVITAMINS LIQUID 5 ML UDC PEG SCH (09:55)
[2016-12-01] MEDS: DOCUSATE SODIUM 100 MG (COLACE) CAP PO SCH (09:55)
[2016-12-01] MEDS: KCL 20 MEQ POWDER FOR ORAL SOLUTION PO SCH (09:56)
[2016-12-01] MEDS: BACITRACIN OINTMENT 28 GM TUBE TOP SCH (09:56)
[2016-12-01] MEDS: PYRIDOXINE (VITAMIN B-6) 50 MG TABLET PEG SCH (09:56)
[2016-12-01] MEDS: THIAMINE 100 MG (VITAMIN B-1) TAB PEG SCH (09:56)
[2016-12-01] MEDS: CYANOCOBALAMIN 500 MCG TAB (VITAMIN B-12) PEG SCH (09:56)
[2016-12-01] MEDS: FOLIC ACID 1 MG TAB PEG SCH (09:56)
[2016-12-01] MEDS: POLYETHYLENE GLYCOL 17 GM (MIRALAX) PACK PO SCH (09:57)
[2016-12-01] MEDS: NYSTATIN CREAM (MYCOSTATIN) 30 GM TUBE TP SCH ×2 (09:57→14:08)
[2016-12-01] MEDS: HYDROcodone/APAP 10 MG/325 MG (LORTAB) TAB PO PRN ×2 (10:00→14:07)
[2016-12-01] MEDS ORDERED: HYDR-3820 PO (10:12)
--- NOTE | 2016-12-01 10:15 | Progress Note-Hospitalist ---
Progress Note Progress Notes/Assess & Plan Date Seen 12/01/16 Diagonsis/Assessment & Plan Had a fall last night with no apparent injury except skin tear left arm small Completed abx Lortab Rxed for DC L-spine ordered to check due to fall Demerol IV DC No fever, vital signs stable, pale, frail, thin Regular rate and rhythm, clear to auscultation no rales noted Assessment: Cervical spine surgery uncomplicated performed by Dr. Lee POD # 13 Complete dysphagia with aspiration of saliva due to epiglottis paralysis requiring feeding tube placement by Dr. Agrawal POD # 9 COPD Hypertension BPH with chronic urinary retention and neurogenic bladder requiring indwelling catheter hopefully to DC and future after cervical spine issues resolve Postoperative crackles and rales on right lower lobe with effusion and infiltrate placed on abx empirically to cover for aspiration Zosyn with D # 5 changed to PO abx and completed Plan: DC home w/HH Lortab Rx written Scribed by Talib Walker under the direct supervision of Dr. Devine. BRIJESH DEVINE DO Dec 01, 2016 10:15
--- NOTE | 2016-12-01 10:46 | Diagnostic Imaging Report ---
INDICATION: Fell, lower back pain, history of back surgery. COMPARISON STUDY: None. FINDINGS: Frontal and lateral views of the lumbar spine demonstrate bipedicular interbody and anterior fusion of L2 through S1. Disc space narrowing and minimal retrolisthesis are present at L1-2. A spinal cord stimulator is in place. Arteriosclerosis is present. No fractures are identified. IMPRESSION: There are degenerative and post operative changes of the lumbar spine. Dictated by: Dictated on workstation # [id number]
--- NOTE | 2016-12-01 11:38 | Occupational Ther Daily Note ---
OT Current Status-Daily Note Subjective Pt in bed, agrees to treatment. Pt reports 7/10 low back pain, but states it is better than last night. Mental Status/Objective Functional [place] Measure 0=Not Assessed/NA 4=Minimal Assistance 1=Total Assistance 5=Supervision or Setup 2=Maximal Assistance 6=Modified [place] 3=Moderate Assistance 7=Complete [place] Attachments: Jones Catheter ADL-Treatment Supine to sit with modified independence. Sit to stand with modified independence. Gait to therapy gym with FWW, no LOB noted. Pt demonstrated ability to perform toilet transfer with supervision using grab bars. Pt completed toileting with SBA for balance during clothing management. Transfer to walk in shower with SBA using grab bars. Pt completed bathing using hand held shower and long handled sponge. Cervical collar in place during shower. Pt able to wash/dry all areas with increased time. Pt used long handled sponge to wash lower legs/feet. Stood with supervision for balance while washing buttocks. RN present after shower to change dressing on neck. Cervical collar pads were changed after shower. Don pullover shirt with set up. Pt able to thread catheter through pant leg and don underwear and pants with SBA using FWW for balance during pant hike. Don socks with set up using sock aid. Pt stood at sink for grooming tasks. Pt able to comb hair and brush teeth with modified independence. Increased time for ADL tasks. Pt sitting in chair with needs met after session. Pt will be discharging home with family support. Pt states he has a FWW, w/c, hospital bed, shower chair, and toilet riser. Pt thinks he has a sock aid at home and states they will be getting grab bars in the bathroom. Pt has no questions or concerns at this time. Functional [place] Measure 0=Not Assessed/NA 4=Minimal Assistance 1=Total Assistance 5=Supervision or Setup 2=Maximal Assistance 6=Modified [place] 3=Moderate Assistance 7=Complete IndependenceIRFPAI Quality Coding Scale 6 Independent with activity with or without an assistive device 5 Patient requires set up or clean up by helper. Patient completes activity by themselves 4 Supervision or touching assist (CGA). [place] provide cues , steadying assist 3 The helper provides less than half the effort to complete the activity 2 The helper provides more than half the effort to complete the activity 1 Dependent. The helper does all the effort to complete an activity 7 Patient refused to complete or attempt activity 9 The patient did not perform the activity before the current illness or injury 88 Not attempted due to Medical conditions or safety concerns Grooming (FIM): 6 Oral Hygiene (QC): 6 Bathing (FIM): 5 Shower/Bathe Self (QC): 4 (Supervision) Upper Body (FIM): 5 Upper Body Dressing (QC): 5 Lower Body Dressing (FIM): 5 Lower Body Dressing (QC): 4 (Supervision) On/Off Footwear (QC): 5 (Set up) Toileting (FIM): 5 Toileting Hygiene (QC): 4 Toilet/Commode Transfer (FIM): 5 Toilet Transfer (QC): 4 (supervision) Shower Transfer(FIM): 5 OT Short Term Goals Short Term Goals Time Frame: Dec 04, 2016 Grooming(FIM): 5 Bathing(FIM): 4 Upper Body Dressing(FIM): 5 Lower Body Dressing(FIM): 4 Toileting(FIM): 3 Toilet/Commode Transfer(FIM): 5 Shower Transfer(FIM): 4 Additional Short Term Goals: 1-Demonstrate ADL Tasks, 2-Verbalize Understanding , 3-ImproveStrength/Xochilt 1=Demonstrate adherence to instructed precautions during ADL tasks. 2=Patient will verbalize/demonstrate understanding of assistive devices/ modifications for ADL. 3=Patient will improve strength/tolerance for activity to enable patient to perform ADL's. OT Alf Goals Supervisor Costuming Goals Time Frame: Dec 18, 2016 Eating (FIM): 6 (not met) Eating (QC): 6 Groomin (met 12/01/16) Oral Hygiene (QC): 6 (6-MET) Bathing(FIM): 5 (met 12/01/16) Shower/Bathe Self (QC): 4 (4-MET) Upper Body Dressing(FIM): 5 (met 12/01/16) Upper Body Dressing (QC): 5 (5-MET) Lower Body Dressing(FIM): 5 (met 12/01/16) Lower Body Dressing (QC): 5 (4-Not Met) On/Off Footwear (QC): 5 (5-MET) Toileting(FIM): 6 (not met) Toileting Hygiene (QC): 6 (5-not met) Toilet/Commode Transfer(FIM): 6 Shower Transfer(FIM): 5 (met 12/01/16) Additional Goals: 1-Demonstrate ADL Tasks, 2-Verbalize Understanding, 3- ImproveStrength/Xochilt 1=Demonstrate adherence to instructed precautions during ADL tasks. 2=Patient will verbalize/demonstrate understanding of assistive devices/ modifications for ADL. 3=Patient will improve strength/tolerance for activity to enable patient to perform ADL's. OT Education/Plan Discharge Recommendations Plan/Recommendations: Continue POC Treatment Plan/Plan of Care Patient would benefit from OT for education, treatment and training to promote independence in ADL's, mobility, safety and/or upper extremity function for ADL' s. Plan of Care: ADL Retraining, Functional Mobility, Group Exercise/Act as Ind, UE Funct Exercise/Act, UE Neuromus Re-Ed/Coord Treatment Duration: Dec 18, 2016 Visits Per Week: 10-12 Minutes/Day (M-F): 60-90 Minutes/Day (Sat/Lucero): PRN Agreement: Yes Rehab Potential: Guarded Time/GCodes Start Time: 08:00 Stop Time: 09:15 Total Time Billed (hr/min): 75 Billed Treatment Time 1 visit, ADLx5(75minutes) GEE GOMEZ OT Dec 01, 2016 11:38
--- NOTE | 2016-12-01 12:42 | Physical Therapy Daily Note ---
PT Daily Note-Current Subjective Agrees. Hopeful to go home today. Pain Numeric Pain Scale: 8 Location: Lower Location Body Site: Back Pain Description: Ache (/sore) Mental Status Patient Orientation: Person, Place, Time, Situation Transfers Functional [place] Measure 0=Not Assessed/NA 4=Minimal Assistance 1=Total Assistance 5=Supervision or Setup 2=Maximal Assistance 6=Modified [place] 3=Moderate Assistance 7=Complete IndependenceIRFPAI Quality Coding Scale 6 Independent with activity with or without an assistive device 5 Patient requires set up or clean up by helper. Patient completes activity by themselves 4 Supervision or touching assist (CGA). [place] provide cues , steadying assist 3 The helper provides less than half the effort to complete the activity 2 The helper provides more than half the effort to complete the activity 1 Dependent. The helper does all the effort to complete an activity 7 Patient refused to complete or attempt activity 9 The patient did not perform the activity before the current illness or injury 88 Not attempted due to Medical conditions or safety concerns Transfers (B, C, W/C) (FIM): 7 Roll Left to Right (QC): 6 Supine to/from Sit: 7 Sit to/from Stand: 7 Sit to Lying (QC): 6 Sit to Stand (QC): 6 Chair/Jub-oj-[place]rko[place] Xfer(QC): 6 Car Transfer (QC): 6 Pt requires no assist for transfers. Weight Bearing Weight Bearing Restriction: Weight Bearing/Tolerated Gait Training Does the Patient Walk?: Yes Gait (FIM): 6 Distance (FIM): 3=150 ft Walk 10 feet (QC): 6 Walk 50 ft with 2 Turns(QC): 6 Walk 150 ft (QC): 6 Walking 10ft/uneven surface-QC: 6 Gait Level of Assist: 6 Gait Assistive Device: FWW steppage gait bilaterally noted due to hx of low back injury Wheelchair Training Does the Pt Use a Wheelchair?: No Stair Training Stair Training: Handrails/: 1 handrail Stairs (FIM): 5 #of Steps: 12 1 Step (curb) (QC): 5 4 Steps (QC): 5 12 Steps (QC): 5 Stairs: Pattern: Step to SBA on stairs. Balance Picking up an Object (QC): 88 (due to recent surgery, bending is restricted. ) Exercises NuStep Minutes: 15 Treatments Gait and stairs as well as functional transfers and nu step Assessment Current Status: Excellent Progress Pt made excellent progress and is meeting goals set at evaluation. Pt to discharge home with follow up C recommended to continue to progress mobility in his household and to the community. PT Short Term Goals Short Term Goals Time Frame: Dec 04, 2016 Gait (FIM): 5 Distance (FIM): 3=150 ft Gait Distance Comment: 150' Gait Level of Assist: 5 Gait Assistive Device: FWW PT Transportation Officer Goals Transportation Officer Goals PT Transportation Officer Goals Time Frame: Dec 18, 2016 Transfers (B,C,W/C) (FIM): 6 (met; scored a 7) Sit to Lying (QC): 5 (met) Lying-Sitting on Side/Bed(QC): 5 (met) Sit to Stand (QC): 5 (met) Rollin Roll Left to Right (QC): 5 (met) Chair/Rhm-cg-Fthto Xfer(QC): 5 (met) Car Transfer (QC): 5 (met) Does the Patient Walk: Yes Gait (FIM): 6 (mt) Gait distance (FIM): 3=150 ft Distance: 150' Walk 10 feet (QC): 5 (met) Walk 10ft-Uneven Surface(QC): 5 (met) Walk 50ft with 2 Turns (QC): 5 (met) Walk 150 ft (QC): 5 (met) Gait Level of Assist: 6 Gait Assistive Device: FWW Stairs (FIM): 2 (met) # of Steps: 4 1 Step (curb) (QC): 5 4 Steps (QC): 5 (met) 12 Steps (QC): 9 Stairs Level Of Assist: 5 Picking up an Object (QC): 5 (unmet; did not test) PT Plan Treatment/Plan Treatment Plan: Discontinue PT, goals met Treatment Plan: Bed Mobility, Education, Functional Activity Xochilt, Functional Strength, Group Therapy, Gait, Safety, Therapeutic Exercise, Transfers Treatment Duration: Dec 18, 2016 Visits Per Week: 10-12 Minutes/Day (M-F): 60-90 Minutes/Day (Sat/Lucero): PRN Safety Risks/Education Patient Education: Safety Issues Teaching Recipient: Patient Teaching Methods: Discussion Response to Teaching: Verbalize Understanding, Return Demonstration Discharge Recommendations Therapy D/C Recommendations: Physical Therapy Home Care Time/GCodes Time In: 1020 Time Out: 1115 Total Billed Treatment Time: 55 Total Billed Treatment visit GT 30 FA 10 EX 15 RENU CUELLO PT Dec 01, 2016 12:42
--- NOTE | 2016-12-01 12:46 | Therapy Team Discharge Summary ---
Therapy Discharge Summary Discharge Recommendations Date of Discharge Therapy D/C Recommendations: Physical Therapy Home Care Physical Therapy This patient has been seen by skilled PT services post cervical spine surgery to address functional weakness, decreased ability to transfer and ambulate without assist and limited functional activity tolerance. He has made excellent progress throughout the course of therapy and has met all goals set at evaluation. he is indep with transfers and mod indep with gait using a FWW. His gait pattern is still somewhat impaired with decreased DF bilaterally, but he does compensate with a greater hip flexion with gait. He is still at risk for falls due to impaired gait. Pt would benefit from continued therapy services on a [facility] level to address functional mobility and safety in his home. DC PT. PT Career Services Representative Goals Senior Living Goals PT Career Services Representative Goals Time Frame: Dec 18, 2016 Transfers (B,C,W/C) (FIM): 6 (met; scored a 7) Roll Left to Right (QC): 5 (met) Sit to Lying (QC): 5 (met) Lying-Sitting on Side/Bed(QC): 5 (met) Sit to Stand (QC): 5 (met) Chair/Nyf-gt-Cmgtx Xfer(QC): 5 (met) Car Transfer (QC): 5 (met) Does the Patient Walk: Yes Gait (FIM): 6 (mt) Gait distance (FIM): 3=150 ft Distance: 150' Walk 10 feet (QC): 5 (met) Walk 10ft-Uneven Surface(QC): 5 (met) Walk 50ft with 2 Turns (QC): 5 (met) Walk 150 ft (QC): 5 (met) Gait Level of Assist: 6 Gait Assistive Device: FWW Stairs (FIM): 2 (met) # of Steps: 4 1 Step (curb) (QC): 5 4 Steps (QC): 5 (met) 12 Steps (QC): 9 Stairs Level Of Assist: 5 Picking up an Object (QC): 5 (unmet; did not test) OT Senior Living Goals Career Services Representative Goals Time Frame: Dec 18, 2016 Eating (FIM): 6 (not met) Eating (QC): 6 Oral Hygiene (QC): 6 (6-MET) Grooming(FIM): 6 (met 12/01/16) Bathing(FIM): 5 (met 12/01/16) Shower/Bathe Self (QC): 4 (4-MET) Upper Body Dressing(FIM): 5 (met 12/01/16) Upper Body Dressing (QC): 5 (5-MET) Lower Body Dressing(FIM): 5 (met 12/01/16) Lower Body Dressing (QC): 5 (4-Not Met) On/Off Footwear (QC): 5 (5-MET) Toileting(FIM): 6 (not met) Toileting Hygiene (QC): 6 (5-not met) Toilet/Commode Transfer(FIM): 6 Shower Transfer(FIM): 5 (met 12/01/16) Additional Goals: 1-Demonstrate ADL Tasks, 2-Verbalize Understanding, 3- ImproveStrength/Xochilt 1=Demonstrate adherence to instructed precautions during ADL tasks. 2=Patient will verbalize/demonstrate understanding of assistive devices/ modifications for ADL. 3=Patient will improve strength/tolerance for activity to enable patient to perform ADL's. Speech Career Services Representative Goals Career Services Representative Goals 1. The patient will tolerate the least restrictive diet without signs/symptoms of aspiration or laryngeal penetration. 2. The patient will participate in an additional modified barium swallow in approximately six to eight weeks. Time Frame: Six to Eight Weeks RENU CUELLO PT Dec 01, 2016 12:46
--- NOTE | 2016-12-01 13:11 | Therapy Team Discharge Summary ---
Therapy Discharge Summary Discharge Recommendations Date of Discharge Therapy D/C Recommendations: Physical Therapy Home Care Occupational Therapy Pt admitted to ARU following cervical spine surgery. On admission pt required minimal assistance for grooming, UE dressing, and transfers; and maximal assistance for LE dressing. Skilled OT intervention focused on ADL training, transfers, strengthening/coordination, and safety education. Pt made good progress with therapy and by discharge is completing grooming with modified independence, and dressing, transfers, bathing, and toileting with SBA/set up. Pt met goals for grooming, bathing, dressing, and shower transfer, but did not meet other goals. Pt is to d/c today with family support. D/C ARU OT at this time. PT Dry Clipper Tender Goals Senior Care Goals PT Dry Clipper Tender Goals Time Frame: Dec 18, 2016 Transfers (B,C,W/C) (FIM): 6 (met; scored a 7) Roll Left to Right (QC): 5 (met) Sit to Lying (QC): 5 (met) Lying-Sitting on Side/Bed(QC): 5 (met) Sit to Stand (QC): 5 (met) Chair/Mvt-zp-Rkxvu Xfer(QC): 5 (met) Car Transfer (QC): 5 (met) Does the Patient Walk: Yes Gait (FIM): 6 (mt) Gait distance (FIM): 3=150 ft Distance: 150' Walk 10 feet (QC): 5 (met) Walk 10ft-Uneven Surface(QC): 5 (met) Walk 50ft with 2 Turns (QC): 5 (met) Walk 150 ft (QC): 5 (met) Gait Level of Assist: 6 Gait Assistive Device: FWW Stairs (FIM): 2 (met) # of Steps: 4 1 Step (curb) (QC): 5 4 Steps (QC): 5 (met) 12 Steps (QC): 9 Stairs Level Of Assist: 5 Picking up an Object (QC): 5 (unmet; did not test) OT Dry Clipper Tender Goals Dry Clipper Tender Goals Time Frame: Dec 18, 2016 Eating (FIM): 6 (not met) Eating (QC): 6 Oral Hygiene (QC): 6 (6-MET) Grooming(FIM): 6 (met 12/01/16) Bathing(FIM): 5 (met 12/01/16) Shower/Bathe Self (QC): 4 (4-MET) Upper Body Dressing(FIM): 5 (met 12/01/16) Upper Body Dressing (QC): 5 (5-MET) Lower Body Dressing(FIM): 5 (met 12/01/16) Lower Body Dressing (QC): 5 (4-Not Met) On/Off Footwear (QC): 5 (5-MET) Toileting(FIM): 6 (not met) Toileting Hygiene (QC): 6 (5-not met) Toilet/Commode Transfer(FIM): 6 Shower Transfer(FIM): 5 (met 12/01/16) Additional Goals: 1-Demonstrate ADL Tasks, 2-Verbalize Understanding, 3- ImproveStrength/Xochilt 1=Demonstrate adherence to instructed precautions during ADL tasks. 2=Patient will verbalize/demonstrate understanding of assistive devices/ modifications for ADL. 3=Patient will improve strength/tolerance for activity to enable patient to perform ADL's. Speech Senior Care Goals Senior Care Goals 1. The patient will tolerate the least restrictive diet without signs/symptoms of aspiration or laryngeal penetration. 2. The patient will participate in an additional modified barium swallow in approximately six to eight weeks. Time Frame: Six to Eight Weeks GEE GOMEZ OT Dec 01, 2016 13:11
[2016-12-01] MEDS: SERTRALINE 50 MG (ZOLOFT) TABLET PEG SCH (14:00)
[2016-12-01 14:30] VITALS: BP 102/52
--- NOTE | 2016-12-01 14:53 | Therapy Team Discharge Summary ---
Therapy Discharge Summary Discharge Recommendations Date of Discharge Therapy D/C Recommendations: Physical Therapy Home Care Speech-Language Pathology The patient was recently admitted to [facility] following a cervical spine procedure. Upon admission, the patient reported significant dysphagia with all consistencies tested. A video swallow was completed (11/21/16 ) which revealed aspiration of honey-thick liquid and puree. The patient was placed NPO with a PEG tube for total nutrition, hydration, and medication. The patient participated in dysphagia therapy and repeated the video swallow one week following (11/27/16). Aspiration was noted of thin liquid and deep laryngeal penetration with honey-thick liquid. Oral trials of puree were initiated following the second video swallow (with compensatory strategies), however, the patient continues to receive total nutrition and hydration via PEG. The patient will discharge with home health services and continued speech therapy. The patient met dysphagia goals, which included independence with dysphagia exercises. The patient will be discharged from acute inpatient rehabilitation speech services at this time. PT Mcc Goals Mcc Goals PT [employer] Management System Operator Goals Time Frame: Dec 18, 2016 Transfers (B,C,W/C) (FIM): 6 (met; scored a 7) Roll Left to Right (QC): 5 (met) Sit to Lying (QC): 5 (met) Lying-Sitting on Side/Bed(QC): 5 (met) Sit to Stand (QC): 5 (met) Chair/Jbi-de-Oojqn Xfer(QC): 5 (met) Car Transfer (QC): 5 (met) Does the Patient Walk: Yes Gait (FIM): 6 (mt) Gait distance (FIM): 3=150 ft Distance: 150' Walk 10 feet (QC): 5 (met) Walk 10ft-Uneven Surface(QC): 5 (met) Walk 50ft with 2 Turns (QC): 5 (met) Walk 150 ft (QC): 5 (met) Gait Level of Assist: 6 Gait Assistive Device: FWW Stairs (FIM): 2 (met) # of Steps: 4 1 Step (curb) (QC): 5 4 Steps (QC): 5 (met) 12 Steps (QC): 9 Stairs Level Of Assist: 5 Picking up an Object (QC): 5 (unmet; did not test) OT [employer] Management [employer] Operator Goals [employer] Operator Goals Time Frame: Dec 18, 2016 Eating (FIM): 6 (not met) Eating (QC): 6 Oral Hygiene (QC): 6 (6-MET) Grooming(FIM): 6 (met 12/01/16) Bathing(FIM): 5 (met 12/01/16) Shower/Bathe Self (QC): 4 (4-MET) Upper Body Dressing(FIM): 5 (met 12/01/16) Upper Body Dressing (QC): 5 (5-MET) Lower Body Dressing(FIM): 5 (met 12/01/16) Lower Body Dressing (QC): 5 (4-Not Met) On/Off Footwear (QC): 5 (5-MET) Toileting(FIM): 6 (not met) Toileting Hygiene (QC): 6 (5-not met) Toilet/Commode Transfer(FIM): 6 Shower Transfer(FIM): 5 (met 12/01/16) Additional Goals: 1-Demonstrate ADL Tasks, 2-Verbalize Understanding, 3- ImproveStrength/Xochilt 1=Demonstrate adherence to instructed precautions during ADL tasks. 2=Patient will verbalize/demonstrate understanding of assistive devices/ modifications for ADL. 3=Patient will improve strength/tolerance for activity to enable patient to perform ADL's. Speech Mcc Goals [employer] Management System Operator Goals 1. The patient will tolerate the least restrictive diet without signs/symptoms of aspiration or laryngeal penetration. 2. The patient will participate in an additional modified barium swallow in approximately six to eight weeks. Time Frame: Six to Eight Weeks GORDON DOUGLAS [facility]Dec 01, 2016 14:53
--- NOTE | 2016-12-01 19:36 | PM & R (SOAP) Progress Note ---
Subjective Subjective/Events-last exam Was contacted BY RN earlier today re patients c/o incresed back pain since a fall yesterday when he tripped over his INdwelling Jones catheter Discussed with MELLISSA and RN Appreciate DR Foreman note and orders,for Lortab RX,Form completed for home Tube feeds due to dysphagia Appreciate Discharge notes from PT/OT/ST..XRay Lumbar spine obtained due to patients complaints NO acute injury noted Objective Exam Last Set of Vital Signs Vital Signs Date Time Temp Pulse Resp B/P Pulse Ox O2 Delivery O2 Flow Rate FiO2 12/01/16 14:30 71 18 102/52 96 12/01/16 08:50 Room Air 12/01/16 05:18 97.5 Capillary Refill : I&O Intake and Output 12/01/16 00:00 Intake Total 3800 ml Output Total 3325 ml Balance 475 ml Intake Oral 0 ml Tube Feeding 1400 ml Other 2400 ml Output Urine Total 3325 ml # Bowel Movements 1 General: Alert, No Acute Distress HEENT: Atraumatic, PERRLA, EOMI, Mucous Memb Moist/[place], Other (dysphagia) Neck: Other (Rigid collar in place) Lungs: Normal Air Movement Heart: Regular Rate Abdomen: Normal Bowel Sounds, Soft, No Tenderness Skin: Other (right buttock wound improved.) Neuro: Other (decreased sensation to touch in hands and feet Decreased strength in all 4 limbs) Results Lab Laboratory Tests 11/30/16 13:05: Alanine Aminotransferase (ALT/SGPT) 21, Albumin 3.3, Alkaline Phosphatase 78, Anion Gap 11, Aspartate Amino Transf (AST/SGOT) 15, BUN/Creatinine Ratio 19, Basophils # (Auto) 0.0, Basophils (%) (Auto) 0, Blood Urea Nitrogen 11, Calcium Level 8.6, Carbon Dioxide Level 24, Chloride Level 95L, Creatinine 0.57L, Eosinophils # (Auto) 0.2, Eosinophils (%) (Auto) 1, Estimat Glomerular Filtration Rate > 60, Glucose Level 153H, Hematocrit 30L, Hemoglobin 9.8#L, Lymphocytes # (Auto) 1.0, Lymphocytes (%) (Auto) 9L, Mean Corpuscular Hemoglobin 28, Mean Corpuscular Hemoglobin Concent 33, Mean Corpuscular Volume 86, Mean Platelet Volume 10.0, Monocytes # (Auto) 0.8, Monocytes (%) (Auto) 7, Neutrophils # (Auto) 9.1H, Neutrophils (%) (Auto) 83H, Platelet Count 309, Potassium Level 4.5, Red Blood Count 3.49L, Red Cell Distribution Width 14.7H, Sodium Level 130L, Total Bilirubin 0.3, Total Protein 6.3L, White Blood Count 11.0 Microbiology 11/20/16 Blood Culture - Final, Complete No growth Assessment/Plan Assessment Ambulatory dysfunction secondary to Cervical spondylosis s/p decompression orthospine 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 Neurogenic bladder-managed with Indwelling Jones catheter PTSD HTN controlled HX of tobaccoism Chronic low back pain s/p spinal surgereies in the past Thoracic and abdominal aortic aneurysm monitored by PCP Post-op anemia Fungal groin rash Fall with incresed Low back pain RX given for home and XRays negative for acute Injury Plan Discharge today to home in [place] with family with [facility] Patient will require Ongoing Tube feeds for up to 99 months due to post-op dysphagia and NPO status-Hopefully will improve gradually with ongoing [facility] ST or Outpatient ST F/U with PCP DR Bolanos in [place] re this-Patient not scheduled to see me again F/U with DR Rosa Gonzalez See orders. DAVID MORENO MD Dec 01, 2016 19:36
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
== END 2016-12-01 14:30 | disposition home health service (06) | DRG 560 ==
PROVIDERS: ADMIT Physical Medicine & Rehabilitation; ATTEND Physical Medicine & Rehabilitation
PROC: 0DB78ZX Excision of Stomach, Pylorus, Via Natural or Artificial Opening Endoscopic, Diagnostic (ICD-10-PCS; 2016-11-21)
PROC: 0DH63UZ Insertion of Feeding Device into Stomach, Percutaneous Approach (ICD-10-PCS; principal; 2016-11-21 12:30)
DX: Z47.89 Encounter for other orthopedic aftercare (principal); Z98.1 Arthrodesis status; R13.19 Other dysphagia; J38.01 Paralysis of vocal cords and larynx, unilateral; E46 Unspecified protein-calorie malnutrition; N40.1 Benign prostatic hyperplasia with lower urinary tract symptoms; R33.9 Retention of urine, unspecified; N31.9 Neuromuscular dysfunction of bladder, unspecified; K21.0 Gastro-esophageal reflux disease with esophagitis; K29.70 Gastritis, unspecified, without bleeding; I10 Essential (primary) hypertension; J44.9 Chronic obstructive pulmonary disease, unspecified; M54.9 Dorsalgia, unspecified; F43.10 Post-traumatic stress disorder, unspecified; I71.4 Abdominal aortic aneurysm, without rupture; I71.2 Thoracic aortic aneurysm, without rupture; R91.1 Solitary pulmonary nodule; L89.150 Pressure ulcer of sacral region, unstageable; B36.9 Superficial mycosis, unspecified; Z87.891 Personal history of nicotine dependence; W18.09XA Striking against other object with subsequent fall, initial encounter; Y92.239 Unspecified place in hospital as the place of occurrence of the external cause
CPT/HCPCS: 36415; 71020; 71035; 72100; 74230; 80053; 83605; 85025; 87040; 88305; 88342; 94640; 94760

== ENCOUNTER → 2016-12-26 | Outpatient (CLI) | payer MEDICARE, OTHER ==
[~2016-12-26] MED LIST changes: +ACET325T49 PEG; +BACI28.4 TOP; +FAMO20TA5 PEG; +FOLI1TAB24 PEG; +HYDR-3820 PO; +NYST15CR TP; +POTA20PA28 PO
--- NOTE | 2016-12-26 12:38 | Diagnostic Imaging Report ---
EXAMINATION: Modified barium swallow. Indication: Dysphagia Different consistencies of fluid and food was given mixed with barium and swallowing was visualized under fluoroscopy. FLUOROSCOPY TIME: 2 minutes and 8 seconds FINDINGS: No aspiration seen. There is penetration with the thin liquid seen however. Cervical spine fusion hardware is seen. IMPRESSION: Mild penetration with thin liquids. No aspiration seen. Please refer to speech therapist's report for additional details . Dictated by: Dictated on workstation # [id number]
== END ==
LOC: RAD 09:34
PROVIDERS: ATTEND Otolaryngology Otolaryngology/Facial Plastic Surgery
DX: R13.12 Dysphagia, oropharyngeal phase (principal)
CPT/HCPCS: 74230